=== PATIENT | male | born 1990 | race Caucasian/White ===

== ENCOUNTER 2018-08-20 18:36 | Emergency (ER) | payer BC ==
[2018-08-20] MEDS ORDERED: Sodium Chloride 0.9% 1,000 ML IV ONE (19:46)
[2018-08-20 20:11] LABS: VENOUS BLOOD GAS BASE EXCESS -0.2 mmol/L (0.0-2.0); VENOUS BLOOD GAS PCO2 44 mmHg (40-60); VENOUS BLOOD GAS PO2 25 mm/Hg (30-55); VENOUS BLOOD PH 7.37 (7.32-7.43)
[2018-08-20] MEDS ORDERED: Sodium Chloride 0.9% 1,000 ML ONE (20:11)
[2018-08-20 20:26] LABS: BASO # 0.1 K/uL (0.0-0.2); BASO % 0.9 % (0.0-2.0); EOS % 0.1 % (0.0-4.0); HEMOGLOBIN 13.1 g/dL (12.0-18.0); LYMPH # 1.6 K/uL (1.0-4.3); LYMPH % 25.7 % (20.0-40.0); MEAN CELL VOLUME 87.8 fL (80.0-94.0); MEAN CORPUSCULAR HEMOGLOBIN 28.3 pg (27.0-31.0); MEAN CORPUSCULAR HGB CONC 32.3 g/dL (33.0-37.0); MEAN PLATELET VOLUME 8.5 fL (7.2-11.7); MONO # 0.6 K/uL (0.0-0.8); MONO % 9.5 % (0.0-10.0); NEUT # 3.9 K/uL (1.8-7.0); NEUT % 63.8 % (50.0-75.0); NRBC % 0.2 % (0.0-2.0); PLATELET COUNT 176 K/uL (130-400); RBC 4.61 Mil/uL (4.40-5.90); RED CELL DISTRIBUTION WIDTH 12.7 % (11.5-14.5)
[2018-08-20 20:28] VITALS: O2SAT 97
[2018-08-20 20:39] LABS: ALBUMIN 4.4 g/dL (3.5-5.0); BLOOD UREA NITROGEN 8 mg/dL (9-20); CALCIUM 8.9 mg/dl (8.6-10.4); GFR NON-AFRICAN AMERICAN > 60
[2018-08-20 20:40] LABS: ALB/GLOB RATIO 1.3 (1.0-2.1); ALT/SGPT 48 U/L (21-72); AST/SGOT 52 U/L (17-59)
--- NOTE | 2018-08-20 21:01 | C.PDOC ---
History Of Present Illness 28 year old male presents to ED with complaint of fever, chills, eye burning, and epigastric pain since last night. Patient has a temperature of 103. He recently arrived from [place] on 07/22/18 and started experiencing fever on 9. He saw his PMD and tested positive for Dengue fever. Patient states that he has been feeling better, but these symptoms began last night. He was not tested for malaria or typhoid fever. He denies any sick contacts. Patient denies nausea, vomiting, and diarrhea. <Nova Cochran - Last Filed: 08/20/18 22:15> History Per: Patient History/Exam Limitations: no limitations Onset/Duration Of Symptoms: Days (1) Current Symptoms Are (Timing): Still Present Context: Travel Location Of Pain/Discomfort: Epigastric Quality Of Discomfort: "Pain" Associated Symptoms: Fever, Chills, Other (eye burning). denies: Nausea, Vomiting, Diarrhea <Nova Cochran - Last Filed: 08/20/18 22:15> <Aleena Odonnell - Last Filed: 08/21/18 21:00> Time Seen by Provider: 08/20/18 19:46 Chief Complaint (Nursing): Flu-like Symptoms Past Medical History Reviewed: Historical Data, Nursing Documentation, Vital Signs Vital Signs: Last Vital Signs Temp 98.8 F 08/20/18 19:02 Pulse 92 H 08/20/18 20:27 Resp 18 08/20/18 20:27 BP 115/75 08/20/18 20:27 Pulse Ox 97 08/20/18 20:27 - Medical History PMH: No Chronic Diseases Surgical History: No Surg Hx Family History: States: Unknown Family Hx - Social History Hx Alcohol Use: Yes Hx Substance Use: No - Immunization History Hx Tetanus Toxoid Vaccination: No Hx Influenza Vaccination: No Hx Pneumococcal Vaccination: No <Nova Cochran - Last Filed: 08/20/18 22:15> Vital Signs: Last Vital Signs Temp 99.1 F 08/20/18 21:36 Pulse 90 08/20/18 21:36 Resp 20 08/20/18 21:36 BP 108/73 08/20/18 21:36 Pulse Ox 97 08/20/18 22:17 <Aleena Odonnell - Last Filed: 08/21/18 21:00> Review Of Systems Constitutional: Positive for: Fever, Chills. Negative for: Weakness Eyes: Positive for: Pain (burning sensation) Cardiovascular: Negative for: Chest Pain, Palpitations Respiratory: Negative for: Cough, Shortness of Breath Gastrointestinal: Positive for: Abdominal Pain (epigastric area). Negative for: Nausea, Vomiting, Diarrhea Neurological: Negative for: Weakness, Numbness, Dizziness <Nova Cochran - Last Filed: 08/20/18 22:15> Physical Exam - Physical Exam Appears: Non-toxic, Other (mildly uncomfortable) Skin: Normal Color, Warm, Dry, No Rash Head: Atraumatic, Normacephalic Eye(s): bilateral: Normal Inspection, PERRL, EOMI Throat: Normal, No Erythema, No Exudate Neck: Normal ROM, Supple Lymphatic: No Other (lymphadenopathy) Chest: Symmetrical, No Deformity Cardiovascular: Rhythm Regular, Other (Tachycardic) Respiratory: No Accessory Muscle Use, No Rales, No Rhonchi, No Wheezing Gastrointestinal/Abdominal: Soft, No Tenderness Extremity: Capillary Refill (<2 seconds) Extremity: Bilateral: Atraumatic, Normal Color And Temperature Pulses: Left Radial: Normal, Right Radial: Normal Neurological/Psych: Oriented x3, Normal Speech, Normal Cognition <Nova Cochran - Last Filed: 08/20/18 22:15> ED Course And Treatment - Laboratory Results Result Diagrams: 08/20/18 20:10 08/20/18 20:10 Lab Results: pO2 25 mm/Hg (30-55) L 08/20/18 20:00 VBG pH 7.37 (7.32-7.43) 08/20/18 20:00 VBG pCO2 44 mmHg (40-60) 08/20/18 20:00 VBG HCO3 23.3 mmol/L 08/20/18 20:00 VBG Total CO2 26.8 mmol/L (22-28) 08/20/18 20:00 VBG O2 Sat (Calc) 51.8 % (40-65) 08/20/18 20:00 VBG Base Excess -0.2 mmol/L (0.0-2.0) L 08/20/18 20:00 VBG Potassium 3.2 mmol/L (3.6-5.2) L 08/20/18 20:00 Sodium 137.0 mmol/l (132-148) 08/20/18 20:00 Chloride 104.0 mmol/L (98-107) 08/20/18 20:00 Glucose 102 mg/dl (75-110) 08/20/18 20:00 Lactate 1.7 mmol/L (0.7-2.1) 08/20/18 20:00 Total Bilirubin 1.6 mg/dL (0.2-1.3) H 08/20/18 20:10 AST 52 U/L (17-59) 08/20/18 20:10 ALT 48 U/L (21-72) 08/20/18 20:10 Alkaline Phosphatase 88 U/L (38-126) 08/20/18 20:10 Total Protein 7.9 g/dL (6.3-8.3) 08/20/18 20:10 Albumin 4.4 g/dL (3.5-5.0) 08/20/18 20:10 Globulin 3.5 gm/dL (2.2-3.9) 08/20/18 20:10 Albumin/Globulin Ratio 1.3 (1.0-2.1) 08/20/18 20:10 O2 Sat by Pulse Oximetry: 97 (RA) Progress Note: Labs ordered with UA, flu a/b, and Dengue fever AB for patient. Patient given IV fluids and Toradol IVP. EKG and CXR ordered for patient. <Nova Cochran - Last Filed: 08/20/18 22:15> - Laboratory Results Result Diagrams: 08/20/18 20:10 08/20/18 20:10 Lab Results: pO2 25 mm/Hg (30-55) L 08/20/18 20:00 VBG pH 7.37 (7.32-7.43) 08/20/18 20:00 VBG pCO2 44 mmHg (40-60) 08/20/18 20:00 VBG HCO3 23.3 mmol/L 08/20/18 20:00 VBG Total CO2 26.8 mmol/L (22-28) 08/20/18 20:00 VBG O2 Sat (Calc) 51.8 % (40-65) 08/20/18 20:00 VBG Base Excess -0.2 mmol/L (0.0-2.0) L 08/20/18 20:00 VBG Potassium 3.2 mmol/L (3.6-5.2) L 08/20/18 20:00 Sodium 137.0 mmol/l (132-148) 08/20/18 20:00 Chloride 104.0 mmol/L (98-107) 08/20/18 20:00 Glucose 102 mg/dl (75-110) 08/20/18 20:00 Lactate 1.7 mmol/L (0.7-2.1) 08/20/18 20:00 Total Bilirubin 1.6 mg/dL (0.2-1.3) H 08/20/18 20:10 AST 52 U/L (17-59) 08/20/18 20:10 ALT 48 U/L (21-72) 08/20/18 20:10 Alkaline Phosphatase 88 U/L (38-126) 08/20/18 20:10 Total Protein 7.9 g/dL (6.3-8.3) 08/20/18 20:10 Albumin 4.4 g/dL (3.5-5.0) 08/20/18 20:10 Globulin 3.5 gm/dL (2.2-3.9) 08/20/18 20:10 Albumin/Globulin Ratio 1.3 (1.0-2.1) 08/20/18 20:10 Urine Color Yellow (YELLOW) 08/20/18 21:27 Urine Clarity Clear (Clear) 08/20/18 21:27 Urine pH 7.0 (5.0-8.0) 08/20/18 21:27 Ur Specific [place] 1.004 (1.003-1.030) 08/20/18 21:27 Urine Protein Negative mg/dL (NEGATIVE) 08/20/18 21:27 Urine Glucose (UA) Normal mg/dL (Normal) 08/20/18 21: Urine Ketones Negative mg/dL (NEGATIVE) 08/20/18 21:27 Urine Blood Negative (NEGATIVE) 08/20/18 21:27 Urine Nitrate Negative (NEGATIVE) 08/20/18 21: Urine Bilirubin Negative (NEGATIVE) 08/20/18 21: Urine Urobilinogen Normal mg/dL (0.2-1.0) 08/20/18 21:27 Ur Leukocyte Esterase Neg Yolis/uL (Negative) 08/20/18 21:27 Urine WBC (Auto) 3 /hpf (0-5) 08/20/18 21:27 Urine RBC (Auto) 1 /hpf (0-3) 08/20/18 21:27 Ur Squamous Epith Cells < 1 /hpf (0-5) 08/20/18 21:27 Urine Bacteria Rare (<OCC) 08/20/18 21:27 <Aleena Odonnell - Last Filed: 08/21/18 21:00> Disposition Counseled Patient/Family Regarding: Studies Performed, Diagnosis, Need For Followup, Rx Given - Disposition Disposition Time: 22:15 <Nova Cochran - Last Filed: 08/20/18 22:15> <Aleena Odonnell - Last Filed: 08/21/18 21:00> - Disposition Referrals: Rich Gaines MD [Staff Provider] - Disposition: HOME/ ROUTINE Condition: STABLE Additional Instructions: FOLLOW UP WITH YOUR DOCTOR IN 1-2 DAYS DRINK PLENTY OF FLUIDS, AND GET REST USE NAPROSYN, MOTRIN, TYLENOL NEEDED FOR PAIN, FEVER RETURN TO ER IF YOUR SYMPTOMS WORSE SOME OF YOUR TESTS ARE SEND OUTS, AND WILL TAKE SEVERAL DAYS TO RESULT COME TO MEDICAL RECORDS IN 5-7 DAYS FOR RESULTS Prescriptions: Naproxen 375 mg PO BID PRN #20 tablet PRN Reason: pain Instructions: Viral Syndrome (DC) Forms: [employer] (Gambian) Print Language: LAO - Clinical Impression Clinical Impression: Viral syndrome - Scribe Statement The provider has reviewed the documentation as recorded by the Scribe (Kellen Santiago) All medical record entries made by the Scribe were at my direction and personally dictated by me. I have reviewed the chart and agree that the record accurately reflects my personal performance of the history, physical exam, m edical decision making, and the department course for this patient. I have also personally directed, reviewed, and agree with the discharge instructions and disposition. <Nova Cochran - Last Filed: 08/20/18 22:15> Addendum Addendum: 08/21/18 20:27 Notified by micro +blood culture both anaerobic bottles growing Gram - rods. Patient notified. States he did have fever today but temp is 99 now. He denies any associated abdominal pain, N/V/D, chest pain or SOB. He was advised to return to the hospital for IV antibiotics viviane. 08/21/18 21:00 Dr Lachelle Gaines notified of results. <Aleena Odonnell - Last Filed: 08/21/18 21:00>
[2018-08-20 21:42] LABS: SQUAMOUS EPITHIAL < 1 /hpf (0-5); URINE BACTERIA RARE (<OCC); URINE BILIRUBIN NEGATIVE (NEGATIVE); URINE BLOOD NEGATIVE (NEGATIVE); URINE CLARITY Clear (Clear); URINE COLOR Yellow (YELLOW); URINE GLUCOSE (UA) NORMAL (Normal); URINE LEUKOCYTE ESTERASE NEG Leu/uL (Negative); URINE PROTEIN NEGATIVE (NEGATIVE); URINE UROBILINOGEN NORMAL mg/dL (0.2-1.0)
[2018-08-20 22:07] LABS: INTRACELLULAR PARASITE NEGATIVE (NEGATIVE)
[2018-08-20 22:26] VITALS: BP 108/73; PULSE 90; RESP 20; TEMP 99.1
--- NOTE | 2018-08-21 08:33 | RAD ---
Chest x-ray single frontal view HISTORY: Fever. COMPARISON: None available. Findings: No focal infiltrate or effusion. Heart size within normal limits. Impression: No focal infiltrate or effusion.
[2018-08-21 10:15] LABS: INTRACELLULAR PARASITE NEGATIVE (NEGATIVE)
--- NOTE | 2018-08-21 21:37 | CARD ---
APPROVED REPORT Date of service: 08/20/2018 EKG Measurement Heart [id number] <Conclusion> Normal sinus rhythm Normal ECG
== END 2018-08-20 22:28 | disposition home or self-care (01) ==
LOC: C.ER 18:36
DX: B34.9 Viral infection, unspecified (principal)
CPT/HCPCS: 71045; 80053; 81001; 82550; 82803; 85025; 86790; 87040; 87086; 87205; 87206; 87207; 87804; 93005; 96361; 96374; 99283; J1885; J7030

== ENCOUNTER 2018-08-21 21:36 | Inpatient (IN) | payer BC ==
--- NOTE | 2018-08-21 22:00 | C.PDOC ---
History Of Present Illness 28 y/o male returns to the ED for evaluation due to positive blood cultures. Patient was seen here seen yesterday for fever. He returned from [place] last month and has since been spiking fevers. Patient had also seen his PMD, and had positive dengue fever antibodies on outpatient labs. Yesterday patient had blood cultures which were positive for gram negative bacteria, and he was called to come back for IV antibiotics. Labs also demonstrated negative flu, negative malaria and parasite smears. Patient offers no new complaints, reports he still has fever today with Tmax of 103 at home. Patient also complains of epigastric discomfort today. No diarrhea. He had some vomiting yesterday, none today. Time Seen by Provider: 08/21/18 21:54 Chief Complaint (Nursing): Abnormal Labs History Per: Patient History/Exam Limitations: no limitations Onset/Duration Of Symptoms: Intermittent Episodes Current Symptoms Are (Timing): Still Present Reports Recently: Seen In ED Recent travel outside of the [place]: Yes ([place], 1 month ago) Past Medical History Reviewed: Historical Data, Nursing Documentation, Vital Signs Vital Signs: Last Vital Signs Temp 98.9 F 08/21/18 21:41 Pulse 96 H 08/21/18 21:41 Resp 20 08/21/18 21:41 BP 124/82 08/21/18 21:41 Pulse Ox 100 08/21/18 21:41 Surgical History: No Surg Hx Family History: States: Unknown Family Hx - Social History Hx Tobacco Use: No Hx Alcohol Use: Yes Hx Substance Use: No - Immunization History Hx Tetanus Toxoid Vaccination: No Hx Influenza Vaccination: No Hx Pneumococcal Vaccination: No Review Of Systems Constitutional: Positive for: Fever. Negative for: Sweats, Weight loss Cardiovascular: Negative for: Chest Pain Respiratory: Negative for: Shortness of Breath Gastrointestinal: Positive for: Vomiting, Abdominal Pain. Negative for: Diarrhea Skin: Negative for: Rash Neurological: Negative for: Weakness, Headache, Dizziness Physical Exam - Physical Exam Appears: Non-toxic, No Acute Distress Skin: Warm, Dry, No Rash Head: Atraumatic, Normacephalic Eye(s): bilateral: Normal Inspection, PERRL, EOMI Oral Mucosa: Moist Neck: Normal ROM Chest: Symmetrical Cardiovascular: Rhythm Regular, No Murmur Respiratory: Normal Breath Sounds, No Rales, No Rhonchi, No Wheezing Gastrointestinal/Abdominal: Soft, No Tenderness, No Distention Extremity: Bilateral: Atraumatic, Normal ROM (x4) Neurological/Psych: Oriented x3, Normal Cranial Nerves, Other (No focal deficit) Gait: Steady ED Course And Treatment - Laboratory Results Result Diagrams: 08/21/18 22:17 02 22:17 Lab Interpretation: No Acute Changes O2 Sat by Pulse Oximetry: 100 (RA) Pulse Ox Interpretation: Normal Progress Note: Will repeat labs and initiate IV antibiotics. Paged PMD Dr. Rcih Gaines - Physician Consult Information Outcome Of Conversation: Case discussed with Dr Gaines and patient is to be admitted to Dr Thomas Bartholomew for IV antibiotics. Disposition - Disposition Disposition: HOSPITALIZED Disposition Time: 22:47 Condition: STABLE - POA Present On Arrival: None - Clinical Impression Clinical Impression: Bacteremia - Scribe Statement The provider has reviewed the documentation as recorded by the Johny Donis Provider Attestation: All medical record entries made by the Johny were at my direction and personally dictated by me. I have reviewed the chart and agree that the record accurately reflects my personal performance of the history, physical exam, medical decision making, and the department course for this patient. I have also personally directed, reviewed, and agree with the discharge instructions and disposition.
[2018-08-21] MEDS ORDERED: Sodium Chloride 0.9% 1,000 ML IV ONE (22:08)
[2018-08-21 22:24] LABS: BASO % 0.6 % (0.0-2.0); EOS % 0.2 % (0.0-4.0); HEMOGLOBIN 12.8 g/dL (12.0-18.0); LYMPH # 1.3 K/uL (1.0-4.3); LYMPH % 27.7 % (20.0-40.0); MEAN CORPUSCULAR HEMOGLOBIN 29.1 pg (27.0-31.0); MEAN CORPUSCULAR HGB CONC 32.7 g/dL (33.0-37.0); MEAN PLATELET VOLUME 8.8 fL (7.2-11.7); MONO # 0.3 K/uL (0.0-0.8); MONO % 6.8 % (0.0-10.0); NEUT # 3.1 K/uL (1.8-7.0); NEUT % 64.7 % (50.0-75.0); RBC 4.4 Mil/uL (4.40-5.90); RED CELL DISTRIBUTION WIDTH 12.8 % (11.5-14.5); WHITE BLOOD COUNT 4.8 K/uL (4.8-10.8)
[2018-08-21 22:33] LABS: VENOUS BLOOD GAS BASE EXCESS -0.4 mmol/L (0.0-2.0); VENOUS BLOOD GAS PCO2 45 mmHg (40-60); VENOUS BLOOD GAS PO2 26 mm/Hg (30-55); VENOUS BLOOD PH 7.36 (7.32-7.43)
[2018-08-21 22:43] LABS: ALB/GLOB RATIO 1.2 (1.0-2.1); ALBUMIN 4.1 g/dL (3.5-5.0); ALT/SGPT 47 U/L (21-72); AST/SGOT 65 U/L (17-59); BLOOD UREA NITROGEN 6 mg/dL (9-20); CALCIUM 8.6 mg/dl (8.6-10.4); GFR NON-AFRICAN AMERICAN > 60
[2018-08-21] MEDS: Moxifloxacin IV 400mg/250ml NS 400 MG/250 ML BAG IVPB SCH (23:17)
[2018-08-21] MEDS ORDERED: Moxifloxacin IV 400mg/250ml NS 400 MG/250 ML BAG IVPB ONE (23:23)
[2018-08-22] MEDS: Dextrose 5%/0.45% NS 1,000 ML IV SCH ×3 (05:41→20:08)
--- NOTE | 2018-08-22 07:55 | CP.PCM.HP ---
Present on Admission - Present on Admission Any Indicators Present on Admission: No Past Patient History - Infectious Disease Hx of Infectious Diseases: None - Past Social History Smoking Status: Never Smoked - PSYCHIATRIC Hx Substance Use: No - SURGICAL HISTORY Hx Surgeries: No - ANESTHESIA Hx Anesthesia: No Meds Allergies/Adverse Reactions: Allergies Allergy/AdvReac Type Severity Reaction Status Date / Time No Known Allergies Allergy Verified 08/21/18 21:45 Physical Exam - Constitutional Appears: Well - Head Exam Head Exam: ATRAUMATIC, NORMAL INSPECTION, NORMOCEPHALIC - Eye Exam Eye Exam: EOMI, Normal appearance, PERRL Pupil Exam: NORMAL ACCOMODATION, PERRL - ENT Exam ENT Exam: Mucous Membranes Moist, Normal Exam - Neck Exam Neck exam: Positive for: Normal Inspection - Respiratory Exam Respiratory Exam: Decreased Breath Sounds - Cardiovascular Exam Cardiovascular Exam: REGULAR RHYTHM, +S1, +S2 - GI/Abdominal Exam GI & Abdominal Exam: Diminished Bowel Sounds, Soft - Rectal Exam Rectal Exam: Deferred Results - Vital Signs Recent Vital Signs: Last Vital Signs Temp 99.2 F 08/22/18 05:40 Pulse 88 08/22/18 05:40 Resp 20 08/22/18 05:40 BP 128/72 08/22/18 05:40 Pulse Ox 100 08/22/18 05:40 - Labs Result Diagrams: 09/02/18 08:06 09/02/18 08:06 Labs: Laboratory Results - last 24 hr 08/21/18 08/21/18 08/21/18 22:17 22:17 22:30 WBC 4.8 RBC 4.40 Hgb 12.8 Hct 39.2 MCV 89.0 MCH 29.1 MCHC 32.7 L RDW 12.8 Plt Count 141 MPV 8.8 Neut % (Auto) 64.7 Lymph % (Auto) 27.7 [place] % (Auto) 6.8 Eos % (Auto) 0.2 Baso % (Auto) 0.6 Neut # (Auto) 3.1 Lymph # (Auto) 1.3 [place] # (Auto) 0.3 Eos # (Auto) 0.0 Baso # (Auto) 0.0 pO2 26 L VBG pH 7.36 VBG pCO2 45 VBG HCO3 23.2 VBG Total CO2 26.8 VBG O2 Sat (Calc) 53.6 VBG Base Excess -0.4 L VBG Potassium 3.3 L Glucose 103 Lactate 1.2 FiO2 21.0 Sodium 136 138.0 Potassium 4.0 Chloride 102 107.0 Carbon Dioxide 25 Anion Gap 13 BUN 6 L Creatinine 0.8 Est GFR ( Amer) > 60 Est GFR (Non-Af Amer) > 60 Random Glucose 121 H Calcium 8.6 Total Bilirubin 1.7 H AST 65 H D ALT 47 Alkaline Phosphatase 108 Total Protein 7.6 Albumin 4.1 Globulin 3.5 Albumin/Globulin Ratio 1.2 Venous Blood Potassium 3.3 L Assessment & Plan - Assessment and Plan (Free Text) Plan: IV Avelox IV Rocephin Protonix Lovenox IV fluids ID consult
[2018-08-22] MEDS ORDERED: cefTRIAXone IV 1 gm in Dextros 50 ML IVPB SCH (10:00)
[2018-08-22] MEDS: Pantoprazole 40 mg EC Tab PO SCH (11:19)
[2018-08-22] MEDS: Enoxaparin 40 mg Syringe SC SCH (11:19)
--- NOTE | 2018-08-22 16:19 | CP.PCM.CON ---
History of Present Illness - History of Present Illness History of Present Illness: dictated Past Patient History - Infectious Disease Hx of Infectious Diseases: None - Past Medical History & Family History Past Medical History?: Yes - Past Social History Smoking Status: Never Smoked - CARDIAC Hx Cardiac Disorders: No - PULMONARY Hx Respiratory Disorders: No - NEUROLOGICAL Hx Neurological Disorder: No - HEENT Hx HEENT Problems: No - RENAL Hx Chronic Kidney Disease: No - ENDOCRINE/METABOLIC Hx Endocrine Disorders: No - HEMATOLOGICAL/ONCOLOGICAL Hx Blood Disorders: Yes Other/Comment: jaundice 2011 - INTEGUMENTARY Hx Dermatological Problems: No - MUSCULOSKELETAL/RHEUMATOLOGICAL Hx Musculoskeletal Disorders: No Hx Falls: No - GASTROINTESTINAL Hx Gastrointestinal Disorders: No - GENITOURINARY/GYNECOLOGICAL Hx Genitourinary Disorders: No - PSYCHIATRIC Hx Psychophysiologic Disorder: No Hx Substance Use: No - SURGICAL HISTORY Hx Surgeries: No - ANESTHESIA Hx Anesthesia: No Hx Anesthesia Reactions: No Meds Allergies/Adverse Reactions: Allergies Allergy/AdvReac Type Severity Reaction Status Date / Time No Known Allergies Allergy Verified 08/21/18 21:45 - Medications Medications: Current Medications Acetaminophen (Tylenol 325mg Tab) 650 mg PO Q6 PRN PRN Reason: fever Last Admin: 08/22/18 12:06 Dose: 650 mg Enoxaparin Sodium (Lovenox) 40 mg SC DAILY [place] Last Admin: 08/22/18 11:19 Dose: 40 mg Dextrose/Sodium Chloride (Dextrose 5%/0.45% Ns 1000 Ml) 1,000 mls @ 100 mls/hr IV .Q10H [place] Last Admin: 08/22/18 11:20 Dose: 100 mls/hr Moxifloxacin HCl (Avelox Iv 400mg/250ml Ns) 400 mg in 250 mls @ 167 mls/hr IVPB Q24H [place]; Protocol Last Admin: 08/21/18 23:17 Dose: 167 mls/hr Ceftriaxone Sodium (Rocephin Iv 1 Gm Duplex) 50 mls @ 100 mls/hr IVPB DAILY [place]; Protocol Last Admin: 08/22/18 11:20 Dose: 100 mls/hr Pantoprazole Sodium (Protonix Ec Tab) 40 mg PO DAILY [place] Last Admin: 08/22/18 11:19 Dose: 40 mg Results - Vital Signs Recent Vital Signs: Last Vital Signs Temp 99.6 F 08/22/18 15:00 Pulse 98 H 08/22/18 15:00 Resp 20 08/22/18 15:00 BP 112/72 08/22/18 15:00 Pulse Ox 98 08/22/18 15:00 - Labs Result Diagrams: 08/21/18 22:17 08/21/18 22:17 Labs: Laboratory Results - last 24 hr 08/21/18 08/21/18 08/21/18 22:17 22:17 22:30 WBC 4.8 RBC 4.40 Hgb 12.8 Hct 39.2 MCV 89.0 MCH 29.1 MCHC 32.7 L RDW 12.8 Plt Count 141 MPV 8.8 Neut % (Auto) 64.7 Lymph % (Auto) 27.7 [place] % (Auto) 6.8 Eos % (Auto) 0.2 Baso % (Auto) 0.6 Neut # (Auto) 3.1 Lymph # (Auto) 1.3 [place] # (Auto) 0.3 Eos # (Auto) 0.0 Baso # (Auto) 0.0 pO2 26 L VBG pH 7.36 VBG pCO2 45 VBG HCO3 23.2 VBG Total CO2 26.8 VBG O2 Sat (Calc) 53.6 VBG Base Excess -0.4 L VBG Potassium 3.3 L Glucose 103 Lactate 1.2 FiO2 21.0 Sodium 136 138.0 Potassium 4.0 Chloride 102 107.0 Carbon Dioxide 25 Anion Gap 13 BUN 6 L Creatinine 0.8 Est GFR ( Amer) > 60 Est GFR (Non-Af Amer) > 60 Random Glucose 121 H Calcium 8.6 Total Bilirubin 1.7 H AST 65 H D ALT 47 Alkaline Phosphatase 108 Total Protein 7.6 Albumin 4.1 Globulin 3.5 Albumin/Globulin Ratio 1.2 Venous Blood Potassium 3.3 L
[2018-08-22] MEDS ORDERED: Iohexol 300 100 ML IJ ONE (16:53)
[2018-08-22] MEDS: Moxifloxacin IV 400mg/250ml NS 400 MG/250 ML BAG IVPB SCH (22:26)
[2018-08-23] MEDS: Gentamicin 80 mg in 0.9% NS 80 MG/100 ML BAG IVPB SCH ×2 (00:42→08:04)
[2018-08-23 07:44] LABS: ALB/GLOB RATIO 1.5 (1.0-2.1); ALBUMIN 4.3 g/dL (3.5-5.0); ALT/SGPT 34 U/L (21-72); AST/SGOT 28 U/L (17-59); BLOOD UREA NITROGEN 23 mg/dL (9-20); CALCIUM 9.6 mg/dl (8.6-10.4); GFR NON-AFRICAN AMERICAN > 60
[2018-08-23 07:53] LABS: BASO # 0.1 K/uL (0.0-0.2); BASO % 0.6 % (0.0-2.0); EOS # 0.3 K/uL (0.0-0.7); EOS % 2.6 % (0.0-4.0); HEMOGLOBIN 11.2 g/dL (12.0-18.0); LYMPH # 2.5 K/uL (1.0-4.3); LYMPH % 26.8 % (20.0-40.0); MEAN CORPUSCULAR HEMOGLOBIN 26.6 pg (27.0-31.0); MEAN CORPUSCULAR HGB CONC 31.6 g/dL (33.0-37.0); MEAN PLATELET VOLUME 11.6 fL (7.2-11.7); MONO # 0.9 K/uL (0.0-0.8); MONO % 9.7 % (0.0-10.0); NEUT # 5.7 K/uL (1.8-7.0); NEUT % 60.3 % (50.0-75.0); RBC 4.2 Mil/uL (4.40-5.90); RED CELL DISTRIBUTION WIDTH 16.1 % (11.5-14.5)
--- NOTE | 2018-08-23 08:01 | CON ---
DATE: 08/22/2018 INFECTIOUS DISEASE CONSULTATION REQUESTED BY: Dr. Christian Bartholomew HISTORY OF PRESENT ILLNESS: This patient is a 28-year-old male. He gives me history that on 06/21/2019 he went to [place] and came back on 07/22/2018. He said he stayed there and was fine. from the home which was filtered. He is vegetarian. He ate eggs otherwise. He ate lot of other dishes. When he came back three days later, he started to have fever. He was spiking fevers. He went to his PMD who is Dr. Rich Gaines and he did a lot of blood works including chikungunya and dengue, and he had IgG and IgM positive for dengue. He was monitoring his platelets and since there is no treatment. He was told to monitor his labs. He also had some LFTs elevated. He again labs done and he was doing fine on 08/11/2018, and he was given to go to work on 08/14/2018, but now again he started to spike fevers, and he came to the emergency room on 08/20/2018. They amber blood. He was called again as he has positive blood cultures. He does have gram-negative blood cultures positive ID and sensitivity of which is pending. He feels weak. He says his eyes were burning and complains of some epigastric discomfort. He vomited night before. He said he vomited twice whatever he ate. He does complain of some abdominal pain. I do not see any CAT scan done. PAST MEDICAL HISTORY: He denies any past medical history except that he had jaundice few years ago. 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 He denies any alcohol, drug or substance abuse. He is not . PAST SURGICAL HISTORY: He denies any previous surgeries. FAMILY HISTORY: No family history. REVIEW OF SYSTEMS: He showed me the labs from his doctor which he has with him. On examination, he does say he has been having fevers. Denies any night sweats. No weight loss. Denies any headaches. No ear, nose, throat problems now, did complain of ear burning. Denies any shortness of breath. No chest pain. No cough or cold. Denies any diarrhea. Does complain of vomiting and abdominal pain now. Denies any skin rash. No joint issues. Denies any neurological problems of dizziness, syncope or headaches at this time. Has no rashes. No joint issues. PHYSICAL EXAMINATION: VITAL SIGNS: I find he did spike temp of 103 this morning. He had a T-max temperature, pulse rate is 98, blood pressure 112/72, respirations are 20. HEENT: Head is atraumatic and normocephalic. GENERAL: He is alert, oriented x3. Pupils are reacting to light. No icterus present. No pallor present. Tongue is dry. NECK: Supple. No lymphadenopathy present. Trachea is central. CHEST WALL: Symmetrical. No crackles or rales heard. No wheezing. No rhonchi. HEART: S1 and S2 are regular. No murmurs noted. No gallop. ABDOMEN: Soft. There is some minimal tenderness in the right upper quadrant. No guarding, no rigidity present. Bowel sounds are gurgling. EXTREMITIES: Have no edema, clubbing or cyanosis. SKIN: No skin rashes noted. MUSCULOSKELETAL: No joint issues. No joint swelling. LABORATORY DATA: Labs are noted. Labs show white count is 4.8, hemoglobin 12.8, hematocrit 39.2, platelet count is 141. ABG was done which is, I think, they did for the lactic acid. Lactate is 1.2. Sodium is 136, chlorides are 102, CO2 is 25, anion gap is 13, BUN is 6, glucose is 121. Total bili is 1.7. AST is 65. ASSESSMENT AND PLAN: Potassium was 3.3 which needs to be supplemented and in the chemistry it was 4, so that was a venous blood. Now, at this time, they have blood cultures which were gram negative. We are waiting for the final identification and sensitivity, but there are two sets, which are gram-negative rods, and I would worry about Salmonella at this point since he has a history of travel. His medications at this time are Tylenol. He is on Rocephin and he is on Avelox. Both will cover for Salmonella and Shigella at this time, so we will continue those and we will get a CAT scan of the abdomen and pelvis. We will wait for the identification and sensitivity of the organism and also get an echocardiogram done to rule out any vegetation. We will follow with Dr. Christian Bartholomew. He does have a history of dengue also, so we will need to monitor the platelets closely. The patient does not give any history of having chronic medications. He is not hypertensive or diabetic and is not on any routine medications. Christi Fragoso MD
[2018-08-23 08:29] LABS: WHITE BLOOD COUNT 9.4 K/uL (4.8-10.8)
[2018-08-23 08:30] LABS: MEAN CELL VOLUME 84.5 fL (80.0-94.0)
--- NOTE | 2018-08-23 08:45 | CT ---
Date of service: 08/22/2018 PROCEDURE: CT Abdomen and Pelvis with contrast HISTORY: gram negative septicemia r/o salmonella enteritis COMPARISON: None available. TECHNIQUE: Contrast dose: 100 cc Omnipaque 300 Radiation dose: Total exam DLP = 1248.82 mGy-cm. This CT exam was performed using one or more of the following dose reduction techniques: Automated exposure control, adjustment of the mA and/or kV according to patient size, and/or use of iterative reconstruction technique. FINDINGS: LOWER THORAX: No visible consolidation, pleural effusion, or pneumothorax. LIVER: Hepatomegaly. GALLBLADDER AND BILE DUCTS: Unremarkable. PANCREAS: Unremarkable. SPLEEN: Splenomegaly. ADRENALS: Unremarkable. KIDNEYS AND URETERS: The kidneys enhance symmetrically. No hydronephrosis or obstructing calculus identified. Punctate nonobstructing bilateral renal calculi. 13 mm right lower pole cyst and too small to characterize right lower pole hypodensity measuring approximately 7 mm statistically likely a cyst. VASCULATURE: No aortic aneurysm. No atherosclerotic calcification or mural plaque present. BOWEL: Stomach is nondistended. Lack of oral contrast limits evaluation for bowel pathology. Bowel loops appear within normal limits of caliber without evidence of obstruction. Apparent mild wall thickening involving the right and portions of the left proximal colon may be exaggerated by under distension; possibility of colitis may be considered. APPENDIX: The appendix appears within normal limits of caliber. No secondary signs of acute appendicitis. PERITONEUM: No significant free fluid. No definite free air. LYMPH NODES: Left retroperitoneal lymph node measures approximately 1.9 cm in short axis. Extensive sub cm mesenteric as well as retroperitoneal adenopathy, nonspecific; correlate clinically for possibility of mesenteric adenitis. BLADDER: Unremarkable. REPRODUCTIVE: Unremarkable. BONES: No acute osseous abnormality is detected. OTHER FINDINGS: None. IMPRESSION: Left retroperitoneal lymph node measures approximately 1.9 cm in short axis. Extensive subcentimeter mesenteric as well as retroperitoneal adenopathy, of uncertain etiology (infectious, inflammatory, neoplastic). Correlate clinically for possibility of mesenteric adenitis and follow-up as indicated. Lack of oral contrast limits evaluation for bowel pathology. Apparent mild wall thickening is noted involving the right colon and portions of the proximal left colon which may be exaggerated by under distension however the possibility of colitis must be considered. Correlate clinically. Hepatomegaly. Splenomegaly. Additional findings as above. Preliminary impression was provided by [facility].
[2018-08-23] MEDS: Meropenem 1 GM in Sodium Chloride 0.9% 100 ML IVPB SCH ×2 (09:22→17:33)
[2018-08-23] MEDS: Enoxaparin 40 mg Syringe SC SCH (09:22)
[2018-08-23] MEDS: Pantoprazole 40 mg EC Tab PO SCH (09:22)
[2018-08-23] MEDS: Dextrose 5%/0.45% NS 1,000 ML IV SCH ×3 (13:30→21:36)
--- NOTE | 2018-08-23 16:35 | CARD ---
APPROVED REPORT Date of service: 08/23/2018 EXAM: Two-dimensional and M-mode echocardiogram with Doppler and color Doppler. INDICATION Rule out subacute bacterial endocarditis 2D DIMENSIONS IVSd0.8 (0.7-1.1cm)Aortic Root (2D)3.0 (2.0-3.7cm) LVDd4.8 (3.9-5.9cm)PWd0.8 (0.7-1.1cm) LVDs3.2 (2.5-4.0cm)FS (%) 34.9 % LVEF (%)64.0 (>50%)LVEF (Pringle's)64.68 % IVC0.00 cm M-Mode DIMENSIONS Left Atrium (MM)3.38 (2.5-4.0cm)IVSd0.56 (0.7-1.1cm) Aortic Root2.65 (2.2-3.7cm)LVDd5.36 (4.0-5.6cm) Aortic Cusp Exc.2.17 (1.5-2.0cm)PWd0.68 (0.7-1.1cm) FS (%) 47 %LVDs2.82 (2.0-3.8cm) LVEF (%)64 (>50%) Mitral Valve MV E Grnsdsfa39.9cm/sMV A Gnwtmhcb34.3cm/sE/A ratio1.6 TDI Lateral E' Peak V12.68cm/sMedial E' Peak V11.77cm/sE/Lateral E'7.2 E/Medial E'7.7 Tricuspid Valve TR Peak Alketuyt013ee/sTR Peak Gr.[id number] LEFT VENTRICLE The left ventricle is normal size. There is normal left ventricular wall thickness. Left ventricle systolic function is normal. The Ejection Fraction is 60-65%. There is normal LV segmental wall motion. The left ventricular diastolic function is normal. There is no ventricular septal defect visualized. RIGHT VENTRICLE The right ventricle is normal size. There is normal right ventricular wall thickness. The right ventricular systolic function is normal. ATRIA The left atrium size is normal. The right atrium size is normal. AORTIC VALVE The aortic valve is tri-cuspid. The aortic valve is normal in structure. No aortic regurgitation is present. There is no aortic valvular stenosis. MITRAL VALVE The mitral valve is normal in structure. There is no evidence of mitral valve prolapse. There is no mitral valve regurgitation noted. TRICUSPID VALVE The tricuspid valve is normal in structure. There is trace tricuspid regurgitation. Right ventricular systolic pressure is estimated at less than 30 mmHg. There is no pulmonary hypertension. PULMONIC VALVE The pulmonary valve is normal in structure. There is trace pulmonic valvular regurgitation. GREAT VESSELS The aortic root is normal in size. The ascending aorta is normal in size. The IVC is normal in size and collapses >50% with inspiration. PERICARDIAL EFFUSION There is no pericardial effusion. <Conclusion> Left ventricle systolic function is normal. The Ejection Fraction is 60-65%. The left ventricular diastolic function is normal. No evidence of vegetations, CED is more specific to R/O endocardiis
--- NOTE | 2018-08-23 19:37 | CP.PCM.PN ---
Subjective - Date & Time of Evaluation Date of Evaluation: 08/23/18 Time of Evaluation: 14:40 - Subjective Subjective: dictated Objective - Vital Signs/Intake and Output Vital Signs (last 24 hours): Temp Pulse Resp BP Pulse Ox 103 F H 98 H 20 108/69 97 08/23/18 19:11 08/23/18 15:49 08/23/18 15:49 08/23/18 15:49 08/23/18 15:49 Intake and Output: 08/23/18 08/24/18 18:59 06:59 Intake Total 1680 Balance 1680 - Medications Medications: Current Medications Acetaminophen (Tylenol 325mg Tab) 650 mg PO Q6 PRN PRN Reason: fever Last Admin: 08/23/18 19:11 Dose: 650 mg Enoxaparin Sodium (Lovenox) 40 mg SC DAILY [facility] Last Admin: 08/23/18 09:22 Dose: 40 mg Moxifloxacin HCl (Avelox Iv 400mg/250ml Ns) 400 mg in 250 mls @ 167 mls/hr IVPB Q24H [facility]; Protocol Last Admin: 08/22/18 22:26 Dose: 167 mls/hr Meropenem 1 gm/ Sodium (Chloride) 100 mls @ 100 mls/hr IVPB Q8H [facility]; Protocol Last Admin: 08/23/18 17:33 Dose: 100 mls/hr Dextrose/Sodium Chloride (Dextrose 5%/0.45% Ns 1000 Ml) 1,000 mls @ 125 mls/hr IV .Q8H [facility] Last Admin: 08/23/18 14:06 Dose: 125 mls/hr Pantoprazole Sodium (Protonix Ec Tab) 40 mg PO DAILY [facility] Last Admin: 08/23/18 09:22 Dose: 40 mg - Labs Labs: 08/23/18 07:05 08/23/18 07:05
--- NOTE | 2018-08-23 19:53 | CP.PCM.PN ---
Subjective - Date & Time of Evaluation Date of Evaluation: 08/23/18 Time of Evaluation: 09:45 - Subjective Subjective: clinically same Objective - Vital Signs/Intake and Output Vital Signs (last 24 hours): Temp Pulse Resp BP Pulse Ox 103 F H 98 H 20 108/69 97 08/23/18 19:11 08/23/18 15:49 08/23/18 15:49 08/23/18 15:49 08/23/18 15:49 Intake and Output: 08/23/18 08/24/18 18:59 06:59 Intake Total 1680 Balance 1680 - Medications Medications: Current Medications Acetaminophen (Tylenol 325mg Tab) 650 mg PO Q6 PRN PRN Reason: fever Last Admin: 08/23/18 19:11 Dose: 650 mg Enoxaparin Sodium (Lovenox) 40 mg SC DAILY [facility] Last Admin: 08/23/18 09:22 Dose: 40 mg Meropenem 1 gm/ Sodium (Chloride) 100 mls @ 100 mls/hr IVPB Q8H [facility]; Protocol Last Admin: 08/23/18 17:33 Dose: 100 mls/hr Dextrose/Sodium Chloride (Dextrose 5%/0.45% Ns 1000 Ml) 1,000 mls @ 125 mls/hr IV .Q8H [facility] Last Admin: 08/23/18 14:06 Dose: 125 mls/hr Ciprofloxacin (Cipro 400mg/200ml Dsw) 400 mg in 200 mls @ 133 mls/hr IVPB Q12H [facility]; Protocol Lactobacillus Acidophilus (Lactobacillus) 1 cap PO BID [facility] Pantoprazole Sodium (Protonix Ec Tab) 40 mg PO DAILY [facility] Last Admin: 08/23/18 09:22 Dose: 40 mg - Labs Labs: 08/23/18 07:05 08/23/18 07:05 - Constitutional Appears: Well - Head Exam Head Exam: ATRAUMATIC, NORMAL INSPECTION, NORMOCEPHALIC - Eye Exam Eye Exam: EOMI, Normal appearance, PERRL Pupil Exam: NORMAL ACCOMODATION, PERRL - ENT Exam ENT Exam: Mucous Membranes Moist, Normal Exam - Neck Exam Neck Exam: Full ROM, Normal Inspection. absent: Lymphadenopathy - Respiratory Exam Respiratory Exam: Decreased Breath Sounds - Cardiovascular Exam Cardiovascular Exam: REGULAR RHYTHM, +S1, +S2 - GI/Abdominal Exam GI & Abdominal Exam: Soft, Diminished Bowel Sounds - Rectal Exam Rectal Exam: Deferred
[2018-08-23] MEDS ORDERED: Ciprofloxacin 400mg/200ml D5W 400 MG/200 ML BAG IVPB SCH (20:00)
--- NOTE | 2018-08-23 23:46 | PN ---
DATE: 08/23/2018 INFECTIOUS DISEASE FOLLOWUP SUBJECTIVE: The nurse called me this morning and told me the blood culture, which was done on 08/20/2018, grew Salmonella, which we expected, but the sensitivity is pending. The patient still had fever when I went there, but it was low grade. He was on Avelox and meropenem. His creatinine was 1.3 as he got some contrast for the CAT scan yesterday. He is still on IV fluids; however, when I am writing my note, the nurse called me that his fever went up to 103, so I decided to add gentamicin back again. We will follow the gentamicin random level tomorrow and hopefully the sensitivity for Salmonella will be available. It is sad that there may be some resistance to organisms at places and meropenem is also one of the drugs which can be used in resistant cases, so I am using that at this time. We will follow tomorrow. I have also left the Cipro on board and giving gentamicin 80 every 8 hours. This patient has had recently dengue fever. He did give me a history of having eggs here, which were in June, and he ate them in August, could be a possibility of causing problem, but other people who ate the same eggs have no illnesses at this time, so it may be dengue in [place], and as he was asymptomatic and here he has developed Salmonella from those eggs; however, his cultures are positive and he needs to be treated at this time. Remains still febrile, on two antibiotics. I have added gentamicin at this time for further this thing. We will repeat blood culture in the morning along with the labs. Otherwise, he has no other symptoms. PHYSICAL EXAMINATION: HEAD: Atraumatic, normocephalic. NECK: Supple. LUNGS: Clear. HEART: S1 and S2, regular. ABDOMEN: Soft, nontender. No guarding, no rigidity present. EXTREMITIES: No edema. I did check the CAT scan which showed some lymphadenopathy and hepatosplenomegaly along with right lumen colitis which is expected with the disease itself. He does have bacteremia, so it is worse than having just Salmonella infection in the stool. We will have to continue these antibiotics till he gets afebrile and will at least need 14 days of treatment. I also ordered an echocardiogram to rule out vegetation. We will repeat blood culture tomorrow and we will follow. Also we will repeat gentamicin random level in the morning and expect to have some sensitivities tomorrow from the micro lab. IMPRESSION: He has Salmonella bacteremia, history of travel, recent dengue. We will screen him for human immunodeficiency virus disease as he is a young male and has had these two illnesses most likely due to travel. We will follow. Christi Fragoso MD
[2018-08-24] MEDS: Meropenem 1 GM in Sodium Chloride 0.9% 100 ML IVPB SCH ×3 (01:04→18:32)
[2018-08-24] MEDS: Dextrose 5%/0.45% NS 1,000 ML IV SCH ×4 (05:30→21:27)
[2018-08-24 06:57] LABS: ALB/GLOB RATIO 1.1 (1.0-2.1); ALBUMIN 3.9 g/dL (3.5-5.0); ALT/SGPT 140 U/L (21-72); AST/SGOT 171 U/L (17-59); BLOOD UREA NITROGEN 2 mg/dL (9-20); CALCIUM 8.6 mg/dl (8.6-10.4); GFR NON-AFRICAN AMERICAN > 60
[2018-08-24 07:44] LABS: BASO % 0.6 % (0.0-2.0); EOS % 0.1 % (0.0-4.0); HEMOGLOBIN 12.2 g/dL (12.0-18.0); LYMPH # 1.6 K/uL (1.0-4.3); MEAN CORPUSCULAR HEMOGLOBIN 28.7 pg (27.0-31.0); MEAN CORPUSCULAR HGB CONC 32.6 g/dL (33.0-37.0); MEAN PLATELET VOLUME 9.6 fL (7.2-11.7); MONO # 0.3 K/uL (0.0-0.8); MONO % 6.8 % (0.0-10.0); NEUT # 2.6 K/uL (1.8-7.0); NEUT % 56.5 % (50.0-75.0); NRBC % 0.2 % (0.0-2.0); RBC 4.24 Mil/uL (4.40-5.90); RED CELL DISTRIBUTION WIDTH 13.2 % (11.5-14.5)
[2018-08-24 07:53] LABS: WHITE BLOOD COUNT 4.5 K/uL (4.8-10.8)
[2018-08-24] MEDS ORDERED: Potassium Chloride 20 mEq ER Tab PO ONE (09:07)
[2018-08-24] MEDS: Pantoprazole 40 mg EC Tab PO SCH (09:43)
[2018-08-24] MEDS: Enoxaparin 40 mg Syringe SC SCH (09:43)
[2018-08-24] MEDS: Lactobacillus Acidophilus 500 MU Cap PO SCH ×2 (09:43→18:32)
[2018-08-24] MEDS: Sulfamethoxazole/Trimethoprim 160 MG in Dextrose 5% In Water 250 ML IVPB SCH ×2 (11:45→20:12)
[2018-08-24] MEDS ORDERED: Potassium Chloride 20 mEq ER Tab PO SCH (12:00)
--- NOTE | 2018-08-24 13:48 | RAD ---
Date of service: 08/24/2018 HISTORY: fever COMPARISON: 08/20/2018 FINDINGS: LUNGS: No active pulmonary disease. PLEURA: No significant pleural effusion identified, no pneumothorax apparent. CARDIOVASCULAR: No aortic atherosclerotic calcification present. Normal cardiac size. No pulmonary vascular congestion. OSSEOUS STRUCTURES: No significant abnormalities. VISUALIZED UPPER ABDOMEN: Normal. OTHER FINDINGS: None. IMPRESSION: No active disease.
--- NOTE | 2018-08-24 14:22 | CP.PCM.PN ---
Subjective - Date & Time of Evaluation Date of Evaluation: 08/24/18 Time of Evaluation: 10:00 - Subjective Subjective: clinically same Objective - Vital Signs/Intake and Output Vital Signs (last 24 hours): Temp Pulse Resp BP Pulse Ox 101 F H 111 H 20 119/77 99 08/24/18 13:45 08/24/18 13:45 08/24/18 13:45 08/24/18 13:45 08/24/18 13:45 Intake and Output: 08/24/18 08/24/18 06:59 18:59 Intake Total 1500 Balance 1500 - Medications Medications: Current Medications Acetaminophen (Tylenol 325mg Tab) 650 mg PO Q6 PRN PRN Reason: fever Last Admin: 08/24/18 06:44 Dose: 650 mg Enoxaparin Sodium (Lovenox) 40 mg SC DAILY [facility] Last Admin: 08/24/18 09:43 Dose: 40 mg Meropenem 1 gm/ Sodium (Chloride) 100 mls @ 100 mls/hr IVPB Q8H [facility]; Protocol Last Admin: 08/24/18 09:44 Dose: 100 mls/hr Dextrose/Sodium Chloride (Dextrose 5%/0.45% Ns 1000 Ml) 1,000 mls @ 125 mls/hr IV .Q8H [facility] Last Admin: 08/24/18 13:43 Dose: 125 mls/hr Trimethoprim/Sulfamethoxazole (160 mg/ Dextrose) 250 mls @ 250 mls/hr IVPB Q8H [facility]; Protocol Last Admin: 08/24/18 11:45 Dose: 250 mls/hr Ibuprofen (Motrin Tab) 600 mg PO Q8H PRN PRN Reason: Fever >100.4 F Last Admin: 08/24/18 13:42 Dose: 600 mg Lactobacillus Acidophilus (Lactobacillus) 1 cap PO BID [facility] Last Admin: 08/24/18 09:43 Dose: 1 cap Pantoprazole Sodium (Protonix Ec Tab) 40 mg PO DAILY [facility] Last Admin: 08/24/18 09:43 Dose: 40 mg - Labs Labs: 08/24/18 07:21 08/24/18 06:28 - Constitutional Appears: Well - Head Exam Head Exam: ATRAUMATIC, NORMAL INSPECTION, NORMOCEPHALIC - Eye Exam Eye Exam: EOMI, Normal appearance, PERRL Pupil Exam: NORMAL ACCOMODATION, PERRL - ENT Exam ENT Exam: Mucous Membranes Moist, Normal Exam - Neck Exam Neck Exam: Full ROM, Normal Inspection. absent: Lymphadenopathy - Respiratory Exam Respiratory Exam: Decreased Breath Sounds - Cardiovascular Exam Cardiovascular Exam: REGULAR RHYTHM, +S1, +S2 - GI/Abdominal Exam GI & Abdominal Exam: Soft, Diminished Bowel Sounds - Rectal Exam Rectal Exam: Deferred
--- NOTE | 2018-08-24 14:23 | CP.PCM.PN ---
Subjective - Date & Time of Evaluation Date of Evaluation: 08/24/18 Time of Evaluation: 14:10 - Subjective Subjective: dictated Objective - Vital Signs/Intake and Output Vital Signs (last 24 hours): Temp Pulse Resp BP Pulse Ox 101 F H 111 H 20 119/77 99 08/24/18 13:45 08/24/18 13:45 08/24/18 13:45 08/24/18 13:45 08/24/18 13:45 Intake and Output: 08/24/18 08/24/18 06:59 18:59 Intake Total 1500 Balance 1500 - Medications Medications: Current Medications Acetaminophen (Tylenol 325mg Tab) 650 mg PO Q6 PRN PRN Reason: fever Last Admin: 08/24/18 06:44 Dose: 650 mg Enoxaparin Sodium (Lovenox) 40 mg SC DAILY [facility] Last Admin: 08/24/18 09:43 Dose: 40 mg Meropenem 1 gm/ Sodium (Chloride) 100 mls @ 100 mls/hr IVPB Q8H [facility]; Protocol Last Admin: 08/24/18 09:44 Dose: 100 mls/hr Dextrose/Sodium Chloride (Dextrose 5%/0.45% Ns 1000 Ml) 1,000 mls @ 125 mls/hr IV .Q8H [facility] Last Admin: 08/24/18 13:43 Dose: 125 mls/hr Trimethoprim/Sulfamethoxazole (160 mg/ Dextrose) 250 mls @ 250 mls/hr IVPB Q8H [facility]; Protocol Last Admin: 08/24/18 11:45 Dose: 250 mls/hr Ibuprofen (Motrin Tab) 600 mg PO Q8H PRN PRN Reason: Fever >100.4 F Last Admin: 08/24/18 13:42 Dose: 600 mg Lactobacillus Acidophilus (Lactobacillus) 1 cap PO BID [facility] Last Admin: 08/24/18 09:43 Dose: 1 cap Pantoprazole Sodium (Protonix Ec Tab) 40 mg PO DAILY [facility] Last Admin: 08/24/18 09:43 Dose: 40 mg - Labs Labs: 08/24/18 07:21 08/24/18 06:28
[2018-08-25] MEDS: Sulfamethoxazole/Trimethoprim 160 MG in Dextrose 5% In Water 250 ML IVPB SCH ×3 (03:07→19:41)
[2018-08-25] MEDS: Dextrose 5%/0.45% NS 1,000 ML IV SCH ×4 (04:23→21:08)
[2018-08-25] MEDS: Meropenem 1 GM in Sodium Chloride 0.9% 100 ML IVPB SCH ×3 (04:24→18:29)
[2018-08-25] MEDS: Lactobacillus Acidophilus 500 MU Cap PO SCH ×2 (10:42→18:29)
[2018-08-25] MEDS: Enoxaparin 40 mg Syringe SC SCH (10:42)
[2018-08-25] MEDS: Pantoprazole 40 mg EC Tab PO SCH (10:42)
--- NOTE | 2018-08-25 15:23 | CP.PCM.PN ---
Subjective - Date & Time of Evaluation Date of Evaluation: 08/25/18 Time of Evaluation: 10:30 - Subjective Subjective: clinically same Objective - Vital Signs/Intake and Output Vital Signs (last 24 hours): Temp Pulse Resp BP Pulse Ox 102.6 F H 88 20 118/75 99 08/25/18 14:55 08/25/18 11:00 08/25/18 11:00 08/25/18 11:00 08/25/18 11:00 Intake and Output: 08/25/18 08/25/18 06:59 18:59 Intake Total 500 Output Total 120 Balance 380 - Medications Medications: Current Medications Acetaminophen (Tylenol 325mg Tab) 650 mg PO Q6 PRN PRN Reason: fever Last Admin: 08/24/18 21:26 Dose: 650 mg Enoxaparin Sodium (Lovenox) 40 mg SC DAILY [facility] Last Admin: 08/25/18 10:42 Dose: 40 mg Meropenem 1 gm/ Sodium (Chloride) 100 mls @ 100 mls/hr IVPB Q8H [facility]; Protocol Last Admin: 08/25/18 10:41 Dose: 100 mls/hr Dextrose/Sodium Chloride (Dextrose 5%/0.45% Ns 1000 Ml) 1,000 mls @ 125 mls/hr IV .Q8H [facility] Last Admin: 08/25/18 13:15 Dose: Not Given Trimethoprim/Sulfamethoxazole (160 mg/ Dextrose) 250 mls @ 250 mls/hr IVPB Q8H [facility]; Protocol Last Admin: 08/25/18 11:59 Dose: 250 mls/hr Ibuprofen (Motrin Tab) 600 mg PO Q8H PRN PRN Reason: Fever >100.4 F Last Admin: 08/25/18 14:54 Dose: 600 mg Lactobacillus Acidophilus (Lactobacillus) 1 cap PO BID [facility] Last Admin: 08/25/18 10:42 Dose: 1 cap Pantoprazole Sodium (Protonix Ec Tab) 40 mg PO DAILY [facility] Last Admin: 08/25/18 10:42 Dose: 40 mg - Labs Labs: 08/24/18 07:21 08/24/18 06:28 - Constitutional Appears: Well - Head Exam Head Exam: ATRAUMATIC, NORMAL INSPECTION, NORMOCEPHALIC - Eye Exam Eye Exam: EOMI, Normal appearance, PERRL Pupil Exam: NORMAL ACCOMODATION, PERRL - ENT Exam ENT Exam: Mucous Membranes Moist, Normal Exam - Neck Exam Neck Exam: Full ROM, Normal Inspection. absent: Lymphadenopathy - Respiratory Exam Respiratory Exam: Decreased Breath Sounds - Cardiovascular Exam Cardiovascular Exam: REGULAR RHYTHM, +S1, +S2 - GI/Abdominal Exam GI & Abdominal Exam: Soft, Diminished Bowel Sounds - Rectal Exam Rectal Exam: Deferred
[2018-08-25 17:14] LABS: HEMOGLOBIN 12.2 g/dL (12.0-18.0); MEAN CELL VOLUME 87.8 fL (80.0-94.0); MEAN CORPUSCULAR HEMOGLOBIN 28.6 pg (27.0-31.0); MEAN CORPUSCULAR HGB CONC 32.6 g/dL (33.0-37.0); MEAN PLATELET VOLUME 9.5 fL (7.2-11.7); RBC 4.27 Mil/uL (4.40-5.90); RED CELL DISTRIBUTION WIDTH 13.4 % (11.5-14.5); WHITE BLOOD COUNT 6.2 K/uL (4.8-10.8)
[2018-08-25 17:46] LABS: BLOOD UREA NITROGEN 3 mg/dL (9-20); CALCIUM 8.4 mg/dl (8.6-10.4); GFR NON-AFRICAN AMERICAN > 60
[2018-08-25] MEDS ORDERED: Potassium Chloride 20 mEq ER Tab PO ONE (21:00)
[2018-08-26] MEDS: Meropenem 1 GM in Sodium Chloride 0.9% 100 ML IVPB SCH ×2 (01:34→10:43)
[2018-08-26] MEDS: Sulfamethoxazole/Trimethoprim 160 MG in Dextrose 5% In Water 250 ML IVPB SCH ×3 (02:50→18:40)
[2018-08-26 06:48] LABS: ALB/GLOB RATIO 1.1 (1.0-2.1); ALBUMIN 3.8 g/dL (3.5-5.0); ALT/SGPT 138 U/L (21-72); AST/SGOT 136 U/L (17-59); BLOOD UREA NITROGEN 3 mg/dL (9-20); CALCIUM 8.6 mg/dl (8.6-10.4); GFR NON-AFRICAN AMERICAN > 60
[2018-08-26 06:59] LABS: BASO % 0.5 % (0.0-2.0); EOS % 0.7 % (0.0-4.0); HEMOGLOBIN 11.7 g/dL (12.0-18.0); LYMPH # 2.3 K/uL (1.0-4.3); LYMPH % 40.5 % (20.0-40.0); MEAN CELL VOLUME 87.2 fL (80.0-94.0); MEAN CORPUSCULAR HEMOGLOBIN 29.2 pg (27.0-31.0); MEAN CORPUSCULAR HGB CONC 33.4 g/dL (33.0-37.0); MEAN PLATELET VOLUME 9.8 fL (7.2-11.7); MONO # 0.6 K/uL (0.0-0.8); NEUT # 2.7 K/uL (1.8-7.0); NEUT % 47.3 % (50.0-75.0); NRBC % 0.1 % (0.0-2.0); RBC 4.02 Mil/uL (4.40-5.90); RED CELL DISTRIBUTION WIDTH 13.3 % (11.5-14.5); WHITE BLOOD COUNT 5.7 K/uL (4.8-10.8)
--- NOTE | 2018-08-26 07:25 | PN ---
DATE: 08/24/2018 INFECTIOUS DISEASE FOLLOWUP SUBJECTIVE: The patient had been spiking temps all along at night, and this boring machine set up operator jig it was 103. The sensitivities also came out, and they showed that the cultures which were taken on 08/20/2018 those they are using for sensitivities and it appears that it showed Salmonella group A and this group A is intermediate to ampicillin, intermediate to Cipro. It is sensitive to Bactrim, and it is also sensitive to meropenem and Cefizox. He was getting initially Avelox and Rocephin, but that did not have. We added gentamicin and meropenem. He was on Cipro and still keeps on spiking temperature, so today I have changed the antibiotics to meropenem and Bactrim. If he continues to improve and cultures get negative, then maybe he will be continued on Bactrim to complete the course which will be at least two weeks because of bacteremia. The patient said he was vomiting, still had five to six diarrheas this morning. He wants to take a shower but in view of his high fever, I told him that the nurse should give him and he should clean himself. He is in isolation because of Salmonella. Otherwise, he denies any abdominal pain now. He did say yesterday he had abdominal pain and was vomiting, but now no pain. PHYSICAL EXAMINATION: VITAL SIGNS: His temperature at the time I am writing this note is 101.1 still, blood pressure is 112/72, respirations are 20, and pulse is 98. HEENT: Head is atraumatic and normocephalic. NECK: Supple. LUNGS: Clear. HEART: S1 and S2 are regular. ABDOMEN: Soft, nontender. No guarding, no rigidity present. EXTREMITIES: Have no edema. LABORATORY DATA: We also did a chest x-ray today to rule out other possibilities as he has a history of travel. X-ray was negative. I have ordered others stool studies. White count is 4.5, hemoglobin 12.2, hematocrit 37.3, platelet count is 139. His potassium was 3.5. He did receive potassium. His AST is elevated at 171 and ALT is 140, could be related to the sepsis or could be related to the medications what he needs at this time, need to cover with two antibiotics as we were not even controlling fever on three antibiotics before. His random is 2.5. So, still he has gentamicin on board. IMPRESSION: He has typhoid fever with Salmonella septicemia and has persistent fevers. PLAN: Need to be on IV fluids, antibiotics, potassium supplement and in isolation. We will follow. Christi Fragoso MD
[2018-08-26] MEDS: Dextrose 5%/0.45% NS 1,000 ML IV SCH ×2 (08:07→19:11)
[2018-08-26] MEDS: Potassium Chloride 20 mEq ER Tab PO SCH (08:08)
[2018-08-26] MEDS: Enoxaparin 40 mg Syringe SC SCH (09:45)
[2018-08-26] MEDS: Lactobacillus Acidophilus 500 MU Cap PO SCH ×2 (09:45→19:12)
[2018-08-26] MEDS: Pantoprazole 40 mg EC Tab PO SCH (09:45)
--- NOTE | 2018-08-26 14:20 | CP.PCM.PN ---
Subjective - Date & Time of Evaluation Date of Evaluation: 08/26/18 Time of Evaluation: 14:00 - Subjective Subjective: dictated Objective - Vital Signs/Intake and Output Vital Signs (last 24 hours): Temp Pulse Resp BP Pulse Ox 99.4 F 100 H 20 99/64 L 98 08/26/18 08:00 08/26/18 08:00 08/26/18 08:00 08/26/18 08:00 08/26/18 08:00 Intake and Output: 08/26/18 08/26/18 06:59 18:59 Intake Total 1000 550 Balance 1000 550 - Medications Medications: Current Medications Acetaminophen (Tylenol 325mg Tab) 650 mg PO Q6 PRN PRN Reason: fever Last Admin: 08/25/18 23:39 Dose: 650 mg Enoxaparin Sodium (Lovenox) 40 mg SC DAILY [facility] Last Admin: 08/26/18 09:45 Dose: 40 mg Trimethoprim/Sulfamethoxazole (160 mg/ Dextrose) 250 mls @ 250 mls/hr IVPB Q8H [facility]; Protocol Last Admin: 08/26/18 09:44 Dose: 250 mls/hr Ibuprofen (Motrin Tab) 600 mg PO Q8H PRN PRN Reason: Fever >100.4 F Last Admin: 08/26/18 09:45 Dose: 600 mg Lactobacillus Acidophilus (Lactobacillus) 1 cap PO BID [facility] Last Admin: 08/26/18 09:45 Dose: 1 cap Pantoprazole Sodium (Protonix Ec Tab) 40 mg PO DAILY [facility] Last Admin: 08/26/18 09:45 Dose: 40 mg Potassium Chloride (K-Dur 20 Meq Er Tab) 40 meq PO BRK [facility] Last Admin: 08/26/18 08:08 Dose: 40 meq - Labs Labs: 08/26/18 06:30 08/26/18 06:30
--- NOTE | 2018-08-26 18:47 | CP.PCM.PN ---
Subjective - Date & Time of Evaluation Date of Evaluation: 08/26/18 Time of Evaluation: 09:30 - Subjective Subjective: clinically same Objective - Vital Signs/Intake and Output Vital Signs (last 24 hours): Temp Pulse Resp BP Pulse Ox 97.4 F L 99 H 20 119/74 97 08/26/18 16:07 08/26/18 16:07 08/26/18 16:07 08/26/18 16:07 08/26/18 16:07 Intake and Output: 08/26/18 08/26/18 06:59 18:59 Intake Total 1000 550 Balance 1000 550 - Medications Medications: Current Medications Acetaminophen (Tylenol 325mg Tab) 650 mg PO Q6 PRN PRN Reason: fever Last Admin: 08/25/18 23:39 Dose: 650 mg Enoxaparin Sodium (Lovenox) 40 mg SC DAILY [facility] Last Admin: 08/26/18 09:45 Dose: 40 mg Trimethoprim/Sulfamethoxazole (160 mg/ Dextrose) 250 mls @ 250 mls/hr IVPB Q8H [facility]; Protocol Last Admin: 08/26/18 09:44 Dose: 250 mls/hr Ibuprofen (Motrin Tab) 600 mg PO Q8H PRN PRN Reason: Fever >100.4 F Last Admin: 08/26/18 09:45 Dose: 600 mg Lactobacillus Acidophilus (Lactobacillus) 1 cap PO BID [facility] Last Admin: 08/26/18 09:45 Dose: 1 cap Pantoprazole Sodium (Protonix Ec Tab) 40 mg PO DAILY [facility] Last Admin: 08/26/18 09:45 Dose: 40 mg Potassium Chloride (K-Dur 20 Meq Er Tab) 40 meq PO BRK [facility] Last Admin: 08/26/18 08:08 Dose: 40 meq - Labs Labs: 08/26/18 06:30 08/26/18 06:30 - Constitutional Appears: Well - Head Exam Head Exam: ATRAUMATIC, NORMAL INSPECTION, NORMOCEPHALIC - Eye Exam Eye Exam: EOMI, Normal appearance, PERRL Pupil Exam: NORMAL ACCOMODATION, PERRL - ENT Exam ENT Exam: Mucous Membranes Moist, Normal Exam - Neck Exam Neck Exam: Full ROM, Normal Inspection. absent: Lymphadenopathy - Respiratory Exam Respiratory Exam: Decreased Breath Sounds - Cardiovascular Exam Cardiovascular Exam: REGULAR RHYTHM, +S1, +S2 - GI/Abdominal Exam GI & Abdominal Exam: Soft, Diminished Bowel Sounds - Rectal Exam Rectal Exam: Deferred
--- NOTE | 2018-08-27 00:29 | PN ---
DATE: 08/26/2018 INFECTIOUS DISEASE FOLLOWUP SUBJECTIVE: The patient still had temps of 101.4 yesterday, now he is 97.4, today 99. He did say he had many BMs yesterday and also today. He vomited early in the morning, otherwise he is feeling better. He is trying to drink liquids and is on IV fluids but still complains of diarrhea. PHYSICAL EXAMINATION: VITAL SIGNS: T-max is 97.4 right now, but this morning was 101.4, heart rate of 99, blood pressure 119/74, respirations are 20. HEENT: Head is atraumatic, normocephalic. Tongue is kind of moist. NECK: Supple. LUNGS: Clear. HEART: S1, S2, is regular. ABDOMEN: Soft, no epigastric tenderness present. Bowel sounds are present. EXTREMITIES: Have no edema, clubbing or cyanosis. LABORATORY DATA: White count is 5.7 today, hemoglobin 11.7, hematocrit 35, platelet count is 158, BUN is 3, creatinine 0.7, AST is 136, ALT is 138. His culture from yesterday is negative, 24 hours, two sets. Stool culture is negative from yesterday. IMPRESSION AND PLAN: So, at this time I will cut down the antibiotics to Bactrim and leave him on Bactrim for now and follow. If his symptoms can improve further, he will at least need total 2 weeks of treatment. He started the treatment on 08/21/2018 and today is the 6th day and tomorrow will be the 7th day. We will see if his symptoms are improved, and we will find out from the case worker if he can get home IV antibiotics, but at this time, he is to continue Bactrim. Let us hope he has negative fever for 24 hours, and he does not have diarrhea and no electrolyte imbalance. Christi Fragoso MD
[2018-08-27] MEDS: Sulfamethoxazole/Trimethoprim 160 MG in Dextrose 5% In Water 250 ML IVPB SCH ×3 (01:42→18:56)
[2018-08-27] MEDS: Potassium Chloride 20 mEq ER Tab PO SCH (08:35)
--- NOTE | 2018-08-27 08:37 | CP.PCM.CON ---
<Connor Araya - Last Filed: 08/27/18 09:16> History of Present Illness - History of Present Illness History of Present Illness: PGY6 GI Fellow Consult Note Patient is a 28yo male with PMHx significant for nephrolithiasis and prior episode of jaundice while living in [place] who presented to the ED with fevers and generalized malaise. The aptient was in [place] from the end of July to the end of August. Three days after returning to the [facility], he developed high fevers (~102F) and saw his PCP. Extensive work up was performed and patient was believed to have Dengue Fever (outpaitnet IgG was elevated) and he was told to rest and remain hydrated. Symptoms did resolve after approximately 7-10 days. He felt well for about one week when he again developed fevers, chills and generalized malaise. Given the persistence of illness, he presented to the ED where blood cultures were drawn but ultimately he was cleared for dishcarge. Cultures grew Salmonella in both bottles and patient was notified to return to the hospital for therapy. Since admission, he has been treated with broad spectrum antibiotics which have been deescalated to Bactrim monotherapy. Repeat cultures are now negative and echocardiogram to look for vegetations was unremarkable. LFTs were noted to be elevated in a mixed pattern and CT abdomen/pelvis does show enlarged lymph nodes along with hepatosplenomegaly. Patient denies history of chronic liver disease. He notes loose watery stool which has improved overall and also notes nausea and vomiting, mostly in the machine stamper, though this is improving. He denies any sick contacts, rashes, hematochezia, hematemesis, weight loss. Admits he may have drank unsafe water during his time in [place]. 12 system ROS performed and negative except where stated PMHx: See HPI PSHx: Denies prior surgical history FHx: Discussed with patient and denies any significant family history Social: Rare EtOH use; denies tobacco or illicit drug use Endo: No prior EGD/Colonoscopy Past Patient History - Infectious Disease Hx of Infectious Diseases: None - Past Medical History & Family History Past Medical History?: Yes - Past Social History Smoking Status: Never Smoked - CARDIAC Hx Cardiac Disorders: No - PULMONARY Hx Respiratory Disorders: No - NEUROLOGICAL Hx Neurological Disorder: No - HEENT Hx HEENT Problems: No - RENAL Hx Chronic Kidney Disease: No - ENDOCRINE/METABOLIC Hx Endocrine Disorders: No - HEMATOLOGICAL/ONCOLOGICAL Hx Blood Disorders: Yes Other/Comment: jaundice 2010 - INTEGUMENTARY Hx Dermatological Problems: No - MUSCULOSKELETAL/RHEUMATOLOGICAL Hx Musculoskeletal Disorders: No Hx Falls: No - GASTROINTESTINAL Hx Gastrointestinal Disorders: No - GENITOURINARY/GYNECOLOGICAL Hx Genitourinary Disorders: No - PSYCHIATRIC Hx Psychophysiologic Disorder: No Hx Substance Use: No - SURGICAL HISTORY Hx Surgeries: No - ANESTHESIA Hx Anesthesia: No Hx Anesthesia Reactions: No Meds Allergies/Adverse Reactions: Allergies Allergy/AdvReac Type Severity Reaction Status Date / Time No Known Allergies Allergy Verified 08/21/18 21:45 - Medications Medications: Current Medications Acetaminophen (Tylenol 325mg Tab) 650 mg PO Q6 PRN PRN Reason: fever Last Admin: 08/26/18 19:55 Dose: 650 mg Enoxaparin Sodium (Lovenox) 40 mg SC DAILY [facility] Last Admin: 08/26/18 09:45 Dose: 40 mg Trimethoprim/Sulfamethoxazole (160 mg/ Dextrose) 250 mls @ 250 mls/hr IVPB Q8H [facility]; Protocol Last Admin: 08/27/18 01:42 Dose: 250 mls/hr Ibuprofen (Motrin Tab) 600 mg PO Q8H PRN PRN Reason: Fever >100.4 F Last Admin: 08/26/18 09:45 Dose: 600 mg Lactobacillus Acidophilus (Lactobacillus) 1 cap PO BID [facility] Last Admin: 08/26/18 19:12 Dose: 1 cap Pantoprazole Sodium (Protonix Ec Tab) 40 mg PO DAILY [facility] Last Admin: 08/26/18 09:45 Dose: 40 mg Potassium Chloride (K-Dur 20 Meq Er Tab) 40 meq PO BRK [facility] Last Admin: 08/26/18 08:08 Dose: 40 meq Physical Exam - Constitutional Appears: Non-toxic, No Acute Distress - Eye Exam Eye Exam: EOMI, PERRL - ENT Exam ENT Exam: Mucous Membranes Moist - Respiratory Exam Respiratory Exam: Clear to Auscultation Bilateral. absent: Rales, Rhonchi, Wheezes - Cardiovascular Exam Cardiovascular Exam: RRR, +S1, +S2 - GI/Abdominal Exam GI & Abdominal Exam: Normal Bowel Sounds, Soft. absent: Distended, Firm, Guarding, Hernia, Mass, Organomegaly, Rigid, Tenderness - Extremities Exam Extremities exam: Positive for: normal inspection. Negative for: pedal edema - Neurological Exam Neurological exam: Alert, Oriented x3 - Psychiatric Exam Psychiatric exam: Normal Affect, Normal Mood - Skin Skin Exam: Dry, Warm Results - Vital Signs Recent Vital Signs: Last Vital Signs Temp 100.4 F H 08/27/18 07:32 Pulse 110 H 08/27/18 07:32 Resp 20 08/27/18 07:32 BP 107/62 08/27/18 07:32 Pulse Ox 98 08/27/18 07:32 - Labs Result Diagrams: 08/27/18 08:56 08/26/18 06:30 Labs: Laboratory Results - last 24 hr 08/24/18 06:28 HIV 1&2 Ag/Ab, 4th Gen Nonreactive Assessment & Plan - Assessment and Plan (Free Text) Assessment: Patient is a 28yo male with PMHx significant for nephrolithiasis and prior episode of jaundice while living in [place] who presented to the ED with fevers and generalized malaise -Salmonella bacteremia -Abnormal LFTs, mixed picture -Nausea/vomiting -Anemia Plan: -Recommend repeat testing for viral hepatitis, including Hepatitis E Ab IgM; acute Hepatitis A can have relapsing/remitting course -Check CBC, CMP, direct bilirubin -Check LDH/reticulocyte count and haptoglobin given elevated bili/anemia -R/O Malarial infection -Dengue IgG noted - may have prior or recent exposure -On therapy for Salmonella bacteremia with Bactrim - repeat culture negative -CT imaging noted -Pantoprazole/Zofran ordered -Diet changed to lactose restricted -Stool cultures noted; diarrhea improving - Date & Time Date: 08/27/18 Time: 07:10 <Jay Wells - Last Filed: 08/27/18 10:49> Meds - Medications Medications: Current Medications Acetaminophen (Tylenol 325mg Tab) 650 mg PO Q6 PRN PRN Reason: fever Last Admin: 08/26/18 19:55 Dose: 650 mg Enoxaparin Sodium (Lovenox) 40 mg SC DAILY [facility] Last Admin: 08/27/18 09:59 Dose: 40 mg Trimethoprim/Sulfamethoxazole (160 mg/ Dextrose) 250 mls @ 250 mls/hr IVPB Q8H [facility]; Protocol Last Admin: 08/27/18 09:59 Dose: 250 mls/hr Ibuprofen (Motrin Tab) 600 mg PO Q8H PRN PRN Reason: Fever >100.4 F Last Admin: 08/27/18 08:35 Dose: 600 mg Lactobacillus Acidophilus (Lactobacillus) 1 cap PO BID [facility] Last Admin: 08/27/18 09:59 Dose: 1 cap Pantoprazole Sodium (Protonix Ec Tab) 40 mg PO DAILY [facility] Last Admin: 08/27/18 09:59 Dose: 40 mg Potassium Chloride (K-Dur 20 Meq Er Tab) 40 meq PO BRK [facility] Last Admin: 08/27/18 08:35 Dose: 40 meq Results - Vital Signs Recent Vital Signs: Last Vital Signs Temp 100.4 F H 08/27/18 07:32 Pulse 110 H 08/27/18 07:32 Resp 20 08/27/18 07:32 BP 107/62 08/27/18 07:32 Pulse Ox 98 08/27/18 07:32 - Labs Result Diagrams: 08/27/18 08:56 08/27/18 08:36 Labs: Laboratory Results - last 24 hr 08/24/18 08/27/18 08/27/18 06:28 08:36 08:36 WBC RBC Hgb Hct MCV MCH MCHC RDW Plt Count MPV Neut % (Auto) Lymph % (Auto) [place] % (Auto) Eos % (Auto) Baso % (Auto) Neut # (Auto) Lymph # (Auto) [place] # (Auto) Eos # (Auto) Baso # (Auto) Retic Count Haptoglobin Sodium 133 Potassium 4.3 Chloride 100 Carbon Dioxide 26 Anion Gap 12 BUN 2 L Creatinine 0.8 Est GFR ( Amer) > 60 Est GFR (Non-Af Amer) > 60 Random Glucose 110 Calcium 8.8 Total Bilirubin 1.8 H Direct Bilirubin 0.2 AST 114 H ALT 124 H Alkaline Phosphatase 141 H Lactate Dehydrogenase 2124 H Total Protein 7.5 Albumin 4.1 Globulin 3.5 Albumin/Globulin Ratio 1.2 Hepatitis A IgM Ab Negative Hep Bs Antigen Negative Hep B Core IgM Ab Negative Hepatitis C Antibody Negative HIV 1&2 Ag/Ab, 4th Gen Nonreactive 08/27/18 08/27/18 08/27/18 08:36 08:36 08:56 WBC 7.4 RBC 4.06 L Hgb 11.7 L Hct 35.9 MCV 88.2 MCH 28.8 MCHC 32.6 L RDW 13.4 Plt Count 218 MPV 9.2 Neut % (Auto) 54.0 Lymph % (Auto) 34.1 [place] % (Auto) 10.8 H Eos % (Auto) 0.7 Baso % (Auto) 0.4 Neut # (Auto) 4.0 Lymph # (Auto) 2.5 [place] # (Auto) 0.8 Eos # (Auto) 0.0 Baso # (Auto) 0.0 Retic Count 1.7 H Haptoglobin < 20.0 L Sodium Potassium Chloride Carbon Dioxide Anion Gap BUN Creatinine Est GFR ( Amer) Est GFR (Non-Af Amer) Random Glucose Calcium Total Bilirubin Direct Bilirubin AST ALT Alkaline Phosphatase Lactate Dehydrogenase Total Protein Albumin Globulin Albumin/Globulin Ratio Hepatitis A IgM Ab Hep Bs Antigen Hep B Core IgM Ab Hepatitis C Antibody HIV 1&2 Ag/Ab, 4th Gen Attending/Attestation - Attestation I have personally seen and examined this patient.: Yes I have fully participated in the care of the patient.: Yes I have reviewed all pertinent clinical information: Yes Notes (Text): 08/27/18 10:43 I have seen and examined patient with GI fellow. Agree with above documentation with the following additions. In brief, this is a 28 year old male without significant past medical history who presents to hospital with complaint of progressive fever and malaise for the past one week. His symptoms started after returning from trip to [facility] where he was for one month. Initial outpatient workup revealed possible Dengue fever, though he was also found to be bacteremic and sent to hospital for further workup. He notes loose bowel movements along with nausea and non-bloody emesis predominantly in the morning. He also endorses generalized abdominal discomfort but denies weight loss, rectal bleeding, sick contacts, or recent antibiotic use. He also does report eating eggs upon return to the [place] prior to symptom onset. No prior endoscopic evaluation. Abdominal pain Nausea, vomiting, diarrhea Fever, salmonella bacteremia Transaminitis Anemia - hemolysis - Diet as tolerated - Continue with antibiotic therapy - Follow up ID recommendations - Viral hepatitis negative, continue to monitor LFTs - Hemolytic anemia present which can be seen during acute infectious process, will continue to monitor - Anti-emetic therapy PRN - Will continue to monitor patient clinical course
[2018-08-27 09:00] LABS: BASO % 0.4 % (0.0-2.0); EOS % 0.7 % (0.0-4.0); HEMOGLOBIN 11.7 g/dL (12.0-18.0); LYMPH # 2.5 K/uL (1.0-4.3); LYMPH % 34.1 % (20.0-40.0); MEAN CELL VOLUME 88.2 fL (80.0-94.0); MEAN CORPUSCULAR HEMOGLOBIN 28.8 pg (27.0-31.0); MEAN CORPUSCULAR HGB CONC 32.6 g/dL (33.0-37.0); MEAN PLATELET VOLUME 9.2 fL (7.2-11.7); MONO # 0.8 K/uL (0.0-0.8); MONO % 10.8 % (0.0-10.0); NRBC % 0.1 % (0.0-2.0); RBC 4.06 Mil/uL (4.40-5.90); RED CELL DISTRIBUTION WIDTH 13.4 % (11.5-14.5); WHITE BLOOD COUNT 7.4 K/uL (4.8-10.8)
[2018-08-27 09:26] LABS: ALB/GLOB RATIO 1.2 (1.0-2.1); ALBUMIN 4.1 g/dL (3.5-5.0); ALT/SGPT 124 U/L (21-72); AST/SGOT 114 U/L (17-59); BLOOD UREA NITROGEN 2 mg/dL (9-20); CALCIUM 8.8 mg/dl (8.6-10.4); GFR NON-AFRICAN AMERICAN > 60
[2018-08-27 09:29] LABS: HEPATITIS B SURFACE AG Negative (NEGATIVE)
[2018-08-27 09:35] LABS: HEPATITIS A IGM NEGATIVE (NEGATIVE); HEPATITIS B CORE AB NEGATIVE (NEGATIVE)
[2018-08-27 09:47] LABS: HEPATITIS C ANTIBODY NEGATIVE (NEGATIVE)
[2018-08-27] MEDS: Pantoprazole 40 mg EC Tab PO SCH (09:59)
[2018-08-27] MEDS: Lactobacillus Acidophilus 500 MU Cap PO SCH ×2 (09:59→18:01)
[2018-08-27] MEDS: Enoxaparin 40 mg Syringe SC SCH (09:59)
[2018-08-27 10:26] LABS: BILIRUBIN,DIRECT 0.2 mg/dL (0.0-0.4)
[2018-08-27 13:22] LABS: INTRACELLULAR PARASITE NEGATIVE (NEGATIVE)
[2018-08-27] MEDS: Dextrose 5%/0.45% NS 1,000 ML IV SCH (14:18)
--- NOTE | 2018-08-27 14:39 | CP.PCM.PN ---
Subjective - Date & Time of Evaluation Date of Evaluation: 08/27/18 Time of Evaluation: 09:30 - Subjective Subjective: clinically same Objective - Vital Signs/Intake and Output Vital Signs (last 24 hours): Temp Pulse Resp BP Pulse Ox 98.2 F 84 20 107/67 96 08/27/18 12:54 08/27/18 12:54 08/27/18 12:54 08/27/18 12:54 08/27/18 12:54 - Medications Medications: Current Medications Acetaminophen (Tylenol 325mg Tab) 650 mg PO Q6 PRN PRN Reason: fever Last Admin: 08/26/18 19:55 Dose: 650 mg Enoxaparin Sodium (Lovenox) 40 mg SC DAILY [facility] Last Admin: 08/27/18 09:59 Dose: 40 mg Folic Acid (Folic Acid) 1 mg PO DAILY [facility] Stop: 09/09/18 10:01 Last Admin: 08/27/18 14:18 Dose: 1 mg Trimethoprim/Sulfamethoxazole (160 mg/ Dextrose) 250 mls @ 250 mls/hr IVPB Q8H [facility]; Protocol Last Admin: 08/27/18 09:59 Dose: 250 mls/hr Dextrose/Sodium Chloride (Dextrose 5%/0.45% Ns 1000 Ml) 1,000 mls @ 100 mls/hr IV .Q10H [facility] Last Admin: 08/27/18 14:18 Dose: 100 mls/hr Ibuprofen (Motrin Tab) 600 mg PO Q8H PRN PRN Reason: Fever >100.4 F Last Admin: 08/27/18 08:35 Dose: 600 mg Lactobacillus Acidophilus (Lactobacillus) 1 cap PO BID [facility] Last Admin: 08/27/18 09:59 Dose: 1 cap Pantoprazole Sodium (Protonix Ec Tab) 40 mg PO DAILY [facility] Last Admin: 08/27/18 09:59 Dose: 40 mg - Labs Labs: 08/27/18 08:56 08/27/18 08:36 - Constitutional Appears: Well - Head Exam Head Exam: ATRAUMATIC, NORMAL INSPECTION, NORMOCEPHALIC - Eye Exam Eye Exam: EOMI, Normal appearance, PERRL Pupil Exam: NORMAL ACCOMODATION, PERRL - ENT Exam ENT Exam: Mucous Membranes Moist, Normal Exam - Neck Exam Neck Exam: Full ROM, Normal Inspection. absent: Lymphadenopathy - Respiratory Exam Respiratory Exam: Decreased Breath Sounds - Cardiovascular Exam Cardiovascular Exam: REGULAR RHYTHM, +S1, +S2 - GI/Abdominal Exam GI & Abdominal Exam: Soft, Diminished Bowel Sounds - Rectal Exam Rectal Exam: Deferred
--- NOTE | 2018-08-27 15:23 | CP.PCM.PN ---
Subjective - Date & Time of Evaluation Date of Evaluation: 08/27/18 Time of Evaluation: 14:00 - Subjective Subjective: dictated Objective - Vital Signs/Intake and Output Vital Signs (last 24 hours): Temp Pulse Resp BP Pulse Ox 98.2 F 84 20 107/67 96 08/27/18 12:54 08/27/18 12:54 08/27/18 12:54 08/27/18 12:54 08/27/18 12:54 - Medications Medications: Current Medications Acetaminophen (Tylenol 325mg Tab) 650 mg PO Q6 PRN PRN Reason: fever Last Admin: 08/26/18 19:55 Dose: 650 mg Enoxaparin Sodium (Lovenox) 40 mg SC DAILY [facility] Last Admin: 08/27/18 09:59 Dose: 40 mg Folic Acid (Folic Acid) 1 mg PO DAILY [facility] Stop: 09/09/18 10:01 Last Admin: 08/27/18 14:18 Dose: 1 mg Trimethoprim/Sulfamethoxazole (160 mg/ Dextrose) 250 mls @ 250 mls/hr IVPB Q8H [facility]; Protocol Last Admin: 08/27/18 09:59 Dose: 250 mls/hr Dextrose/Sodium Chloride (Dextrose 5%/0.45% Ns 1000 Ml) 1,000 mls @ 100 mls/hr IV .Q10H [facility] Last Admin: 08/27/18 14:18 Dose: 100 mls/hr Ibuprofen (Motrin Tab) 600 mg PO Q8H PRN PRN Reason: Fever >100.4 F Last Admin: 08/27/18 08:35 Dose: 600 mg Lactobacillus Acidophilus (Lactobacillus) 1 cap PO BID [facility] Last Admin: 08/27/18 09:59 Dose: 1 cap Pantoprazole Sodium (Protonix Ec Tab) 40 mg PO DAILY [facility] Last Admin: 08/27/18 09:59 Dose: 40 mg - Labs Labs: 08/27/18 08:56 08/27/18 08:36
--- NOTE | 2018-08-27 19:50 | PN ---
DATE: 08/27/2018 INFECTIOUS DISEASE FOLLOW UP SUBJECTIVE: The patient had a fever this morning, 100.4. He was also seen by GI. He had some vomiting last night, but today he says his diarrhea is better. He still has black stools, he says. PHYSICAL EXAMINATION: VITAL SIGNS: He is afebrile at the present time, he had a T-max of 100.4 this morning, heart rate of 110, blood pressure 107/67, respirations are 20. GENERAL: He is awake, alert. HEENT: Head is atraumatic, normocephalic. Tongue has kind of dry saliva, fluid. LUNGS: Clear. HEART: S1 and S2, regular. ABDOMEN: Soft, nontender. Bowel sounds are present, slightly hyper. EXTREMITIES: No edema. LABORATORY DATA: Labs are noted. Labs show white count of 7.4, hemoglobin 11.7, hematocrit 35.9, platelets count is 218. His bilirubin is 1.8. LFTs noted. LDH is 2124 is the high. He had lymph nodes, but they may be all related to his Salmonella infection at this time. HIV is negative. Hepatitis C is negative. Blood and the malaria smear is negative, infectious mono is negative. ASSESSMENT AND PLAN: So at this time, he is improving on Bactrim. He wants to get the shower and I would allow him to do that. We will discontinue potassium as that may be making him to vomit and continue the Bactrim we are giving every 8 hours. We will put him on folic acid for now and continue Lovenox. We will continue treatment and we will repeat the labs tomorrow. We will check his culture report, it is negative for 48 hours, so he is clearing it. We will follow and I want him to be totally afebrile and asymptomatic. His stool culture from 08/25/2018, it says no reportable result for this procedure, so I do not know whether they got the sample or not. We might again send the stool sample to make sure he is clearing it and we will follow. The patient has typhoid fever with salmonellosis and abnormal liver function tests that has been symptomatic with diarrhea and vomiting. At this time, he still remains with low-grade temperature. Christi Fragoso MD [facility] # [id number]
[2018-08-28] MEDS: Dextrose 5%/0.45% NS 1,000 ML IV SCH ×4 (00:31→21:11)
[2018-08-28] MEDS: Sulfamethoxazole/Trimethoprim 160 MG in Dextrose 5% In Water 250 ML IVPB SCH ×3 (02:30→18:15)
--- NOTE | 2018-08-28 07:18 | CP.PCM.PN ---
"Subjective - Date & Time of Evaluation Date of Evaluation: 08/28/18 Time of Evaluation: 13:34 - Subjective Subjective: Progress Note for Dr. Bartholomew. Patient is a 28 year old male with a PMHx significant for nephrolithiasis and prior episode of jaundice who presented to the E.D with fever and generalized malaise. Patient was originally discharged from the ED. His cultures grew Salmonella and patient was called to return to the hospital for treatment. Today, patient complained of fever overnight which resolved with tylenol administration. He complains of nausea but no vomiting. He states his bowel movement was normal today and denies any blood in the stool or melena. Patient also denies any chest pain, SOB, abdominal pain, or any urinary symptoms. He also complains of headache. Patient would like a report of his stay so his can share with his physician Uncle in [place]. PMHx: See HPI PSHx: Denies prior surgical history FHx: Discussed with patient and denies any significant family history Social: Rare EtOH use; denies tobacco or illicit drug use Allergies: NKDA Objective - Vital Signs/Intake and Output Vital Signs (last 24 hours): Temp Pulse Resp BP Pulse Ox 98.2 F 83 18 100/62 98 08/27/18 23:50 08/27/18 23:50 08/27/18 23:50 08/27/18 23:50 08/27/18 23:50 Intake and Output: 08/28/18 08/28/18 06:59 18:59 Intake Total 1250 Balance 1250 - Medications Medications: Current Medications Acetaminophen (Tylenol 325mg Tab) 650 mg PO Q6 PRN PRN Reason: fever Last Admin: 08/26/18 19:55 Dose: 650 mg Enoxaparin Sodium (Lovenox) 40 mg SC DAILY [facility] Last Admin: 08/27/18 09:59 Dose: 40 mg Folic Acid (Folic Acid) 1 mg PO DAILY [facility] Stop: 09/09/18 10:01 Last Admin: 08/27/18 14:18 Dose: 1 mg Trimethoprim/Sulfamethoxazole (160 mg/ Dextrose) 250 mls @ 250 mls/hr IVPB Q8H [facility]; Protocol Last Admin: 08/28/18 02:30 Dose: 250 mls/hr Dextrose/Sodium Chloride (Dextrose 5%/0.45% Ns 1000 Ml) 1,000 mls @ 100 mls/hr IV .Q10H [facility] Last Admin: 08/28/18 00:31 Dose: 100 mls/hr Ibuprofen (Motrin Tab) 600 mg PO Q8H PRN PRN Reason: Fever >100.4 F Last Admin: 08/27/18 19:38 Dose: 600 mg Lactobacillus Acidophilus (Lactobacillus) 1 cap PO BID [facility] Last Admin: 08/27/18 18:01 Dose: 1 cap Pantoprazole Sodium (Protonix Ec Tab) 40 mg PO DAILY [facility] Last Admin: 08/27/18 09:59 Dose: 40 mg - Labs Labs: 08/27/18 08:56 08/27/18 08:36 - Constitutional Appears: Well, Non-toxic, No Acute Distress - Head Exam Head Exam: ATRAUMATIC, NORMAL INSPECTION, NORMOCEPHALIC - Eye Exam Eye Exam: EOMI. absent: Scleral icterus - Neck Exam Neck Exam: Normal Inspection. absent: Lymphadenopathy (No Anterior/Posterior Cervical, Supraclavicular, or Auricular. ), Tenderness, Thyromegaly - Respiratory Exam Respiratory Exam: Clear to Ausculation Bilateral - Cardiovascular Exam Cardiovascular Exam: RRR, +S1, +S2. absent: Murmur - GI/Abdominal Exam GI & Abdominal Exam: Soft, Tenderness (Mild LUQ,LLQ), Normal Bowel Sounds Additional comments: Negative Boykin's Sign. - Extremities Exam Extremities Exam: Normal Capillary Refill, Normal Inspection - Neurological Exam Neurological Exam: Alert, Awake, Oriented x3 - Psychiatric Exam Psychiatric exam: Normal Affect, Normal Mood - Skin Skin Exam: Dry, Intact, Normal Color, Warm Assessment and Plan - Assessment and Plan (Free Text) Assessment: 28 year old male with a PMHx significant for nephrolithiasis and prior episode of jaundice who presented to the E.D with fever and generalized malaise. Patient was originally discharged from the ED. His cultures grew Salmonella and patient was called to return to the hospital for evaluation and treatment of typhoid fever/salmonella bacteremia. Plan: Salmonella Bacteremia No Leukocytosis, Febrile Overnight. Blood Cultures (08/21/18) - POSITIVE for Salmonella Group A Blood Cultures (08/25/18) - NEGATIVE x 3 days Negative Studies: HIV, Hepatitis Infectious mono, Blood parasite Smear. Mgmt: Bactrim IV Q8H (Started on 08/24/18) Ibuprofen 600 PO Q6H PRN for pain or fever Tylenol 650 PO Q6H PRN for pain (Use sparingly due to elevated liver enzymes) D5 in 1/2 NS @ 100mls/hr Typhoid Fever Stool Culture (08/25/18) - POSITIVE for Salmonella --- Will repeat to assess for resolution Febrile Tmax was 101.9 per patient. on Record it does not show fever overnight. Anemia (Resolved) Likely hemolytic Anemia 2/2 to infectious process Haptoglobin < 20 | Retic Count 1.7 (Retic Index 1.49) | Elevated LFT's (Improving) GI Consult (Dr. Wells), Recs Appreciated. Likely 2/2 to Typhoid Hepatitis Hepatitis panel - NEGATIVE Proph Lovenox 40 Daily Lactobacillus 1cap PO BID Patient discussed with Attending (Dr. Christian Bartholomew) Bishop Winkler, PGY-1"
[2018-08-28 08:35] LABS: BASO % 0.5 % (0.0-2.0); EOS # 0.1 K/uL (0.0-0.7); EOS % 1.1 % (0.0-4.0); HEMOGLOBIN 12.1 g/dL (12.0-18.0); LYMPH # 2.5 K/uL (1.0-4.3); LYMPH % 33.2 % (20.0-40.0); MEAN CORPUSCULAR HEMOGLOBIN 28.9 pg (27.0-31.0); MEAN CORPUSCULAR HGB CONC 32.9 g/dL (33.0-37.0); MEAN PLATELET VOLUME 9.1 fL (7.2-11.7); MONO # 0.7 K/uL (0.0-0.8); NEUT # 4.1 K/uL (1.8-7.0); NEUT % 55.2 % (50.0-75.0); NRBC % 0.1 % (0.0-2.0); RBC 4.17 Mil/uL (4.40-5.90); RED CELL DISTRIBUTION WIDTH 13.4 % (11.5-14.5); WHITE BLOOD COUNT 7.4 K/uL (4.8-10.8)
[2018-08-28 09:00] LABS: ALB/GLOB RATIO 1.2 (1.0-2.1); ALBUMIN 4.3 g/dL (3.5-5.0); ALT/SGPT 101 U/L (21-72); AST/SGOT 88 U/L (17-59); BLOOD UREA NITROGEN 3 mg/dL (9-20); CALCIUM 8.8 mg/dl (8.6-10.4); GFR NON-AFRICAN AMERICAN > 60
[2018-08-28] MEDS: Pantoprazole 40 mg EC Tab PO SCH (09:52)
[2018-08-28] MEDS: Lactobacillus Acidophilus 500 MU Cap PO SCH ×2 (09:53→18:15)
[2018-08-28] MEDS: Enoxaparin 40 mg Syringe SC SCH (09:53)
--- NOTE | 2018-08-28 12:16 | CP.PCM.PN ---
<Connor Araya - Last Filed: 08/28/18 12:14> Subjective - Date & Time of Evaluation Date of Evaluation: 08/28/18 Time of Evaluation: 08:10 - Subjective Subjective: PGY6 GI Fellow Progress Note Patient seen and examined bedside this morning. The patient states he again felt nauseated this morning but did not experience any vomiting. States stool is more formed at this time and had decreased frequency of stool in last 24 hours. Did not care for food served for breakfast and appetite relatively unchanged. 12 system ROS performed and negative except where stated Objective - Vital Signs/Intake and Output Vital Signs (last 24 hours): Temp Pulse Resp BP Pulse Ox 99.8 F H 107 H 20 106/63 98 08/28/18 07:58 08/28/18 07:58 08/28/18 07:58 08/28/18 07:58 08/28/18 07:58 Intake and Output: 08/28/18 08/28/18 06:59 18:59 Intake Total 1250 Balance 1250 - Medications Medications: Current Medications Acetaminophen (Tylenol 325mg Tab) 650 mg PO Q6 PRN PRN Reason: fever Last Admin: 08/28/18 09:57 Dose: 650 mg Enoxaparin Sodium (Lovenox) 40 mg SC DAILY [facility] Last Admin: 08/28/18 09:53 Dose: 40 mg Folic Acid (Folic Acid) 1 mg PO DAILY [facility] Stop: 09/09/18 10:01 Last Admin: 08/28/18 09:53 Dose: 1 mg Trimethoprim/Sulfamethoxazole (160 mg/ Dextrose) 250 mls @ 250 mls/hr IVPB Q8H [facility]; Protocol Last Admin: 08/28/18 09:53 Dose: 250 mls/hr Dextrose/Sodium Chloride (Dextrose 5%/0.45% Ns 1000 Ml) 1,000 mls @ 100 mls/hr IV .Q10H [facility] Last Admin: 08/28/18 11:20 Dose: Not Given Ibuprofen (Motrin Tab) 600 mg PO Q8H PRN PRN Reason: Fever >100.4 F Last Admin: 08/27/18 19:38 Dose: 600 mg Lactobacillus Acidophilus (Lactobacillus) 1 cap PO BID [facility] Last Admin: 08/28/18 09:53 Dose: 1 cap Pantoprazole Sodium (Protonix Ec Tab) 40 mg PO DAILY [facility] Last Admin: 08/28/18 09:52 Dose: 40 mg - Labs Labs: 08/28/18 08:11 08/28/18 08:11 - Constitutional Appears: Non-toxic, No Acute Distress - Eye Exam Eye Exam: EOMI, PERRL - ENT Exam ENT Exam: Mucous Membranes Moist - Respiratory Exam Respiratory Exam: Clear to Ausculation Bilateral. absent: Rales, Rhonchi, Wheezes - Cardiovascular Exam Cardiovascular Exam: RRR, +S1, +S2 - GI/Abdominal Exam GI & Abdominal Exam: Soft, Normal Bowel Sounds. absent: Distended, Firm, Guarding, Rigid, Tenderness, Organomegaly - Extremities Exam Extremities Exam: Normal Inspection. absent: Pedal Edema - Neurological Exam Neurological Exam: Alert, Awake, Oriented x3 - Psychiatric Exam Psychiatric exam: Normal Affect, Normal Mood - Skin Skin Exam: Dry, Warm Assessment and Plan - Assessment and Plan (Free Text) Assessment: Patient is a 28yo male with PMHx significant for nephrolithiasis and prior episode of jaundice while living in [facility] who presented to the ED with fevers and generalized malaise -Salmonella bacteremia - Typhoid fever -Abnormal LFTs, mixed picture - suspect 2/2 above - Typhoid hepatitis -Nausea/vomiting -Hemolytic anemia Plan: -Lab work performed yesterday consistent with hemolytic anemia (elevated retic count/LDH, indirect hyperbilirubinemia and low haptoglobin), suspect 2/2 ongoing infectious process -Typoid hepatitis likely cause of transaminase elevated though DILI -Viral hepatitis negative -Ongoing supportive care and tx with Bactrim per ID -Peripheral smear without evidence for malaria -Dengue IgG noted - may have prior or recent exposure -Pantoprazole/Zofran PRN -Diet changed to lactose restricted -Stool cultures noted; diarrhea improving <Jay Wells - Last Filed: 08/28/18 14:40> Objective - Vital Signs/Intake and Output Vital Signs (last 24 hours): Temp Pulse Resp BP Pulse Ox 99.8 F H 107 H 20 106/63 98 08/28/18 07:58 08/28/18 07:58 08/28/18 07:58 08/28/18 07:58 08/28/18 07:58 Intake and Output: 08/28/18 08/28/18 06:59 18:59 Intake Total 1250 Balance 1250 - Medications Medications: Current Medications Acetaminophen (Tylenol 325mg Tab) 650 mg PO Q6 PRN PRN Reason: fever Last Admin: 08/28/18 09:57 Dose: 650 mg Enoxaparin Sodium (Lovenox) 40 mg SC DAILY [facility] Last Admin: 08/28/18 09:53 Dose: 40 mg Folic Acid (Folic Acid) 1 mg PO DAILY [facility] Stop: 09/09/18 10:01 Last Admin: 08/28/18 09:53 Dose: 1 mg Trimethoprim/Sulfamethoxazole (160 mg/ Dextrose) 250 mls @ 250 mls/hr IVPB Q8H [facility]; Protocol Last Admin: 08/28/18 09:53 Dose: 250 mls/hr Dextrose/Sodium Chloride (Dextrose 5%/0.45% Ns 1000 Ml) 1,000 mls @ 100 mls/hr IV .Q10H [facility] Last Admin: 08/28/18 12:20 Dose: 100 mls/hr Ibuprofen (Motrin Tab) 600 mg PO Q8H PRN PRN Reason: Fever >100.4 F Last Admin: 08/27/18 19:38 Dose: 600 mg Lactobacillus Acidophilus (Lactobacillus) 1 cap PO BID [facility] Last Admin: 08/28/18 09:53 Dose: 1 cap Pantoprazole Sodium (Protonix Ec Tab) 40 mg PO DAILY [facility] Last Admin: 08/28/18 09:52 Dose: 40 mg - Labs Labs: 08/28/18 08:11 08/28/18 08:11 Attending/Attestation - Attestation I have personally seen and examined this patient.: Yes I have fully participated in the care of the patient.: Yes I have reviewed all pertinent clinical information, including history, physical exam and plan: Yes Notes (Text): 08/28/18 14:38 I have seen and examined patient with GI fellow. No acute events overnight, persistent low grade temperature noted. He denies abdominal pain, nausea, vomiting. His bowel movements are becoming more formed in consistency. Tolerating PO diet without difficulty. Salmonella bacteremia, typhoid fever Hemolytic anemia Transaminitis - Diet as tolerated - LFTs trending down, continue to monitor - Continue with antibiotic therapy as per ID - Will continue to monitor patient clinical course
--- NOTE | 2018-08-28 13:43 | CP.PCM.PN ---
Subjective - Date & Time of Evaluation Date of Evaluation: 08/28/18 Time of Evaluation: 13:40 - Subjective Subjective: dictated Objective - Vital Signs/Intake and Output Vital Signs (last 24 hours): Temp Pulse Resp BP Pulse Ox 99.8 F H 107 H 20 106/63 98 08/28/18 07:58 08/28/18 07:58 08/28/18 07:58 08/28/18 07:58 08/28/18 07:58 Intake and Output: 08/28/18 08/28/18 06:59 18:59 Intake Total 1250 Balance 1250 - Medications Medications: Current Medications Acetaminophen (Tylenol 325mg Tab) 650 mg PO Q6 PRN PRN Reason: fever Last Admin: 08/28/18 09:57 Dose: 650 mg Enoxaparin Sodium (Lovenox) 40 mg SC DAILY [facility] Last Admin: 08/28/18 09:53 Dose: 40 mg Folic Acid (Folic Acid) 1 mg PO DAILY [facility] Stop: 09/09/18 10:01 Last Admin: 08/28/18 09:53 Dose: 1 mg Trimethoprim/Sulfamethoxazole (160 mg/ Dextrose) 250 mls @ 250 mls/hr IVPB Q8H [facility]; Protocol Last Admin: 08/28/18 09:53 Dose: 250 mls/hr Dextrose/Sodium Chloride (Dextrose 5%/0.45% Ns 1000 Ml) 1,000 mls @ 100 mls/hr IV .Q10H [facility] Last Admin: 08/28/18 12:20 Dose: 100 mls/hr Ibuprofen (Motrin Tab) 600 mg PO Q8H PRN PRN Reason: Fever >100.4 F Last Admin: 08/27/18 19:38 Dose: 600 mg Lactobacillus Acidophilus (Lactobacillus) 1 cap PO BID [facility] Last Admin: 08/28/18 09:53 Dose: 1 cap Pantoprazole Sodium (Protonix Ec Tab) 40 mg PO DAILY [facility] Last Admin: 08/28/18 09:52 Dose: 40 mg - Labs Labs: 08/28/18 08:11 08/28/18 08:11
--- NOTE | 2018-08-28 17:05 | PN ---
DATE: 08/28/2018 INFECTIOUS DISEASE FOLLOWUP NOTE SUBJECTIVE: The patient still says he had four to five BMs yesterday and last night he said he had a fever of 100.9 and he denies any abdominal pain. He says this morning he was about to vomit, but did not vomit. His T-max now this morning was 99.8. He denies any abdominal pain. He does feel a little better, however, he has been having these fevers again. He is on Bactrim and he is on every 8 hours at this time. PHYSICAL EXAMINATION: VITAL SIGNS: Pulse is 107, blood pressure 106/67, respirations are 20. HEENT: Head is atraumatic, normocephalic. Tongue is moist. NECK: Supple. LUNGS: Clear. HEART: S1, S2, is regular. No murmurs present. ABDOMEN: Soft, nontender. No guarding, no rigidity present. EXTREMITIES: Have no edema. His IV site in the left arm is unremarkable. There is no induration, no phlebitis. LABORATORY DATA: White count is 7.4, hemoglobin 12.1, hematocrit 36.7, platelet count is 252, BUN is 3, and creatinine 0.7. His GI physicians discussed the case with me and LFTs are elevated still from part of the typhoid fever. We will continue with Bactrim if he spikes again and may be we will make Bactrim p.o. and add meropenem. We will see tonight as he is still having fevers. We will follow. IMPRESSION: He has salmonellosis, bacteremia. Still his stool culture from 08/25/2018 was positive and he had resistant Salmonella, which is intermediate to Cipro but sensitive to Bactrim. He also received meropenem and Bactrim and the repeat cultures from 08/25/2018 are negative at this time. We will get stool culture again and we will follow with the team. Christi Fragoso MD
--- NOTE | 2018-08-28 19:35 | CP.PCM.PN ---
Subjective - Date & Time of Evaluation Date of Evaluation: 08/28/18 Time of Evaluation: 10:00 - Subjective Subjective: clinically same Objective - Vital Signs/Intake and Output Vital Signs (last 24 hours): Temp Pulse Resp BP Pulse Ox 98.6 F 88 20 118/72 99 08/28/18 15:00 08/28/18 15:00 08/28/18 15:00 08/28/18 15:00 08/28/18 15:00 - Medications Medications: Current Medications Acetaminophen (Tylenol 325mg Tab) 650 mg PO Q6 PRN PRN Reason: fever Enoxaparin Sodium (Lovenox) 40 mg SC DAILY [facility] Last Admin: 08/28/18 09:53 Dose: 40 mg Folic Acid (Folic Acid) 1 mg PO DAILY [facility] Stop: 09/09/18 10:01 Last Admin: 08/28/18 09:53 Dose: 1 mg Trimethoprim/Sulfamethoxazole (160 mg/ Dextrose) 250 mls @ 250 mls/hr IVPB Q8H [facility]; Protocol Last Admin: 08/28/18 18:15 Dose: 250 mls/hr Dextrose/Sodium Chloride (Dextrose 5%/0.45% Ns 1000 Ml) 1,000 mls @ 100 mls/hr IV .Q10H [facility] Last Admin: 08/28/18 12:20 Dose: 100 mls/hr Ibuprofen (Motrin Tab) 600 mg PO Q8H PRN PRN Reason: Fever >100.4 F or Pain (1-10) Lactobacillus Acidophilus (Lactobacillus) 1 cap PO BID [facility] Last Admin: 08/28/18 18:15 Dose: 1 cap Pantoprazole Sodium (Protonix Ec Tab) 40 mg PO DAILY [facility] Last Admin: 08/28/18 09:52 Dose: 40 mg - Labs Labs: 08/28/18 08:11 08/28/18 08:11 - Constitutional Appears: Well - Head Exam Head Exam: ATRAUMATIC, NORMAL INSPECTION, NORMOCEPHALIC - Eye Exam Eye Exam: EOMI, Normal appearance, PERRL Pupil Exam: NORMAL ACCOMODATION, PERRL - ENT Exam ENT Exam: Mucous Membranes Moist, Normal Exam - Neck Exam Neck Exam: Full ROM, Normal Inspection. absent: Lymphadenopathy - Respiratory Exam Respiratory Exam: Decreased Breath Sounds - Cardiovascular Exam Cardiovascular Exam: REGULAR RHYTHM, +S1 - GI/Abdominal Exam GI & Abdominal Exam: Soft, Diminished Bowel Sounds - Rectal Exam Rectal Exam: Deferred
[2018-08-29] MEDS: Meropenem 1 GM in Sodium Chloride 0.9% 100 ML IVPB SCH ×3 (01:34→16:32)
[2018-08-29] MEDS: Sulfamethoxazole/Trimethoprim 160 MG in Dextrose 5% In Water 250 ML IVPB SCH ×3 (02:51→18:00)
[2018-08-29 07:44] LABS: BASO % 0.6 % (0.0-2.0); EOS # 0.1 K/uL (0.0-0.7); EOS % 1.2 % (0.0-4.0); LYMPH # 2.9 K/uL (1.0-4.3); LYMPH % 39.3 % (20.0-40.0); MEAN CELL VOLUME 88.6 fL (80.0-94.0); MEAN CORPUSCULAR HEMOGLOBIN 28.6 pg (27.0-31.0); MEAN CORPUSCULAR HGB CONC 32.2 g/dL (33.0-37.0); MEAN PLATELET VOLUME 8.8 fL (7.2-11.7); MONO % 13.8 % (0.0-10.0); NEUT # 3.3 K/uL (1.8-7.0); NEUT % 45.1 % (50.0-75.0); NRBC % 0.1 % (0.0-2.0); RBC 3.86 Mil/uL (4.40-5.90); RED CELL DISTRIBUTION WIDTH 13.6 % (11.5-14.5); WHITE BLOOD COUNT 7.3 K/uL (4.8-10.8)
[2018-08-29 07:57] LABS: ALB/GLOB RATIO 1.2 (1.0-2.1); ALT/SGPT 83 U/L (21-72); AST/SGOT 84 U/L (17-59); BLOOD UREA NITROGEN 4 mg/dL (9-20); CALCIUM 8.7 mg/dl (8.6-10.4); GFR NON-AFRICAN AMERICAN > 60
--- NOTE | 2018-08-29 08:53 | CP.PCM.PN ---
<Connor Araya - Last Filed: 08/29/18 08:50> Subjective - Date & Time of Evaluation Date of Evaluation: 08/29/18 Time of Evaluation: 07:10 - Subjective Subjective: PGY6 GI Fellow Progress Note Patient seen and examined bedside this morning. The patient states that he is feeling better today but does note a fever of 101F last night. Denies loose stoo or nausea. Tolerating diet. No other complaints today. 12 system ROS performed and negative except where stated Objective - Vital Signs/Intake and Output Vital Signs (last 24 hours): Temp Pulse Resp BP Pulse Ox 98.6 F 90 20 118/81 100 08/29/18 07:00 08/29/18 07:00 08/29/18 07:00 08/29/18 07:00 08/29/18 07:00 Intake and Output: 08/29/18 08/29/18 06:59 18:59 Intake Total 800 Balance 800 - Medications Medications: Current Medications Acetaminophen (Tylenol 325mg Tab) 650 mg PO Q6 PRN PRN Reason: fever Last Admin: 08/29/18 01:06 Dose: 650 mg Enoxaparin Sodium (Lovenox) 40 mg SC DAILY [facility] Last Admin: 08/28/18 09:53 Dose: 40 mg Folic Acid (Folic Acid) 1 mg PO DAILY [facility] Stop: 09/09/18 10:01 Last Admin: 08/28/18 09:53 Dose: 1 mg Trimethoprim/Sulfamethoxazole (160 mg/ Dextrose) 250 mls @ 250 mls/hr IVPB Q8H [facility]; Protocol Last Admin: 08/29/18 02:51 Dose: 250 mls/hr Dextrose/Sodium Chloride (Dextrose 5%/0.45% Ns 1000 Ml) 1,000 mls @ 100 mls/hr IV .Q10H [facility] Last Admin: 08/28/18 21:11 Dose: 100 mls/hr Meropenem 1 gm/ Sodium (Chloride) 100 mls @ 100 mls/hr IVPB Q8H [facility]; Protocol Last Admin: 08/29/18 08:39 Dose: 100 mls/hr Ibuprofen (Motrin Tab) 600 mg PO Q8H PRN PRN Reason: Fever >100.4 F or Pain (1-10) Lactobacillus Acidophilus (Lactobacillus) 1 cap PO BID [facility] Last Admin: 08/28/18 18:15 Dose: 1 cap Pantoprazole Sodium (Protonix Ec Tab) 40 mg PO DAILY [facility] Last Admin: 08/28/18 09:52 Dose: 40 mg - Labs Labs: 08/29/18 07:20 08/29/18 07:20 - Constitutional Appears: Non-toxic, No Acute Distress - Eye Exam Eye Exam: EOMI, PERRL - ENT Exam ENT Exam: Mucous Membranes Moist - Respiratory Exam Respiratory Exam: Clear to Ausculation Bilateral. absent: Rales, Rhonchi, Wheezes - Cardiovascular Exam Cardiovascular Exam: RRR, +S1, +S2 - GI/Abdominal Exam GI & Abdominal Exam: Soft, Normal Bowel Sounds. absent: Distended, Firm, Guarding, Rigid, Tenderness, Organomegaly - Extremities Exam Extremities Exam: Normal Inspection. absent: Pedal Edema - Neurological Exam Neurological Exam: Alert, Awake, Oriented x3 - Psychiatric Exam Psychiatric exam: Normal Affect, Normal Mood - Skin Skin Exam: Dry, Warm Assessment and Plan - Assessment and Plan (Free Text) Assessment: Patient is a 28yo male with PMHx significant for nephrolithiasis and prior episode of jaundice while living in [facility] who presented to the ED with fevers and generalized malaise -Salmonella bacteremia - Typhoid fever -Abnormal LFTs, mixed picture - suspect 2/2 above - Typhoid hepatitis; improved -Nausea/vomiting, resolved -Hemolytic anemia Plan: -Fever again last night; blood cultures obtained overnight and patient restarted on IV Merrem -No further nausea/vomiting/diarrhea suggesting improvement in disease course -LFTs downtrending, presume 2/2 infectious etiology -ID following, defer management to their service at this time -Diet as tolerated, can have family bring food from home if patient prefers -No further recommendations from GI standpoint <Jay Wells - Last Filed: 08/29/18 11:52> Objective - Vital Signs/Intake and Output Vital Signs (last 24 hours): Temp Pulse Resp BP Pulse Ox 98.6 F 90 20 118/81 100 08/29/18 07:00 08/29/18 07:00 08/29/18 07:00 08/29/18 07:00 08/29/18 07:00 Intake and Output: 08/29/18 08/29/18 06:59 18:59 Intake Total 800 Balance 800 - Medications Medications: Current Medications Acetaminophen (Tylenol 325mg Tab) 650 mg PO Q6 PRN PRN Reason: fever Last Admin: 08/29/18 01:06 Dose: 650 mg Folic Acid (Folic Acid) 1 mg PO DAILY [facility] Stop: 09/09/18 10:01 Last Admin: 08/29/18 09:46 Dose: 1 mg Trimethoprim/Sulfamethoxazole (160 mg/ Dextrose) 250 mls @ 250 mls/hr IVPB Q8H [facility]; Protocol Last Admin: 08/29/18 09:46 Dose: 250 mls/hr Dextrose/Sodium Chloride (Dextrose 5%/0.45% Ns 1000 Ml) 1,000 mls @ 100 mls/hr IV .Q10H [facility] Last Admin: 08/29/18 09:46 Dose: 100 mls/hr Meropenem 1 gm/ Sodium (Chloride) 100 mls @ 100 mls/hr IVPB Q8H [facility]; Protocol Last Admin: 08/29/18 08:39 Dose: 100 mls/hr Ibuprofen (Motrin Tab) 600 mg PO Q8H PRN PRN Reason: Fever >100.4 F or Pain (1-10) Lactobacillus Acidophilus (Lactobacillus) 1 cap PO BID [facility] Last Admin: 08/29/18 09:46 Dose: 1 cap Pantoprazole Sodium (Protonix Ec Tab) 40 mg PO DAILY [facility] Last Admin: 08/29/18 09:46 Dose: 40 mg - Labs Labs: 08/29/18 07:20 08/29/18 07:20 Attending/Attestation - Attestation I have personally seen and examined this patient.: Yes I have fully participated in the care of the patient.: Yes I have reviewed all pertinent clinical information, including history, physical exam and plan: Yes Notes (Text): 08/29/18 11:49 I have seen and examined patient with GI fellow. No acute events overnight, he is seen resting in bed comfortably. He denies abdominal pain, nausea, vomiting, diarrhea. Repeat fever overnight to 101 noted. Tolerating PO diet without difficulty. Salmonella bacteremia, typhoid fever Transaminitis Hemolytic anemia - Diet as tolerated - Continue with antibiotic therapy as per ID - LFTs trending down, continue to monitor - Anti-emetic therapy PRN - No further planned GI intervention, will sign off case. Please reconsult as necessary, thank you.
[2018-08-29] MEDS: Dextrose 5%/0.45% NS 1,000 ML IV SCH ×3 (09:46→21:40)
[2018-08-29] MEDS: Enoxaparin 40 mg Syringe SC SCH (09:46)
[2018-08-29] MEDS: Lactobacillus Acidophilus 500 MU Cap PO SCH ×2 (09:46→18:00)
[2018-08-29] MEDS: Pantoprazole 40 mg EC Tab PO SCH (09:46)
--- NOTE | 2018-08-29 14:34 | CP.PCM.PN ---
"Subjective - Date & Time of Evaluation Date of Evaluation: 08/29/18 Time of Evaluation: 14:18 - Subjective Subjective: Today, patient complained of fever overnight which resolved with tylenol administration. His nausea has resolved He states his bowel movement was normal today and denies any blood in the stool or melena. Patient also denies any chest pain, SOB, abdominal pain, or any urinary symptoms. Objective - Vital Signs/Intake and Output Vital Signs (last 24 hours): Temp Pulse Resp BP Pulse Ox 100.1 F H 104 H 20 120/76 95 08/29/18 13:36 08/29/18 13:30 08/29/18 13:30 08/29/18 13:30 08/29/18 13:30 Intake and Output: 08/29/18 08/29/18 06:59 18:59 Intake Total 800 Balance 800 - Medications Medications: Current Medications Acetaminophen (Tylenol 325mg Tab) 650 mg PO Q6 PRN PRN Reason: fever Last Admin: 08/29/18 13:36 Dose: 650 mg Folic Acid (Folic Acid) 1 mg PO DAILY [facility] Stop: 09/09/18 10:01 Last Admin: 08/29/18 09:46 Dose: 1 mg Trimethoprim/Sulfamethoxazole (160 mg/ Dextrose) 250 mls @ 250 mls/hr IVPB Q8H [facility]; Protocol Last Admin: 08/29/18 09:46 Dose: 250 mls/hr Dextrose/Sodium Chloride (Dextrose 5%/0.45% Ns 1000 Ml) 1,000 mls @ 100 mls/hr IV .Q10H [facility] Last Admin: 08/29/18 09:46 Dose: 100 mls/hr Meropenem 1 gm/ Sodium (Chloride) 100 mls @ 100 mls/hr IVPB Q8H [facility]; Protocol Last Admin: 08/29/18 08:39 Dose: 100 mls/hr Ibuprofen (Motrin Tab) 600 mg PO Q8H PRN PRN Reason: Fever >100.4 F or Pain (1-10) Lactobacillus Acidophilus (Lactobacillus) 1 cap PO BID [facility] Last Admin: 08/29/18 09:46 Dose: 1 cap Pantoprazole Sodium (Protonix Ec Tab) 40 mg PO DAILY [facility] Last Admin: 08/29/18 09:46 Dose: 40 mg - Labs Labs: 08/29/18 07:20 08/29/18 07:20 - Additional Findings Additional findings: - Constitutional Appears: Well, Non-toxic, No Acute Distress - Head Exam Head Exam: ATRAUMATIC, NORMAL INSPECTION, NORMOCEPHALIC - Eye Exam Eye Exam: EOMI. absent: Scleral icterus - Neck Exam Neck Exam: Normal Inspection. absent: Lymphadenopathy (No Anterior/Posterior Cervical, Supraclavicular, or Auricular. ), Tenderness, Thyromegaly - Respiratory Exam Respiratory Exam: Clear to Ausculation Bilateral - Cardiovascular Exam Cardiovascular Exam: RRR, +S1, +S2. absent: Murmur - GI/Abdominal Exam GI & Abdominal Exam: Soft, Non-Tender, Normal Bowel Sounds Additional comments: Negative Boykin's Sign. - Extremities Exam Extremities Exam: Normal Capillary Refill, Normal Inspection - Neurological Exam Neurological Exam: Alert, Awake, Oriented x3 - Psychiatric Exam Psychiatric exam: Normal Affect, Normal Mood - Skin Skin Exam: Dry, Intact, Normal Color, Warm Assessment and Plan - Assessment and Plan (Free Text) Assessment: 28 year old male with a PMHx significant for nephrolithiasis and prior episode of jaundice who presented to the E.D with fever and generalized malaise. Patient was originally discharged from the ED. His cultures grew Salmonella and patient was called to return to the hospital for evaluation and treatment of typhoid fever/salmonella bacteremia Plan: Salmonella Bacteremia No Leukocytosis, Febrile Overnight. Blood Cultures (08/21/18) - POSITIVE for Salmonella Group A Blood Cultures (08/25/18) - NEGATIVE x 3 days Negative Studies: HIV, Hepatitis Infectious mono, Blood parasite Smear, Dengue Fever IgM Positive Studies: Dengue Fever IgG - 1.6 (Likely indicative of past infection . Mgmt: Bactrim IV Q8H (Started on 08/24/18) Meropenem 1gram Q8H (Started on 08/29/18) Ibuprofen 600 PO Q6H PRN for pain or fever Tylenol 650 PO Q6H PRN for pain (Use sparingly due to elevated liver enzymes) D5 in 1/2 NS @ 100mls/hr Typhoid Fever Febrile Overnight Stool Culture (08/25/18) - POSITIVE for Salmonella Stool Culture (08/28/18) - NEGATIVE Mgmt: Bactrim IV Q8H (Started on 08/24/18) Meropenem 1gram Q8H (Started on 08/29/18) Ibuprofen 600 PO Q6H PRN for pain or fever Tylenol 650 PO Q6H PRN for pain (Use sparingly due to elevated liver enzymes) D5 in 1/2 NS @ 100mls/hr Consider repeating Dengue IgM and IgG next week to check for increase in Dengue Fever IgG. If increase is more than four fold (over 6.4). Patient may have new infection. Anemia Likely hemolytic Anemia 2/2 to infectious process Haptoglobin < 20 | Retic Count 1.7 (Retic Index 1.49) | F/U DIC Panel (PT, PTT, Fibrinogen, D-Dimer) Elevated LFT's (Improving) GI Consult (Dr. Wells), Recs Appreciated. Likely 2/2 to Typhoid Hepatitis Hepatitis panel - NEGATIVE Proph Lovenox 40 Daily Lactobacillus 1cap PO BID Patient discussed with Attending (Dr. Christian Bartholomew) Bishop Winkler, PGY-2"
--- NOTE | 2018-08-29 14:43 | CP.PCM.PN ---
Subjective - Date & Time of Evaluation Date of Evaluation: 08/29/18 Time of Evaluation: 14:40 - Subjective Subjective: dictated Objective - Vital Signs/Intake and Output Vital Signs (last 24 hours): Temp Pulse Resp BP Pulse Ox 100.1 F H 104 H 20 120/76 95 08/29/18 13:36 08/29/18 13:30 08/29/18 13:30 08/29/18 13:30 08/29/18 13:30 Intake and Output: 08/29/18 08/29/18 06:59 18:59 Intake Total 800 Balance 800 - Medications Medications: Current Medications Acetaminophen (Tylenol 325mg Tab) 650 mg PO Q6 PRN PRN Reason: Fever >100.4 F Folic Acid (Folic Acid) 1 mg PO DAILY [facility] Stop: 09/09/18 10:01 Last Admin: 08/29/18 09:46 Dose: 1 mg Trimethoprim/Sulfamethoxazole (160 mg/ Dextrose) 250 mls @ 250 mls/hr IVPB Q8H [facility]; Protocol Last Admin: 08/29/18 09:46 Dose: 250 mls/hr Dextrose/Sodium Chloride (Dextrose 5%/0.45% Ns 1000 Ml) 1,000 mls @ 100 mls/hr IV .Q10H [facility] Last Admin: 08/29/18 09:46 Dose: 100 mls/hr Meropenem 1 gm/ Sodium (Chloride) 100 mls @ 100 mls/hr IVPB Q8H [facility]; Protocol Last Admin: 08/29/18 08:39 Dose: 100 mls/hr Ibuprofen (Motrin Tab) 600 mg PO Q8H PRN PRN Reason: Fever >100.4 F or Pain (1-10) Lactobacillus Acidophilus (Lactobacillus) 1 cap PO BID [facility] Last Admin: 08/29/18 09:46 Dose: 1 cap Pantoprazole Sodium (Protonix Ec Tab) 40 mg PO DAILY [facility] Last Admin: 08/29/18 09:46 Dose: 40 mg - Labs Labs: 08/29/18 07:20 08/29/18 07:20
--- NOTE | 2018-08-29 14:46 | CP.PCM.PN ---
Subjective - Date & Time of Evaluation Date of Evaluation: 08/29/18 Time of Evaluation: 09:30 - Subjective Subjective: clinically same Objective - Vital Signs/Intake and Output Vital Signs (last 24 hours): Temp Pulse Resp BP Pulse Ox 100.1 F H 104 H 20 120/76 95 08/29/18 13:36 08/29/18 13:30 08/29/18 13:30 08/29/18 13:30 08/29/18 13:30 Intake and Output: 08/29/18 08/29/18 06:59 18:59 Intake Total 800 Balance 800 - Medications Medications: Current Medications Acetaminophen (Tylenol 325mg Tab) 650 mg PO Q6 PRN PRN Reason: Fever >100.4 F Folic Acid (Folic Acid) 1 mg PO DAILY [facility] Stop: 09/09/18 10:01 Last Admin: 08/29/18 09:46 Dose: 1 mg Trimethoprim/Sulfamethoxazole (160 mg/ Dextrose) 250 mls @ 250 mls/hr IVPB Q8H [facility]; Protocol Last Admin: 08/29/18 09:46 Dose: 250 mls/hr Dextrose/Sodium Chloride (Dextrose 5%/0.45% Ns 1000 Ml) 1,000 mls @ 100 mls/hr IV .Q10H [facility] Last Admin: 08/29/18 09:46 Dose: 100 mls/hr Meropenem 1 gm/ Sodium (Chloride) 100 mls @ 100 mls/hr IVPB Q8H [facility]; Protocol Last Admin: 08/29/18 08:39 Dose: 100 mls/hr Ibuprofen (Motrin Tab) 600 mg PO Q8H PRN PRN Reason: Fever >100.4 F or Pain (1-10) Lactobacillus Acidophilus (Lactobacillus) 1 cap PO BID [facility] Last Admin: 08/29/18 09:46 Dose: 1 cap Pantoprazole Sodium (Protonix Ec Tab) 40 mg PO DAILY [facility] Last Admin: 08/29/18 09:46 Dose: 40 mg - Labs Labs: 08/29/18 07:20 08/29/18 07:20 - Constitutional Appears: Well - Head Exam Head Exam: ATRAUMATIC, NORMAL INSPECTION, NORMOCEPHALIC - Eye Exam Eye Exam: EOMI, Normal appearance, PERRL Pupil Exam: NORMAL ACCOMODATION, PERRL - ENT Exam ENT Exam: Mucous Membranes Moist, Normal Exam - Neck Exam Neck Exam: Full ROM, Normal Inspection. absent: Lymphadenopathy - Respiratory Exam Respiratory Exam: Decreased Breath Sounds - Cardiovascular Exam Cardiovascular Exam: REGULAR RHYTHM, +S1, +S2 - GI/Abdominal Exam GI & Abdominal Exam: Soft, Diminished Bowel Sounds - Rectal Exam Rectal Exam: Deferred Assessment and Plan - Assessment and Plan (Free Text) Plan: meropenem added
--- NOTE | 2018-08-30 00:27 | PN ---
DATE: 08/29/2018 SUBJECTIVE: The patient has continued to have fever last night also and this morning, and I went to see him. However, he said he has no abdominal pain, no vomiting today. He says the stool color is yellow today and he felt he is getting better. However, he still continued to have fevers. He did complain of some leg pain when he falls down for a few minutes in a chair. However, resident has ordered D-dimer. If the D-dimer is elevated, we will get a venous Doppler done tomorrow. He is on meropenem and Bactrim. However, if he continues to improve, I think I will continue with meropenem for another 2 weeks and would send him. We are looking into stabilizing his fevers first, and he may need treatment for at least 2 weeks more with meropenem and Bactrim; I have continued for now as he was getting better on it, but since it is a resistant organism, I think meropenem would be a better choice first. I am not sure if I want to give both of them or IV but Bactrim we can give p.o., but we have not reached that point yet. He is, however, improving. PHYSICAL EXAMINATION: HEENT: Head is atraumatic, normocephalic. NECK: Supple. LUNGS: Clear. HEART: S1, S2, tachycardic though today. ABDOMEN: Soft, nontender. No guarding, no rigidity present. EXTREMITIES: Have no edema. ASSESSMENT AND PLAN: So, we will see D-dimer tomorrow. He is also getting a PT/PTT done. His stool came out negative for stool culture, so I have discontinued the isolation. We will see the labs tomorrow. He did come in with salmonellosis. He had a recent travel to [place] and he also has had dengue antibodies present with IgM and IgG, so he did have a recent dengue. We will follow. Christi Fragoso MD
[2018-08-30] MEDS: Meropenem 1 GM in Sodium Chloride 0.9% 100 ML IVPB SCH ×3 (01:18→16:26)
[2018-08-30] MEDS: Dextrose 5%/0.45% NS 1,000 ML IV SCH ×2 (02:21→16:25)
[2018-08-30] MEDS: Sulfamethoxazole/Trimethoprim 160 MG in Dextrose 5% In Water 250 ML IVPB SCH ×3 (02:22→18:02)
[2018-08-30 07:44] LABS: BASO % 0.5 % (0.0-2.0); EOS # 0.1 K/uL (0.0-0.7); EOS % 1.2 % (0.0-4.0); HEMOGLOBIN 12.6 g/dL (12.0-18.0); LYMPH # 2.5 K/uL (1.0-4.3); LYMPH % 31.9 % (20.0-40.0); MEAN CORPUSCULAR HEMOGLOBIN 28.4 pg (27.0-31.0); MEAN CORPUSCULAR HGB CONC 31.9 g/dL (33.0-37.0); MEAN PLATELET VOLUME 8.6 fL (7.2-11.7); MONO # 0.8 K/uL (0.0-0.8); MONO % 10.7 % (0.0-10.0); NEUT # 4.4 K/uL (1.8-7.0); NEUT % 55.7 % (50.0-75.0); NRBC % 0.1 % (0.0-2.0); RBC 4.44 Mil/uL (4.40-5.90); RED CELL DISTRIBUTION WIDTH 13.7 % (11.5-14.5); WHITE BLOOD COUNT 7.9 K/uL (4.8-10.8)
--- NOTE | 2018-08-30 07:53 | CP.PCM.PN ---
"Subjective - Date & Time of Evaluation Date of Evaluation: 08/30/18 Time of Evaluation: 07:53 - Subjective Subjective: Progress Note: Dr. Christian Bartholomew Patient seen and examined at bedside. Per nursing no acute events occurred overnight. Patient reports fevers overnight in association with night sweats. Patient denies any chest pain, shortness of breath, fevers, chills, abdominal pain, or any other complaints. Objective - Vital Signs/Intake and Output Vital Signs (last 24 hours): Temp Pulse Resp BP Pulse Ox 98.6 F 89 20 118/76 99 08/30/18 07:00 08/30/18 07:00 08/30/18 07:00 08/30/18 07:00 08/30/18 07:00 Intake and Output: 08/30/18 08/30/18 06:59 18:59 Intake Total 1150 Balance 1150 - Medications Medications: Current Medications Acetaminophen (Tylenol 325mg Tab) 650 mg PO Q6 PRN PRN Reason: Fever >100.4 F Enoxaparin Sodium (Lovenox) 40 mg SC DAILY [facility] Folic Acid (Folic Acid) 1 mg PO DAILY [facility] Stop: 09/09/18 10:01 Last Admin: 08/29/18 09:46 Dose: 1 mg Trimethoprim/Sulfamethoxazole (160 mg/ Dextrose) 250 mls @ 250 mls/hr IVPB Q8H [facility]; Protocol Last Admin: 08/30/18 02:22 Dose: 250 mls/hr Dextrose/Sodium Chloride (Dextrose 5%/0.45% Ns 1000 Ml) 1,000 mls @ 100 mls/hr IV .Q10H [facility] Last Admin: 08/30/18 02:21 Dose: Not Given Meropenem 1 gm/ Sodium (Chloride) 100 mls @ 100 mls/hr IVPB Q8H [facility]; Protocol Last Admin: 08/30/18 01:18 Dose: 100 mls/hr Lactobacillus Acidophilus (Lactobacillus) 1 cap PO BID [facility] Last Admin: 08/29/18 18:00 Dose: 1 cap Pantoprazole Sodium (Protonix Ec Tab) 40 mg PO DAILY [facility] Last Admin: 08/29/18 09:46 Dose: 40 mg - Labs Labs: 08/30/18 07:29 08/29/18 07:20 - Head Exam Head Exam: ATRAUMATIC, NORMAL INSPECTION - Eye Exam Eye Exam: EOMI, Normal appearance, PERRL Pupil Exam: NORMAL ACCOMODATION - ENT Exam ENT Exam: Mucous Membranes Moist, Normal Oropharynx - Respiratory Exam Respiratory Exam: Clear to Ausculation Bilateral, NORMAL BREATHING PATTERN. absent: Respiratory Distress - Cardiovascular Exam Cardiovascular Exam: REGULAR RHYTHM, +S1, +S2 - GI/Abdominal Exam GI & Abdominal Exam: Soft, Normal Bowel Sounds. absent: Hyperactive Bowel Sounds - Extremities Exam Extremities Exam: Full ROM, Normal Inspection. absent: Pedal Edema - Back Exam Back Exam: NORMAL INSPECTION. absent: paraspinal tenderness - Neurological Exam Neurological Exam: Alert, Awake, Oriented x3 - Psychiatric Exam Psychiatric exam: Normal Affect, Normal Mood - Skin Skin Exam: Dry, Intact Assessment and Plan - Assessment and Plan (Free Text) Assessment: 28 year old male with a PMHx significant for nephrolithiasis and prior episode of jaundice who presented to the E.D with fever and generalized malaise. Melvina rhoades was originally discharged from the ED. His cultures grew Salmonella and patient was called to return to the hospital for evaluation and treatment of typhoid fever/salmonella bacteremia Plan: Salmonella Bacteremia No Leukocytosis, Febrile Overnight. Blood Cultures (08/21/18) - POSITIVE for Salmonella Group A Blood Cultures (08/25/18) - NEGATIVE x 3 days Negative Studies: HIV, Hepatitis Infectious mono, Blood parasite Smear, Dengue Fever IgM Positive Studies: Dengue Fever IgG - 1.6 (Likely indicative of past infection . Chest abdomen/pelvis taken. Will f/u with read. Duplex lower extremity taken. Will f/u with read. Mgmt: Bactrim IV Q8H (Started on 08/24/18) Meropenem 1gram Q8H (Started on 08/29/18) Tylenol 650 PO Q6H PRN for pain (Use sparingly due to elevated liver enzymes) D5 in 1/2 NS @ 100mls/hr Typhoid Fever Febrile Overnight Stool Culture (08/25/18) - POSITIVE for Salmonella Stool Culture (08/28/18) - NEGATIVE Mgmt: Bactrim IV Q8H (Started on 08/24/18 Meropenem 1gram Q8H (Started on 08/29/18) Tylenol 650 PO Q6H PRN for pain (Use sparingly due to elevated liver enzymes) D5 in 1/2 NS @ 100mls/hr Consider repeating Dengue IgM and IgG next week to check for increase in Dengue Fever IgG. If increase is more than four fold (over 6.4). Patient may have new infection. Anemia Likely hemolytic Anemia 2/2 to infectious process Haptoglobin < 20 | Retic Count 1.7 (Retic Index 1.49) | DIC Panel :PT-141 :PTT:34 :d- DIMER :531 :Fibrinogen:533 Elevated LFT's (Improving) GI Consult (Dr. Wells), Recs Appreciated. Likely 2/2 to Typhoid Hepatitis Hepatitis panel - NEGATIVE Proph Lovenox 40 Daily Lactobacillus 1cap PO BID Protonix 40mg PO Daily Dispo: Awaiting imaging studies ordered. Patient still spiking fevers overnight. Will continue to monitor. Patient discussed with Attending (Dr. Christian Bartholomew) Nando Santos, PGY-2"
[2018-08-30 07:58] LABS: ALB/GLOB RATIO 1.1 (1.0-2.1); ALBUMIN 4.4 g/dL (3.5-5.0); ALT/SGPT 78 U/L (21-72); AST/SGOT 70 U/L (17-59); BLOOD UREA NITROGEN 4 mg/dL (9-20); CALCIUM 9.1 mg/dl (8.6-10.4); GFR NON-AFRICAN AMERICAN > 60
[2018-08-30] MEDS: Enoxaparin 40 mg Syringe SC SCH (09:15)
[2018-08-30] MEDS: Pantoprazole 40 mg EC Tab PO SCH (09:15)
[2018-08-30] MEDS: Lactobacillus Acidophilus 500 MU Cap PO SCH ×2 (09:15→17:57)
[2018-08-30 09:19] LABS: INR 1.3; PROTHROMBIN TIME 14.1 SECONDS (9.7-12.2)
[2018-08-30] MEDS ORDERED: Iohexol 240 (50 ml) PO ONE (10:00)
--- NOTE | 2018-08-30 15:57 | CP.PCM.PN ---
Subjective - Date & Time of Evaluation Date of Evaluation: 08/30/18 Time of Evaluation: 15:00 - Subjective Subjective: dictated Objective - Vital Signs/Intake and Output Vital Signs (last 24 hours): Temp Pulse Resp BP Pulse Ox 98.8 F 103 H 20 106/70 98 08/30/18 15:00 08/30/18 15:00 08/30/18 15:00 08/30/18 15:00 08/30/18 15:00 Intake and Output: 08/30/18 08/30/18 06:59 18:59 Intake Total 1150 Balance 1150 - Medications Medications: Current Medications Acetaminophen (Tylenol 325mg Tab) 650 mg PO Q6 PRN PRN Reason: Fever >100.4 F Last Admin: 08/30/18 11:13 Dose: 650 mg Enoxaparin Sodium (Lovenox) 40 mg SC DAILY [facility] Last Admin: 08/30/18 09:15 Dose: 40 mg Folic Acid (Folic Acid) 1 mg PO DAILY [facility] Stop: 09/09/18 10:01 Last Admin: 08/30/18 09:15 Dose: 1 mg Trimethoprim/Sulfamethoxazole (160 mg/ Dextrose) 250 mls @ 250 mls/hr IVPB Q8H [facility]; Protocol Last Admin: 08/30/18 11:12 Dose: 250 mls/hr Dextrose/Sodium Chloride (Dextrose 5%/0.45% Ns 1000 Ml) 1,000 mls @ 100 mls/hr IV .Q10H [facility] Last Admin: 08/30/18 02:21 Dose: Not Given Meropenem 1 gm/ Sodium (Chloride) 100 mls @ 100 mls/hr IVPB Q8H [facility]; Protocol Last Admin: 08/30/18 09:15 Dose: 100 mls/hr Lactobacillus Acidophilus (Lactobacillus) 1 cap PO BID [facility] Last Admin: 08/30/18 09:15 Dose: 1 cap Pantoprazole Sodium (Protonix Ec Tab) 40 mg PO DAILY [facility] Last Admin: 08/30/18 09:15 Dose: 40 mg - Labs Labs: 08/30/18 07:29 08/30/18 07:29 PT 14.1 SECONDS (9.7-12.2) H 08/30/18 07:29 INR 1.3 08/30/18 07:29 APTT 34 SECONDS (21-34) 08/30/18 07:29
--- NOTE | 2018-08-30 16:18 | CT ---
Date of service: 08/30/2018 CT abdomen and pelvis with IV contrast Indication: source of infection/fever Technique: Contiguous axial images of the abdomen pelvis. Coronal and Sagittal reformats generated and reviewed. This CT exam was performed using 1 or more of the following dose reduction techniques: Automated exposure control, adjustment of the MAA and/or kV according to patient size, and/or use of iterative reconstruction technique. Contrast: 100 mL Visipaque 320 IV Radiation dose: Total exam DLP = 1229.07 MGy-cm. Comparison: Chest x-ray performed 08/24/18, CT abdomen pelvis with IV contrast performed 08/22/18 Findings: No visible consolidation, pleural effusion, or pneumothorax. 11 mm right renal hypodensity, likely cyst. Nonobstructing bilateral renal calculi. No hydronephrosis. Hepatomegaly. Splenomegaly. The pancreas, adrenal glands, and gallbladder appear unremarkable. The stomach is nondistended. Extensive mesenteric and retroperitoneal adenopathy measuring up to 1.4 cm in short axis (left periaortic lymph node). The bowel loops appear within normal limits of caliber without evidence of intestinal obstruction. Transverse colon appears thick wall raising concern for colitis. There is no definite free air. The urinary bladder appears unremarkable. Degenerative changes of the spine. Impression: Hepatomegaly. Splenomegaly. Extensive mesenteric and retroperitoneal adenopathy measuring up to 1.4 cm in short axis (left para-aortic lymph node). Correlate clinically. Thick-walled transverse colon raises concern for colitis. Correlate clinically. Additional findings as above.
--- NOTE | 2018-08-30 19:41 | CP.PCM.PN ---
Subjective - Date & Time of Evaluation Date of Evaluation: 08/30/18 Time of Evaluation: 10:15 - Subjective Subjective: clinically same Objective - Vital Signs/Intake and Output Vital Signs (last 24 hours): Temp Pulse Resp BP Pulse Ox 98.8 F 103 H 20 106/70 98 08/30/18 15:00 08/30/18 15:00 08/30/18 15:00 08/30/18 15:00 08/30/18 15:00 - Medications Medications: Current Medications Acetaminophen (Tylenol 325mg Tab) 650 mg PO Q6 PRN PRN Reason: Fever >100.4 F Last Admin: 08/30/18 11:13 Dose: 650 mg Enoxaparin Sodium (Lovenox) 40 mg SC DAILY [facility] Last Admin: 08/30/18 09:15 Dose: 40 mg Folic Acid (Folic Acid) 1 mg PO DAILY [facility] Stop: 09/09/18 10:01 Last Admin: 08/30/18 09:15 Dose: 1 mg Trimethoprim/Sulfamethoxazole (160 mg/ Dextrose) 250 mls @ 250 mls/hr IVPB Q8H [facility]; Protocol Last Admin: 08/30/18 18:02 Dose: 250 mls/hr Dextrose/Sodium Chloride (Dextrose 5%/0.45% Ns 1000 Ml) 1,000 mls @ 100 mls/hr IV .Q10H [facility] Last Admin: 08/30/18 16:25 Dose: 100 mls/hr Meropenem 1 gm/ Sodium (Chloride) 100 mls @ 100 mls/hr IVPB Q8H [facility]; Protocol Last Admin: 08/30/18 16:26 Dose: 100 mls/hr Lactobacillus Acidophilus (Lactobacillus) 1 cap PO BID [facility] Last Admin: 08/30/18 17:57 Dose: 1 cap Pantoprazole Sodium (Protonix Ec Tab) 40 mg PO DAILY [facility] Last Admin: 08/30/18 09:15 Dose: 40 mg - Labs Labs: 08/30/18 07:29 08/30/18 07:29 PT 14.1 SECONDS (9.7-12.2) H 08/30/18 07:29 INR 1.3 08/30/18 07:29 APTT 34 SECONDS (21-34) 08/30/18 07:29 - Constitutional Appears: Well - Head Exam Head Exam: ATRAUMATIC, NORMAL INSPECTION, NORMOCEPHALIC - Eye Exam Eye Exam: EOMI, Normal appearance, PERRL Pupil Exam: NORMAL ACCOMODATION, PERRL - ENT Exam ENT Exam: Mucous Membranes Moist, Normal Exam - Neck Exam Neck Exam: Full ROM, Normal Inspection. absent: Lymphadenopathy - Respiratory Exam Respiratory Exam: Decreased Breath Sounds - Cardiovascular Exam Cardiovascular Exam: REGULAR RHYTHM, +S1, +S2 - GI/Abdominal Exam GI & Abdominal Exam: Soft, Diminished Bowel Sounds - Rectal Exam Rectal Exam: Deferred
[2018-08-30] MEDS ORDERED: Tuberculin 5 Units/0.1 ml Inj ID ONE (23:00)
[2018-08-30 23:29] LABS: INTRACELLULAR PARASITE NEGATIVE (NEGATIVE)
[2018-08-31] MEDS: Meropenem 1 GM in Sodium Chloride 0.9% 100 ML IVPB SCH ×4 (00:48→23:45)
[2018-08-31] MEDS: Dextrose 5%/0.45% NS 1,000 ML IV SCH ×4 (00:51→18:14)
--- NOTE | 2018-08-31 03:56 | PN ---
DATE: 08/30/2018 INFECTIOUS DISEASE FOLLOWUP NOTE SUBJECTIVE: The patient was seen today. Overnight, he has been having fevers of 101.9 and that remains his only complaint. He denies any joint pain. He said he went to bowel movement twice today, but it was not diarrhea. He is having solid, now a little bit solid stool. He is also trying to eat, but he is frustrated that he is having fevers every day and is not able to get out of the hospital. He denies any joint pains. He did have the CAT scans done. The results of which were pending when I saw him. At this time, they speak to Dr. Christian Bartholomew and would like to have Dr. Bucio to take a look at all the workup that we have done. The patient has clinically improved. His procalcitonin level is also much better, but the fevers are still coming, maybe will need to work up more for any other etiology than salmonellosis. PHYSICAL EXAMINATION: VITAL SIGNS: T-max was 101.9 last night, heart rate of 103, blood pressure 106/70, respirations are 20. HEENT: Head is atraumatic, normocephalic. Tongue is moist. NECK: Supple. JVP is flat. LUNGS: Clear. HEART: S1 and S2 are regular. ABDOMEN: Soft, nontender. Bowel sounds are present. EXTREMITIES: Have no edema. No clubbing. LABORATORY DATA: White count is 7.9 today, hemoglobin 12.6, hematocrit 39.5, platelet count is 293, monos remain 10.7 which is part of the disease, I think. INR is 1.3. 553. D-dimer is 531. Sodium 137, potassium 4.2, BUN is 4, creatinine 0.7. Bilirubin is 1.6; AST is 70, is little better than yesterday; ALT is 78, is improving; alkaline phosphatase remains at 143; and globulin is 4.2. Procalcitonin is 0.14. All the numbers are better now. Hepatitis profile was negative. I did look up at the CAT scan report of abdomen and pelvis. I do not know why they canceled the chest CAT. At this time, I am looking at the report. The report shows that he has a renal cyst which was there. He has splenomegaly, hepatomegaly. The pancreas, adrenal and gallbladder appear unremarkable. I want to see if they said anything about the liver. No visible consolidation, pleural effusion, or pneumothorax in the chest. There is extensive mesenteric and retroperitoneal adenopathy, measuring up to 1.4 cm in short axis, left para-aortic lymph nodes. The bowel loops appear within normal limits of caliber without evidence of intestinal obstruction. Transverse colon appears thick walled, raising the concern for colitis. There is no definite free air. The urinary bladder appears unremarkable. Degenerative changes of the spine. IMPRESSION AND PLAN: Hepatomegaly; splenomegaly; extensive mesenteric and retroperitoneal adenopathy, measuring up to 1.4 cm in short axis, correlate clinically; thick-walled transverse colon, raising concern for colitis, correlate clinically. At this time, it is going with Salmonella, he does have a lot of adenopathy which is part of the Salmonella, but clinically he is improving but the fevers spike. Since history of travel and cyclical fever, we will give him a treatment for malaria empirically today and also call Dr. Bucio if he can evaluate the patient and give it a fresh look. I would discontinue Bactrim at this time as stool culture is negative. We will leave on a single drug now of meropenem and follow, and hopefully fevers will subside. Also, we will order a purified protein derivative in view of so much lymphadenopathy in the abdomen. I doubt it is lymphoma but his lactic acid dehydrogenase was also high. We will repeat the lactic acid dehydrogenase level and we will follow. Christi Fragoso MD
[2018-08-31 08:33] LABS: BASO % 0.6 % (0.0-2.0); EOS % 0.6 % (0.0-4.0); HEMOGLOBIN 10.8 g/dL (12.0-18.0); LYMPH # 2.2 K/uL (1.0-4.3); LYMPH % 31.3 % (20.0-40.0); MEAN CELL VOLUME 87.4 fL (80.0-94.0); MEAN CORPUSCULAR HEMOGLOBIN 28.8 pg (27.0-31.0); MEAN CORPUSCULAR HGB CONC 32.9 g/dL (33.0-37.0); MEAN PLATELET VOLUME 8.8 fL (7.2-11.7); MONO # 0.6 K/uL (0.0-0.8); MONO % 9.1 % (0.0-10.0); NEUT # 4.1 K/uL (1.8-7.0); NEUT % 58.4 % (50.0-75.0); RBC 3.77 Mil/uL (4.40-5.90); RED CELL DISTRIBUTION WIDTH 13.7 % (11.5-14.5)
[2018-08-31 09:01] LABS: ALB/GLOB RATIO 1.2 (1.0-2.1); ALBUMIN 4.1 g/dL (3.5-5.0); ALT/SGPT 58 U/L (21-72); AST/SGOT 53 U/L (17-59); BLOOD UREA NITROGEN 4 mg/dL (9-20); CALCIUM 8.9 mg/dl (8.6-10.4); GFR NON-AFRICAN AMERICAN > 60
[2018-08-31] MEDS: Pantoprazole 40 mg EC Tab PO SCH (09:07)
[2018-08-31] MEDS: Enoxaparin 40 mg Syringe SC SCH (09:07)
[2018-08-31] MEDS: Lactobacillus Acidophilus 500 MU Cap PO SCH ×2 (09:07→17:03)
--- NOTE | 2018-08-31 11:08 | VASCLAB ---
Date of service: 08/30/2018 PROCEDURE: Lower Extremity Venous Duplex Exam. HISTORY: source of infection/fever PRIORS: None. TECHNIQUE: Bilateral common femoral, femoral, popliteal and posterior tibial, peroneal and great saphenous veins were evaluated. Flow was assessed with color Doppler, compressibility, assessment of phasic flow and augmentation response. Report prepared by Agus Bernabe, AGUSTÍN, RVT FINDINGS: RIGHT: 1. Common Femoral Vein: 1.1. Compressibility - Fully compressible: Thrombus - None : Flow - Phasic: Augmentation -Normal: Reflux - None. 2. Femoral Vein: 2.1. Compressibility - Fully compressible: Thrombus - None : Flow - Phasic: Augmentation -Normal: Reflux - None. 3. Popliteal Vein: 3.1. Compressibility - Fully compressible: Thrombus - None : Flow - Phasic: Augmentation -Normal: Reflux - None. 4. Posterior Tibial Vein: 4.1. Compressibility - Fully compressible: Thrombus - None: Flow - Phasic: Augmentation -Normal: Reflux - None. 5. Peroneal Vein: 5.1. Compressibility - Fully compressible: Thrombus - None: Flow - Phasic: Augmentation -Normal: Reflux - None. 6. Great Saphenous Vein: 6.1. Compressibility - Fully compressible: Thrombus - None: Flow - Phasic: Augmentation - Normal: Reflux - None. LEFT: 1. Common Femoral Vein: 1.1. Compressibility - Fully compressible: Thrombus - None: Flow - Phasic: Augmentation -Normal: Reflux - None. 2. Femoral Vein: 2.1. Compressibility - Fully compressible: Thrombus - None: Flow - Phasic: Augmentation -Normal: Reflux - None. 3. Popliteal Vein: 3.1. Compressibility - Fully compressible: Thrombus - None : Flow - Phasic: Augmentation -Normal: Reflux - None. 4. Posterior Tibial Vein: 4.1. Compressibility - Fully compressible: Thrombus - None: Flow - Phasic: Augmentation -Normal: Reflux - None. 5. Peroneal Vein: 5.1. Compressibility - Fully compressible: Thrombus - None: Flow - Phasic: Augmentation -Normal: Reflux - None. 6. Great Saphenous Vein: 6.1. Compressibility - Fully compressible: Thrombus - None: Flow - Phasic: Augmentation - Normal: Reflux - None. OTHER FINDINGS: Right: None significant. Left: None significant. IMPRESSION: Right: No evidence of deep or superficial vein thrombosis of the right lower extremity. Normal valve function noted of the right side. Left: No evidence of deep or superficial vein thrombosis of the left lower extremity. Normal valve function noted of the left side.
--- NOTE | 2018-08-31 12:16 | CP.PCM.PN ---
Subjective - Date & Time of Evaluation Date of Evaluation: 08/31/18 Time of Evaluation: 10:00 - Subjective Subjective: clinically same Objective - Vital Signs/Intake and Output Vital Signs (last 24 hours): Temp Pulse Resp BP Pulse Ox 100.1 F H 100 H 20 113/68 97 08/31/18 07:00 08/31/18 07:00 08/31/18 07:00 08/31/18 07:00 08/31/18 07:00 - Medications Medications: Current Medications Acetaminophen (Tylenol 325mg Tab) 650 mg PO Q6 PRN PRN Reason: Fever >100.4 F Last Admin: 08/30/18 20:08 Dose: 650 mg Enoxaparin Sodium (Lovenox) 40 mg SC DAILY [facility] Last Admin: 08/31/18 09:07 Dose: 40 mg Folic Acid (Folic Acid) 1 mg PO DAILY [facility] Stop: 09/09/18 10:01 Last Admin: 08/31/18 09:07 Dose: 1 mg Dextrose/Sodium Chloride (Dextrose 5%/0.45% Ns 1000 Ml) 1,000 mls @ 100 mls/hr IV .Q10H [facility] Last Admin: 08/31/18 07:38 Dose: Not Given Lactobacillus Acidophilus (Lactobacillus) 1 cap PO BID [facility] Last Admin: 08/31/18 09:07 Dose: 1 cap Pantoprazole Sodium (Protonix Ec Tab) 40 mg PO DAILY [facility] Last Admin: 08/31/18 09:07 Dose: 40 mg - Labs Labs: 08/31/18 08:20 08/31/18 08:20 PT 14.1 SECONDS (9.7-12.2) H 08/30/18 07:29 INR 1.3 08/30/18 07:29 APTT 34 SECONDS (21-34) 08/30/18 07:29 - Constitutional Appears: Well - Head Exam Head Exam: ATRAUMATIC, NORMAL INSPECTION, NORMOCEPHALIC - Eye Exam Eye Exam: EOMI, Normal appearance, PERRL Pupil Exam: NORMAL ACCOMODATION, PERRL - ENT Exam ENT Exam: Mucous Membranes Moist, Normal Exam - Neck Exam Neck Exam: Full ROM, Normal Inspection. absent: Lymphadenopathy - Respiratory Exam Respiratory Exam: Decreased Breath Sounds - Cardiovascular Exam Cardiovascular Exam: REGULAR RHYTHM, +S1, +S2 - GI/Abdominal Exam GI & Abdominal Exam: Soft, Diminished Bowel Sounds - Rectal Exam Rectal Exam: Deferred
--- NOTE | 2018-08-31 15:35 | CP.PCM.PN ---
Subjective - Date & Time of Evaluation Date of Evaluation: 08/31/18 Time of Evaluation: 15:10 - Subjective Subjective: dictated Objective - Vital Signs/Intake and Output Vital Signs (last 24 hours): Temp Pulse Resp BP Pulse Ox 100.1 F H 100 H 20 113/68 97 08/31/18 07:00 08/31/18 07:00 08/31/18 07:00 08/31/18 07:00 08/31/18 07:00 - Medications Medications: Current Medications Acetaminophen (Tylenol 325mg Tab) 650 mg PO Q6 PRN PRN Reason: Fever >100.4 F Last Admin: 08/30/18 20:08 Dose: 650 mg Enoxaparin Sodium (Lovenox) 40 mg SC DAILY [facility] Last Admin: 08/31/18 09:07 Dose: 40 mg Folic Acid (Folic Acid) 1 mg PO DAILY [facility] Stop: 09/09/18 10:01 Last Admin: 08/31/18 09:07 Dose: 1 mg Dextrose/Sodium Chloride (Dextrose 5%/0.45% Ns 1000 Ml) 1,000 mls @ 100 mls/hr IV .Q10H [facility] Last Admin: 08/31/18 13:35 Dose: 100 mls/hr Meropenem 1 gm/ Sodium (Chloride) 100 mls @ 100 mls/hr IVPB Q8H [facility]; Protocol Lactobacillus Acidophilus (Lactobacillus) 1 cap PO BID [facility] Last Admin: 08/31/18 09:07 Dose: 1 cap Pantoprazole Sodium (Protonix Ec Tab) 40 mg PO DAILY [facility] Last Admin: 08/31/18 09:07 Dose: 40 mg - Labs Labs: 08/31/18 08:20 08/31/18 08:20 PT 14.1 SECONDS (9.7-12.2) H 08/30/18 07:29 INR 1.3 08/30/18 07:29 APTT 34 SECONDS (21-34) 08/30/18 07:29
[2018-08-31] MEDS ORDERED: Iodixanol 320 MG/ML 100 ML BOTTLE IV ONE (16:52)
--- NOTE | 2018-09-01 01:36 | PN ---
DATE: 08/31/2018 INFECTIOUS DISEASE FOLLOWUP The patient had fever yesterday and I empirically treated him for malaria also and discontinued the Bactrim. He is on meropenem at this time. T-max was 101.4 last night and this morning was 100, but at this time when I saw him he was afebrile, still tachycardiac. He was concerned about his CAT scan report. Heart rate is 105, blood pressure 105/62, respirations are 20. He denies any diarrhea. Denies any abdominal pain. Denies any vomiting. He feels better, however, his fevers do return at night, so we need to see that if it was related to Bactrim or to other etiology and he remains on Merrem. Today, is the 11th day of his antibiotics here, and I have also called, Dr. Bucio as he was having fevers and I wanted him to overview if there was anything left. At this time, we will continue meropenem and we will follow. He did have bacteremia and he needs to be on the antibiotics. The patient did have Salmonella bacteremia and has now negative culture on blood as well as on the stool. We have to continue for her recent salmonellosis as it was resistant to Cipro as well as ampicillin and sensitive only to limited drugs. We will follow. Christi Fragoso MD
[2018-09-01] MEDS: Dextrose 5%/0.45% NS 1,000 ML IV SCH ×2 (04:15→17:47)
[2018-09-01] MEDS: Meropenem 1 GM in Sodium Chloride 0.9% 100 ML IVPB SCH ×3 (07:59→23:50)
[2018-09-01] MEDS: Pantoprazole 40 mg EC Tab PO SCH (09:05)
[2018-09-01] MEDS: Lactobacillus Acidophilus 500 MU Cap PO SCH ×2 (09:05→17:46)
[2018-09-01] MEDS: Enoxaparin 40 mg Syringe SC SCH (09:05)
[2018-09-01 09:11] LABS: BASO % 0.4 % (0.0-2.0); EOS # 0.1 K/uL (0.0-0.7); EOS % 1.1 % (0.0-4.0); HEMOGLOBIN 11.4 g/dL (12.0-18.0); LYMPH # 2.4 K/uL (1.0-4.3); MEAN CELL VOLUME 87.6 fL (80.0-94.0); MEAN CORPUSCULAR HEMOGLOBIN 28.7 pg (27.0-31.0); MEAN CORPUSCULAR HGB CONC 32.8 g/dL (33.0-37.0); MEAN PLATELET VOLUME 8.2 fL (7.2-11.7); MONO # 0.7 K/uL (0.0-0.8); MONO % 11.3 % (0.0-10.0); NEUT # 3.3 K/uL (1.8-7.0); NEUT % 50.2 % (50.0-75.0); NRBC % 0.1 % (0.0-2.0); RBC 3.96 Mil/uL (4.40-5.90); RED CELL DISTRIBUTION WIDTH 13.8 % (11.5-14.5); WHITE BLOOD COUNT 6.6 K/uL (4.8-10.8)
[2018-09-01 09:23] LABS: ALB/GLOB RATIO 1.1 (1.0-2.1); ALBUMIN 4.4 g/dL (3.5-5.0); ALT/SGPT 59 U/L (21-72); AST/SGOT 57 U/L (17-59); BLOOD UREA NITROGEN 4 mg/dL (9-20); CALCIUM 9.2 mg/dl (8.6-10.4); GFR NON-AFRICAN AMERICAN > 60
--- NOTE | 2018-09-01 12:20 | CT ---
Date of service: 08/31/2018 PROCEDURE: CT Chest with contrast HISTORY: SOURCE OF INFECTION COMPARISON: The TECHNIQUE: Contiguous axial images were obtained through the chest with intravenous contrast enhancement. Sagittal and coronal reconstructions were performed. IV contrast: 100 cc Visipaque 320 Radiation dose: Total exam DLP = 669.98 mGy-cm. This CT exam was performed using one or more of the following dose reduction techniques: Automated exposure control, adjustment of the mA and/or kV according to patient size, and/or use of iterative reconstruction technique. FINDINGS: LUNGS: Clear lungs. Visualized airway clear.. There is a tiny calcified granuloma left posterior sulcus. Rule out prior exposure to a granulomatous disease process. MEDIASTINUM: Unremarkable thoracic aorta. No aneurysm or dissection. Normal sized heart. Main pulmonary artery unremarkable. No vascular congestion. No lymphadenopathy. No aortic atherosclerotic calcification or mural plaque present. PLEURA: No pleural fluid. No pneumothorax. BONES: No fracture. No destructive lesion. UPPER ABDOMEN: Grossly unremarkable. OTHER FINDINGS: None. IMPRESSION: No acute infiltrates. No effusion or pneumothorax. Tiny calcified granuloma left posterior sulcus; rule out prior exposure to a granulomatous disease process. The
--- NOTE | 2018-09-01 15:06 | CP.PCM.CON ---
History of Present Illness - History of Present Illness History of Present Illness: 28yo male presented to the ED with fevers and generalized malaise. The patient was in [place] from the end of July to the end of August. Three days after returning to the [facility], he developed high fevers (~102F) and saw his PCP. Exten sive work up was performed and patient was believed to have Dengue Fever (outpaitnet IgG was elevated) and he was told to rest and remain hydrated. Symptoms did resolve after approximately 7-10 days but then again developed fevers, chills and generalized malaise. He went to the ER where blood cultures were done but he was later discharged and Cultures grew Salmonella in both bottles and patient was notified to return to the hospital for therapy. He was treated with IV antibiotics including Bactrim IV and now Merrem . Repeat cultures are now negative and echocardiogram to look for vegetations was unremarkable. LFTs were noted to be elevated in a mixed pattern and CT abdomen/pelvis does show enlarged lymph nodes along with hepatosplenomegaly. PMHx: See HPI PSHx: Denies prior surgical history FHx: Discussed with patient and denies any significant family history Social: Rare EtOH use; denies tobacco or illicit drug use Endo: No prior EGD/Colonoscopy Review of Systems - Review of Systems All systems: reviewed and no additional remarkable complaints except - Constitutional Constitutional: As Per HPI - EENT Eyes: absent: As Per HPI, Blind Spots, Blurred Vision, Change in Vision, Decreased Night Vision, Diplopia, Discharge, Dry Eye, Exophthalmos, Floaters, Irritation, Itchy Eyes, Loss of Peripheral Vision, Pain, Photophobia, Requires C orrective Lenses, Sees Flashes, Spots in Vision, Tunnel Vision, Other Visual Disturbances, Loss of Vision, Other Ears: absent: As Per HPI, Decreased Hearing, Ear Discharge, Ear Pain, Tinnitus, Abnormal Hearing, Disequilibrium, Dizziness, Other Nose/Mouth/Throat: absent: As Per HPI, Epistaxis, Nasal Congestion, Nasal Discharge, Nasal Obstruction, Nasal Trauma, Nose Pain, Post Nasal Drip, Sinus Pain, Sinus Pressure, Bleeding Gums, Change in Voice, Dental Pain, Dry Mouth, Dysphagia, Halitosis, Hoarsness, Lip Swelling, Mouth Lesions, Mouth Pain, Od ynophagia, Sore Throat, Throat Swelling, Tongue Swelling, Facial Pain, Neck Pain, Neck Mass, Other - Cardiovascular Cardiovascular: absent: As Per HPI, Acrocyanosis, Chest Pain, Chest Pain at Rest, Chest Pain with Activity, Claudication, Diaphoresis, Dyspnea, Dyspnea on Exertion, Edema, Irregular Heart Rhythm, Pain Radiating to Arm/Neck/Jaw, Leg Edema, Leg Ulcers, Lightheadedness, Orthopnea, Palpitations, Paroxysmal Nocturnal Dyspnea, Pedal Edema, Radiating Pain, Rapid Heart Rate, Slow Heart Rate, Syncope, Other - Respiratory Respiratory: absent: As Per HPI, Cough, Dyspnea, Hemoptysis, Dyspnea on Exertion, Wheezing, Snoring, Stridor, Pain on Inspiration, Chest Congestion, Excessive Mucous Production, Change in Mucous Color, Pain with Coughing, Other - Gastrointestinal Gastrointestinal: absent: As Per HPI, Abdominal Pain, Belching, Bloating, Change in Bowel Habits, Change in Stool Character, Coffee Ground Emesis, Constipation, Cramping, Diarrhea, Dyspepsia, Dysphagia, Early Satiety, Excessive Flatus, Fecal Incontinence, Heartburn, Hematemesis, Hematochezia, Loose Stools, Melena, Nausea, Odynophagia, Temesmus, Vomiting, Other - Genitourinary Genitourinary: absent: As Per HPI, Change in Urinary Stream, Difficulty Urinating, Dysuria, Flank Pain, Hematuria, Pyuria, Nocturia, Urinary Incontinence, Urinary Frequency, Urinary Hesitance, Urinary Urgency, Voiding Freq/Small Amts, Freq UTI, Hx Renal/Bladder Calculi, Hx /Renal Surgery, Bladder Distension, Other - Musculoskeletal Musculoskeletal: absent: As Per HPI, Abnormal Gait, Arthralgias, Atrophy, Back Pain, Deformity, Joint Swelling, Limited Range of Motion, Loss of Height, Muscle Cramps, Muscle Weakness, Myalgias, Neck Pain, Numbness, Radiating Pain into Limb, Stiffness, Tingling, Other - Integumentary Integumentary: absent: As Per HPI, Acne, Alopecia, Bleeding Lesions, Change in Hair, Change in Nails, Change in Pigmentation, Changing Lesions, Dry Skin, Erythema, Furuncle, Hirsutism, Lesions, New Lesions, Non-Healing Lesions, Photosensitivity, Pruritus, Rash, Skin Pain, Skin Ulcer, Sores, Striae, Swelling, Unusual Bruising, Wounds, Jaundice, Other - Neurological Neurological: absent: As Per HPI, Abnormal Gait, Abnormal Hearing, Abnormal Movements, Abnormal Speech, Behavioral Changes, Burning Sensations, Confusion, Convulsions, Disequilibrium, Dizziness, Numbness, Focal Weakness, Frequent Falls, Headaches, Lack of Coordination, Loss of Vision, Memory Loss, Paresthesias, Radicular Pain, Restless Legs, Sensory Deficit, Syncope, Tingling, Tremor, Vertigo, Weakness, Other Visual Disturbances, Other - Psychiatric Psychiatric: absent: As Per HPI, Abnormal Sleep Pattern, Anhedonia, Anxiety, Auditory Hallucinations, Behavioral Changes, Change in Appetite, Change in Libido, Confusion, Depression, Difficulty Concentrating, Hallucinations, Homicidal Ideation, Hopelessness, Irritability, Memory Loss, Mood Swings, Panic Attacks, Paranoia, Suicidal Ideation, Visual Hallucinations, Tactile Hallucinations, Other - Endocrine Endocrine: absent: As Per HPI, Change in Body Appearance, Change in Libido, Cold Intolorance, Deepening of Voice, Excessive Sweating, Fatigue, Flushing, Heat Intolorance, Increase in Ring/Shoe/Hat Size, Palpitations, Polydipsia, Polyphagia, Polyuria, Other - Hematologic/Lymphatic Hematologic: absent: As Per HPI, Easy Bleeding, Easy Bruising, Lymphadenopathy, Other Past Patient History - Infectious Disease Hx of Infectious Diseases: None - Past Medical History & Family History Past Medical History?: Yes - Past Social History Smoking Status: Never Smoked - CARDIAC Hx Cardiac Disorders: No - PULMONARY Hx Respiratory Disorders: No - NEUROLOGICAL Hx Neurological Disorder: No - HEENT Hx HEENT Problems: No - RENAL Hx Chronic Kidney Disease: No - ENDOCRINE/METABOLIC Hx Endocrine Disorders: No - HEMATOLOGICAL/ONCOLOGICAL Hx Blood Disorders: Yes Other/Comment: jaundice 2011 - INTEGUMENTARY Hx Dermatological Problems: No - MUSCULOSKELETAL/RHEUMATOLOGICAL Hx Musculoskeletal Disorders: No Hx Falls: No - GASTROINTESTINAL Hx Gastrointestinal Disorders: No - GENITOURINARY/GYNECOLOGICAL Hx Genitourinary Disorders: No - PSYCHIATRIC Hx Psychophysiologic Disorder: No Hx Substance Use: No - SURGICAL HISTORY Hx Surgeries: No - ANESTHESIA Hx Anesthesia: No Hx Anesthesia Reactions: No Meds Allergies/Adverse Reactions: Allergies Allergy/AdvReac Type Severity Reaction Status Date / Time No Known Allergies Allergy Verified 08/21/18 21:45 - Medications Medications: Current Medications Acetaminophen (Tylenol 325mg Tab) 650 mg PO Q6 PRN PRN Reason: Fever >100.4 F Last Admin: 08/30/18 20:08 Dose: 650 mg Enoxaparin Sodium (Lovenox) 40 mg SC DAILY [facility] Last Admin: 09/01/18 09:05 Dose: 40 mg Folic Acid (Folic Acid) 1 mg PO DAILY [facility] Stop: 09/09/18 10:01 Last Admin: 09/01/18 09:05 Dose: 1 mg Dextrose/Sodium Chloride (Dextrose 5%/0.45% Ns 1000 Ml) 1,000 mls @ 100 mls/hr IV .Q10H [facility] Last Admin: 09/01/18 04:15 Dose: 100 mls/hr Meropenem 1 gm/ Sodium (Chloride) 100 mls @ 100 mls/hr IVPB Q8H [facility]; Protocol Last Admin: 09/01/18 07:59 Dose: 100 mls/hr Lactobacillus Acidophilus (Lactobacillus) 1 cap PO BID [facility] Last Admin: 09/01/18 09:05 Dose: 1 cap Pantoprazole Sodium (Protonix Ec Tab) 40 mg PO DAILY [facility] Last Admin: 09/01/18 09:05 Dose: 40 mg Physical Exam - Constitutional Appears: Well - Head Exam Head Exam: ATRAUMATIC, NORMAL INSPECTION, NORMOCEPHALIC - Eye Exam Eye Exam: EOMI, Normal appearance, PERRL Pupil Exam: NORMAL ACCOMODATION, PERRL - ENT Exam ENT Exam: Mucous Membranes Moist, Normal Exam - Neck Exam Neck exam: Positive for: Normal Inspection - Respiratory Exam Respiratory Exam: Clear to Auscultation Bilateral, NORMAL BREATHING PATTERN - Cardiovascular Exam Cardiovascular Exam: REGULAR RHYTHM - GI/Abdominal Exam GI & Abdominal Exam: Normal Bowel Sounds, Soft. absent: Tenderness - Rectal Exam Rectal Exam: Deferred - Extremities Exam Extremities exam: Positive for: normal inspection - Back Exam Back exam: NORMAL INSPECTION - Neurological Exam Neurological exam: Alert, CN II-XII Intact, Normal Gait, Oriented x3, Reflexes Normal - Psychiatric Exam Psychiatric exam: Normal Affect, Normal Mood - Skin Skin Exam: Dry, Intact, Normal Color, Warm Results - Vital Signs Recent Vital Signs: Last Vital Signs Temp 98.9 F 09/01/18 08:00 Pulse 97 H 09/01/18 08:00 Resp 20 09/01/18 08:00 BP 134/86 09/01/18 08:00 Pulse Ox 97 09/01/18 08:00 - Labs Result Diagrams: 09/01/18 09:05 09/01/18 09:05 Labs: Laboratory Results - last 24 hr 09/01/18 09/01/18 09:05 09:05 WBC 6.6 RBC 3.96 L Hgb 11.4 L Hct 34.6 L MCV 87.6 MCH 28.7 MCHC 32.8 L RDW 13.8 Plt Count 351 MPV 8.2 Neut % (Auto) 50.2 Lymph % (Auto) 37.0 Archer % (Auto) 11.3 H Eos % (Auto) 1.1 Baso % (Auto) 0.4 Neut # (Auto) 3.3 Lymph # (Auto) 2.4 Archer # (Auto) 0.7 Eos # (Auto) 0.1 Baso # (Auto) 0.0 Sodium 135 Potassium 4.2 Chloride 100 Carbon Dioxide 26 Anion Gap 13 BUN 4 L Creatinine 0.7 L Est GFR ( Amer) > 60 Est GFR (Non-Af Amer) > 60 Random Glucose 96 Calcium 9.2 Total Bilirubin 1.8 H AST 57 ALT 59 Alkaline Phosphatase 121 Total Protein 8.3 Albumin 4.4 Globulin 3.9 Albumin/Globulin Ratio 1.1 Assessment & Plan (1) Typhoid fever Status: Acute (2) Bacteremia Status: Acute - Assessment and Plan (Free Text) Assessment: 28 yo male with hx of 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
--- NOTE | 2018-09-01 15:11 | CP.PCM.PN ---
Subjective - Date & Time of Evaluation Date of Evaluation: 09/01/18 Time of Evaluation: 08:15 - Subjective Subjective: clinically same Objective - Vital Signs/Intake and Output Vital Signs (last 24 hours): Temp Pulse Resp BP Pulse Ox 98.9 F 97 H 20 134/86 97 09/01/18 08:00 09/01/18 08:00 09/01/18 08:00 09/01/18 08:00 09/01/18 08:00 Intake and Output: 09/01/18 09/01/18 06:59 18:59 Intake Total 2290 Balance 2290 - Medications Medications: Current Medications Acetaminophen (Tylenol 325mg Tab) 650 mg PO Q6 PRN PRN Reason: Fever >100.4 F Last Admin: 08/30/18 20:08 Dose: 650 mg Enoxaparin Sodium (Lovenox) 40 mg SC DAILY [facility] Last Admin: 09/01/18 09:05 Dose: 40 mg Folic Acid (Folic Acid) 1 mg PO DAILY [facility] Stop: 09/09/18 10:01 Last Admin: 09/01/18 09:05 Dose: 1 mg Dextrose/Sodium Chloride (Dextrose 5%/0.45% Ns 1000 Ml) 1,000 mls @ 100 mls/hr IV .Q10H [facility] Last Admin: 09/01/18 04:15 Dose: 100 mls/hr Meropenem 1 gm/ Sodium (Chloride) 100 mls @ 100 mls/hr IVPB Q8H [facility]; Protocol Last Admin: 09/01/18 07:59 Dose: 100 mls/hr Lactobacillus Acidophilus (Lactobacillus) 1 cap PO BID [facility] Last Admin: 09/01/18 09:05 Dose: 1 cap Pantoprazole Sodium (Protonix Ec Tab) 40 mg PO DAILY [facility] Last Admin: 09/01/18 09:05 Dose: 40 mg - Labs Labs: 09/01/18 09:05 09/01/18 09:05 PT 14.1 SECONDS (9.7-12.2) H 08/30/18 07:29 INR 1.3 08/30/18 07:29 APTT 34 SECONDS (21-34) 08/30/18 07:29 - Constitutional Appears: Well - Head Exam Head Exam: ATRAUMATIC, NORMAL INSPECTION, NORMOCEPHALIC - Eye Exam Eye Exam: EOMI, Normal appearance, PERRL Pupil Exam: NORMAL ACCOMODATION, PERRL - ENT Exam ENT Exam: Mucous Membranes Moist, Normal Exam - Neck Exam Neck Exam: Full ROM, Normal Inspection. absent: Lymphadenopathy - Respiratory Exam Respiratory Exam: Decreased Breath Sounds - Cardiovascular Exam Cardiovascular Exam: REGULAR RHYTHM, +S1, +S2 - GI/Abdominal Exam GI & Abdominal Exam: Soft, Diminished Bowel Sounds - Rectal Exam Rectal Exam: Deferred
--- NOTE | 2018-09-01 22:46 | CP.PCM.PN ---
Subjective - Date & Time of Evaluation Date of Evaluation: 09/01/18 Time of Evaluation: 22:46 - Subjective Subjective: PPD reading 9mm diameter induration. Denies history HIV, prior TB or contact with TB- infected individuals. No history organ transplant or immunosuppresion including chemotherapy or any other immunosuppressive drugs. < 10mm Negative PPD. Objective - Vital Signs/Intake and Output Vital Signs (last 24 hours): Temp Pulse Resp BP Pulse Ox 98.6 F 107 H 18 120/77 97 09/01/18 15:40 09/01/18 15:40 09/01/18 15:40 09/01/18 15:40 09/01/18 15:40 Intake and Output: 09/01/18 09/02/18 18:59 06:59 Intake Total 1175 Balance 1175 - Medications Medications: Current Medications Acetaminophen (Tylenol 325mg Tab) 650 mg PO Q6 PRN PRN Reason: Fever >100.4 F Last Admin: 08/30/18 20:08 Dose: 650 mg Enoxaparin Sodium (Lovenox) 40 mg SC DAILY [facility] Last Admin: 09/01/18 09:05 Dose: 40 mg Folic Acid (Folic Acid) 1 mg PO DAILY [facility] Stop: 09/09/18 10:01 Last Admin: 09/01/18 09:05 Dose: 1 mg Meropenem 1 gm/ Sodium (Chloride) 100 mls @ 100 mls/hr IVPB Q8H [facility]; Protocol Last Admin: 09/01/18 17:46 Dose: 100 mls/hr Dextrose/Sodium Chloride (Dextrose 5%/0.45% Ns 1000 Ml) 1,000 mls @ 100 mls/hr IV .Q10H [facility] Last Admin: 09/01/18 17:47 Dose: 100 mls/hr Lactobacillus Acidophilus (Lactobacillus) 1 cap PO BID [facility] Last Admin: 09/01/18 17:46 Dose: 1 cap Pantoprazole Sodium (Protonix Ec Tab) 40 mg PO DAILY [facility] Last Admin: 09/01/18 09:05 Dose: 40 mg - Labs Labs: 09/01/18 09:05 09/01/18 09:05 PT 14.1 SECONDS (9.7-12.2) H 08/30/18 07:29 INR 1.3 08/30/18 07:29 APTT 34 SECONDS (21-34) 08/30/18 07:29
[2018-09-02] MEDS: Meropenem 1 GM in Sodium Chloride 0.9% 100 ML IVPB SCH ×2 (08:04→16:19)
[2018-09-02 08:17] LABS: BASO % 0.4 % (0.0-2.0); EOS # 0.1 K/uL (0.0-0.7); EOS % 1.1 % (0.0-4.0); HEMOGLOBIN 11.2 g/dL (12.0-18.0); LYMPH # 2.3 K/uL (1.0-4.3); LYMPH % 41.1 % (20.0-40.0); MEAN CELL VOLUME 87.3 fL (80.0-94.0); MEAN CORPUSCULAR HEMOGLOBIN 28.7 pg (27.0-31.0); MEAN CORPUSCULAR HGB CONC 32.9 g/dL (33.0-37.0); MEAN PLATELET VOLUME 8.3 fL (7.2-11.7); MONO # 0.6 K/uL (0.0-0.8); NEUT # 2.6 K/uL (1.8-7.0); NEUT % 47.4 % (50.0-75.0); RBC 3.89 Mil/uL (4.40-5.90); RED CELL DISTRIBUTION WIDTH 13.3 % (11.5-14.5); WHITE BLOOD COUNT 5.6 K/uL (4.8-10.8)
[2018-09-02 08:30] LABS: ALB/GLOB RATIO 1.2 (1.0-2.1); ALBUMIN 4.2 g/dL (3.5-5.0); ALT/SGPT 48 U/L (21-72); AST/SGOT 52 U/L (17-59); BLOOD UREA NITROGEN 5 mg/dL (9-20); GFR NON-AFRICAN AMERICAN > 60
[2018-09-02 08:54] VITALS: RESP 20
[2018-09-02] MEDS: Pantoprazole 40 mg EC Tab PO SCH (09:01)
[2018-09-02] MEDS: Lactobacillus Acidophilus 500 MU Cap PO SCH ×2 (09:01→17:10)
[2018-09-02] MEDS: Enoxaparin 40 mg Syringe SC SCH (09:01)
--- NOTE | 2018-09-02 11:09 | CP.PCM.PN ---
"Subjective - Date & Time of Evaluation Date of Evaluation: 09/02/18 Time of Evaluation: 11:07 - Subjective Subjective: PGY-2 Progress Note Patient seen and examined at bedside. Patient still reporting some overnight sweating. Patient denies any chest pain, shortness of breath, fevers, chills, headaches, dizziness, or any other complaints. Objective - Vital Signs/Intake and Output Vital Signs (last 24 hours): Temp Pulse Resp BP Pulse Ox 98.6 F 85 20 123/79 96 09/02/18 08:54 09/02/18 08:54 09/02/18 08:54 09/02/18 08:54 09/02/18 08:54 Intake and Output: 09/02/18 09/02/18 06:59 18:59 Intake Total 1175 Balance 1175 - Medications Medications: Current Medications Acetaminophen (Tylenol 325mg Tab) 650 mg PO Q6 PRN PRN Reason: Fever >100.4 F Last Admin: 08/30/18 20:08 Dose: 650 mg Enoxaparin Sodium (Lovenox) 40 mg SC DAILY [facility] Last Admin: 09/02/18 09:01 Dose: 40 mg Folic Acid (Folic Acid) 1 mg PO DAILY [facility] Stop: 09/09/18 10:01 Last Admin: 09/02/18 09:01 Dose: 1 mg Meropenem 1 gm/ Sodium (Chloride) 100 mls @ 100 mls/hr IVPB Q8H [facility]; Protocol Last Admin: 09/02/18 08:04 Dose: 100 mls/hr Dextrose/Sodium Chloride (Dextrose 5%/0.45% Ns 1000 Ml) 1,000 mls @ 100 mls/hr IV .Q10H [facility] Last Admin: 09/01/18 17:47 Dose: 100 mls/hr Lactobacillus Acidophilus (Lactobacillus) 1 cap PO BID [facility] Last Admin: 09/02/18 09:01 Dose: 1 cap Pantoprazole Sodium (Protonix Ec Tab) 40 mg PO DAILY [facility] Last Admin: 09/02/18 09:01 Dose: 40 mg - Labs Labs: 09/02/18 08:06 09/02/18 08:06 PT 14.1 SECONDS (9.7-12.2) H 08/30/18 07:29 INR 1.3 08/30/18 07:29 APTT 34 SECONDS (21-34) 08/30/18 07:29 - Head Exam Head Exam: ATRAUMATIC, NORMAL INSPECTION - Eye Exam Eye Exam: EOMI, Normal appearance, PERRL Pupil Exam: NORMAL ACCOMODATION - ENT Exam ENT Exam: Mucous Membranes Moist, Normal Oropharynx - Respiratory Exam Respiratory Exam: Clear to Ausculation Bilateral, NORMAL BREATHING PATTERN - Cardiovascular Exam Cardiovascular Exam: REGULAR RHYTHM, +S1 - GI/Abdominal Exam GI & Abdominal Exam: Soft, Normal Bowel Sounds - Extremities Exam Extremities Exam: Full ROM, Normal Inspection. absent: Pedal Edema - Back Exam Back Exam: NORMAL INSPECTION. absent: CVA tenderness (R), paraspinal tenderness - Neurological Exam Neurological Exam: Alert, Awake, Oriented x3 - Psychiatric Exam Psychiatric exam: Normal Affect, Normal Mood. absent: Depressed - Skin Skin Exam: Normal Color, Warm Assessment and Plan - Assessment and Plan (Free Text) Assessment: 28 year old male with a PMHx significant for nephrolithiasis and prior episode of jaundice who presented to the E.D with fever and generalized malaise. Ann jamison was originally discharged from the ED. His cultures grew Salmonella and patient was called to return to the hospital for evaluation and treatment of typhoid fever/salmonella bacteremia Plan: Salmonella Bacteremia No Leukocytosis, Febrile Overnight. Blood Cultures (08/21/18) - POSITIVE for Salmonella Group A Blood Cultures (08/25/18) - NEGATIVE x 3 days Negative Studies: HIV, Hepatitis Infectious mono, Blood parasite Smear, Dengue Fever IgM Positive Studies: Dengue Fever IgG - 1.6 (Likely indicative of past infection . Chest abdomen/pelvis taken. Will f/u with read. Duplex lower extremity taken. Will f/u with read. Mgmt: Bactrim IV Q8H (Started on 08/24/18)-Discontinued Meropenem 1gram Q8H (Started on 08/29/18) Tylenol 650 PO Q6H PRN for pain (Use sparingly due to elevated liver enzymes) Typhoid Fever Febrile Overnight Stool Culture (08/25/18) - POSITIVE for Salmonella Stool Culture (08/28/18) - NEGATIVE Mgmt: Bactrim IV Q8H (Started on 08/24/18-Discontinued Meropenem 1gram Q8H (Started on 08/29/18) Tylenol 650 PO Q6H PRN for pain (Use sparingly due to elevated liver enzymes) D5 in 1/2 NS @ 100mls/hr Consider repeating Dengue IgM and IgG next week to check for increase in Dengue Fever IgG. If increase is more than four fold (over 6.4). Patient may have new infection. Anemia Likely hemolytic Anemia 2/2 to infectious process Haptoglobin < 20 | Retic Count 1.7 (Retic Index 1.49) | DIC Panel :PT-141 :PTT:34 :d- DIMER :531 :Fibrinogen:533 Elevated LFT's (Improving) GI Consult (Dr. Wells), Recs Appreciated. Likely 2/2 to Typhoid Hepatitis Hepatitis panel - NEGATIVE Proph Lovenox 40 Daily Lactobacillus 1cap PO BID Protonix 40mg PO Daily Dispo: Awaiting culture sensitivies. Per ID Dr. Bucio, want to verify its not resistant to Merrem, otherwise it has a change of relapse. Patient discussed with Attending (Dr. Christian Bartholomew) Nando Santos, PGY-2"
--- NOTE | 2018-09-02 13:15 | CP.PCM.PN ---
Subjective - Date & Time of Evaluation Date of Evaluation: 09/02/18 Time of Evaluation: 13:15 - Subjective Subjective: dictated Objective - Vital Signs/Intake and Output Vital Signs (last 24 hours): Temp Pulse Resp BP Pulse Ox 98.6 F 85 20 123/79 96 09/02/18 08:54 09/02/18 08:54 09/02/18 08:54 09/02/18 08:54 09/02/18 08:54 Intake and Output: 09/02/18 09/02/18 06:59 18:59 Intake Total 1175 Balance 1175 - Medications Medications: Current Medications Acetaminophen (Tylenol 325mg Tab) 650 mg PO Q6 PRN PRN Reason: Fever >100.4 F Last Admin: 08/30/18 20:08 Dose: 650 mg Enoxaparin Sodium (Lovenox) 40 mg SC DAILY [facility] Last Admin: 09/02/18 09:01 Dose: 40 mg Folic Acid (Folic Acid) 1 mg PO DAILY [facility] Stop: 09/09/18 10:01 Last Admin: 09/02/18 09:01 Dose: 1 mg Meropenem 1 gm/ Sodium (Chloride) 100 mls @ 100 mls/hr IVPB Q8H [facility]; Protocol Last Admin: 09/02/18 08:04 Dose: 100 mls/hr Dextrose/Sodium Chloride (Dextrose 5%/0.45% Ns 1000 Ml) 1,000 mls @ 100 mls/hr IV .Q10H [facility] Last Admin: 09/01/18 17:47 Dose: 100 mls/hr Lactobacillus Acidophilus (Lactobacillus) 1 cap PO BID [facility] Last Admin: 09/02/18 09:01 Dose: 1 cap Pantoprazole Sodium (Protonix Ec Tab) 40 mg PO DAILY [facility] Last Admin: 09/02/18 09:01 Dose: 40 mg - Labs Labs: 09/02/18 08:06 09/02/18 08:06 PT 14.1 SECONDS (9.7-12.2) H 08/30/18 07:29 INR 1.3 08/30/18 07:29 APTT 34 SECONDS (21-34) 08/30/18 07:29
[2018-09-02] MEDS: Dextrose 5%/0.45% NS 1,000 ML IV SCH ×3 (13:18→22:20)
--- NOTE | 2018-09-02 18:22 | CP.PCM.PN ---
Subjective - Date & Time of Evaluation Date of Evaluation: 09/02/18 Time of Evaluation: 08:00 - Subjective Subjective: afebrile awaiting sensitivity reports from Micro repeat blood cultures neg Objective - Vital Signs/Intake and Output Vital Signs (last 24 hours): Temp Pulse Resp BP Pulse Ox 98.4 F 95 H 20 115/75 98 09/02/18 15:00 09/02/18 17:14 09/02/18 15:00 09/02/18 15:00 09/02/18 15:00 Intake and Output: 09/02/18 09/02/18 06:59 18:59 Intake Total 1175 Balance 1175 - Medications Medications: Current Medications Acetaminophen (Tylenol 325mg Tab) 650 mg PO Q6 PRN PRN Reason: Fever >100.4 F Last Admin: 08/30/18 20:08 Dose: 650 mg Enoxaparin Sodium (Lovenox) 40 mg SC DAILY [facility] Last Admin: 09/02/18 09:01 Dose: 40 mg Folic Acid (Folic Acid) 1 mg PO DAILY [facility] Stop: 09/09/18 10:01 Last Admin: 09/02/18 09:01 Dose: 1 mg Meropenem 1 gm/ Sodium (Chloride) 100 mls @ 100 mls/hr IVPB Q8H [facility]; Protocol Last Admin: 09/02/18 16:19 Dose: 100 mls/hr Dextrose/Sodium Chloride (Dextrose 5%/0.45% Ns 1000 Ml) 1,000 mls @ 100 mls/hr IV .Q10H [facility] Last Admin: 09/02/18 17:11 Dose: 100 mls/hr Lactobacillus Acidophilus (Lactobacillus) 1 cap PO BID [facility] Last Admin: 09/02/18 17:10 Dose: 1 cap Pantoprazole Sodium (Protonix Ec Tab) 40 mg PO DAILY [facility] Last Admin: 09/02/18 09:01 Dose: 40 mg - Labs Labs: 09/02/18 08:06 09/02/18 08:06 PT 14.1 SECONDS (9.7-12.2) H 08/30/18 07:29 INR 1.3 08/30/18 07:29 APTT 34 SECONDS (21-34) 08/30/18 07:29 - Constitutional Appears: Well - Head Exam Head Exam: ATRAUMATIC, NORMAL INSPECTION, NORMOCEPHALIC - Eye Exam Eye Exam: EOMI, Normal appearance, PERRL Pupil Exam: NORMAL ACCOMODATION, PERRL - ENT Exam ENT Exam: Mucous Membranes Moist, Normal Exam - Neck Exam Neck Exam: Full ROM, Normal Inspection. absent: Lymphadenopathy - Respiratory Exam Respiratory Exam: Clear to Ausculation Bilateral, NORMAL BREATHING PATTERN - Cardiovascular Exam Cardiovascular Exam: REGULAR RHYTHM, +S1, +S2. absent: Murmur - GI/Abdominal Exam GI & Abdominal Exam: Soft, Normal Bowel Sounds. absent: Tenderness - Rectal Exam Rectal Exam: NORMAL INSPECTION - Exam Exam: Circumcision, NORMAL INSPECTION External exam: NORMAL EXTERNAL EXAM Speculum exam: NORMAL SPECULUM EXAM Bimanual exam: NORMAL BIMANUAL EXAM - Extremities Exam Extremities Exam: Full ROM, Normal Capillary Refill, Normal Inspection. absent: Joint Swelling, Pedal Edema - Back Exam Back Exam: NORMAL INSPECTION - Neurological Exam Neurological Exam: Alert, Awake, CN II-XII Intact, Normal Gait, Oriented x3 - Psychiatric Exam Psychiatric exam: Normal Affect, Normal Mood - Skin Skin Exam: Dry, Intact, Normal Color, Warm Assessment and Plan (1) Typhoid fever Status: Acute (2) Bacteremia Status: Acute - Assessment and Plan (Free Text) Assessment: improving has received 13 days IV merrem aWAIT SENSITIVITY REPORT
--- NOTE | 2018-09-02 20:17 | PN ---
DATE: 09/02/2018 INFECTIOUS DISEASE FOLLOWUP SUBJECTIVE: The patient is feeling better. He had no more fevers since we removed Bactrim and he has also been having normal bowel movements. He had Salmonella bacteremia, hence he needs at least 14 days. I think tomorrow is the last day and will be done with it and then he can probably go home if he remains stable. He denies any nausea, vomiting. He is tolerating food. I also recommended him to get a CAT scan done 4 to 6 weeks later just to make sure that these lymph nodes and hepatosplenomegaly are decreasing as this could be part of the Salmonella bacteremia and infection. PHYSICAL EXAMINATION: VITAL SIGNS: T-max is 98.4, pulse 99, blood pressure 115/75, respirations are 20. HEENT: Head is atraumatic, normocephalic. Pupils are reacting to light. No icterus present. NECK: Supple. LUNGS: Clear. HEART: S1, S2 are regular. ABDOMEN: Soft, nontender. No guarding, no rigidity present. EXTREMITIES: No edema. He is ambulating well. LABORATORY DATA: White count is 5.6, hemoglobin 11.2, hematocrit 33.9. Chemistries show his total bili is 1.4 and liver enzymes are all back to normal now. We did a procalcitonin on 08/30/2018, which was 0.14. His blood cultures and stool cultures are negative. PLAN: So the plan is to discharge him tomorrow after his second dose and the plan was discussed with the primary also and with nurse practitioner and we will discontinue the IV fluids at this time and follow. Christi Fragoso MD
--- NOTE | 2018-09-02 21:23 | CP.PCM.PN ---
Subjective - Date & Time of Evaluation Date of Evaluation: 09/02/18 Time of Evaluation: 08:30 - Subjective Subjective: clinically same Objective - Vital Signs/Intake and Output Vital Signs (last 24 hours): Temp Pulse Resp BP Pulse Ox 98.4 F 95 H 20 115/75 98 09/02/18 15:00 09/02/18 17:14 09/02/18 15:00 09/02/18 15:00 09/02/18 15:00 - Medications Medications: Current Medications Acetaminophen (Tylenol 325mg Tab) 650 mg PO Q6 PRN PRN Reason: Fever >100.4 F Last Admin: 08/30/18 20:08 Dose: 650 mg Enoxaparin Sodium (Lovenox) 40 mg SC DAILY [facility] Last Admin: 09/02/18 09:01 Dose: 40 mg Folic Acid (Folic Acid) 1 mg PO DAILY [facility] Stop: 09/09/18 10:01 Last Admin: 09/02/18 09:01 Dose: 1 mg Meropenem 1 gm/ Sodium (Chloride) 100 mls @ 100 mls/hr IVPB Q8H [facility]; Protocol Last Admin: 09/02/18 16:19 Dose: 100 mls/hr Dextrose/Sodium Chloride (Dextrose 5%/0.45% Ns 1000 Ml) 1,000 mls @ 100 mls/hr IV .Q10H [facility] Last Admin: 09/02/18 17:11 Dose: 100 mls/hr Lactobacillus Acidophilus (Lactobacillus) 1 cap PO BID [facility] Last Admin: 09/02/18 17:10 Dose: 1 cap Pantoprazole Sodium (Protonix Ec Tab) 40 mg PO DAILY [facility] Last Admin: 09/02/18 09:01 Dose: 40 mg - Labs Labs: 09/02/18 08:06 09/02/18 08:06 PT 14.1 SECONDS (9.7-12.2) H 08/30/18 07:29 INR 1.3 08/30/18 07:29 APTT 34 SECONDS (21-34) 08/30/18 07:29 - Constitutional Appears: Well - Head Exam Head Exam: ATRAUMATIC, NORMAL INSPECTION, NORMOCEPHALIC - Eye Exam Eye Exam: EOMI, Normal appearance, PERRL Pupil Exam: NORMAL ACCOMODATION, PERRL - ENT Exam ENT Exam: Mucous Membranes Moist, Normal Exam - Neck Exam Neck Exam: Full ROM, Normal Inspection. absent: Lymphadenopathy - Respiratory Exam Respiratory Exam: Decreased Breath Sounds - Cardiovascular Exam Cardiovascular Exam: REGULAR RHYTHM, +S1, +S2 - GI/Abdominal Exam GI & Abdominal Exam: Soft, Diminished Bowel Sounds - Rectal Exam Rectal Exam: Deferred
[2018-09-03] MEDS: Meropenem 1 GM in Sodium Chloride 0.9% 100 ML IVPB SCH ×4 (01:00→22:00)
[2018-09-03 08:23] LABS: BASO % 0.7 % (0.0-2.0); EOS # 0.1 K/uL (0.0-0.7); HEMOGLOBIN 10.6 g/dL (12.0-18.0); LYMPH % 42.3 % (20.0-40.0); MEAN CELL VOLUME 87.7 fL (80.0-94.0); MEAN CORPUSCULAR HEMOGLOBIN 28.4 pg (27.0-31.0); MEAN CORPUSCULAR HGB CONC 32.3 g/dL (33.0-37.0); MONO # 0.5 K/uL (0.0-0.8); MONO % 9.7 % (0.0-10.0); NEUT # 2.2 K/uL (1.8-7.0); NEUT % 45.3 % (50.0-75.0); NRBC % 0.1 % (0.0-2.0); RBC 3.73 Mil/uL (4.40-5.90); RED CELL DISTRIBUTION WIDTH 13.7 % (11.5-14.5); WHITE BLOOD COUNT 4.8 K/uL (4.8-10.8)
[2018-09-03 08:56] LABS: ALB/GLOB RATIO 1.1 (1.0-2.1); ALT/SGPT 45 U/L (21-72); AST/SGOT 48 U/L (17-59); BLOOD UREA NITROGEN 4 mg/dL (9-20); CALCIUM 8.7 mg/dl (8.6-10.4); GFR NON-AFRICAN AMERICAN > 60
[2018-09-03] MEDS: Dextrose 5%/0.45% NS 1,000 ML IV SCH ×3 (09:22→18:51)
[2018-09-03] MEDS: Enoxaparin 40 mg Syringe SC SCH (09:22)
[2018-09-03] MEDS: Lactobacillus Acidophilus 500 MU Cap PO SCH ×2 (09:22→18:49)
[2018-09-03] MEDS: Pantoprazole 40 mg EC Tab PO SCH (09:22)
--- NOTE | 2018-09-03 13:44 | CP.PCM.PN ---
"Subjective - Date & Time of Evaluation Date of Evaluation: 09/03/18 Time of Evaluation: 10:15 - Subjective Subjective: Patient seen and examined at bedside. No overnight events reported. Patient denies any fever, chills, SOB, chest pain, abdominal pain, n/v changes in bowel habits and diarrhea. Objective - Vital Signs/Intake and Output Vital Signs (last 24 hours): Temp Pulse Resp BP Pulse Ox 98.3 F 82 20 106/66 97 09/03/18 07:49 09/03/18 07:49 09/03/18 07:49 09/03/18 07:49 09/03/18 07:49 Intake and Output: 09/03/18 09/03/18 06:59 18:59 Intake Total 1300 Balance 1300 - Medications Medications: Current Medications Acetaminophen (Tylenol 325mg Tab) 650 mg PO Q6 PRN PRN Reason: Fever >100.4 F Last Admin: 08/30/18 20:08 Dose: 650 mg Enoxaparin Sodium (Lovenox) 40 mg SC DAILY [facility] Last Admin: 09/03/18 09:22 Dose: Not Given Folic Acid (Folic Acid) 1 mg PO DAILY [facility] Stop: 09/09/18 10:01 Last Admin: 09/03/18 09:22 Dose: 1 mg Meropenem 1 gm/ Sodium (Chloride) 100 mls @ 100 mls/hr IVPB Q8H [facility]; Protocol Last Admin: 09/03/18 09:00 Dose: 100 mls/hr Dextrose/Sodium Chloride (Dextrose 5%/0.45% Ns 1000 Ml) 1,000 mls @ 100 mls/hr IV .Q10H [facility] Last Admin: 09/03/18 09:22 Dose: Not Given Lactobacillus Acidophilus (Lactobacillus) 1 cap PO BID [facility] Last Admin: 09/03/18 09:22 Dose: 1 cap Pantoprazole Sodium (Protonix Ec Tab) 40 mg PO DAILY [facility] Last Admin: 09/03/18 09:22 Dose: 40 mg - Labs Labs: 09/03/18 08:08 09/03/18 08:08 PT 14.1 SECONDS (9.7-12.2) H 08/30/18 07:29 INR 1.3 08/30/18 07:29 APTT 34 SECONDS (21-34) 08/30/18 07:29 - Additional Findings Additional findings: - Constitutional Appears: Well, Non-toxic, No Acute Distress - Head Exam Head Exam: ATRAUMATIC, NORMAL INSPECTION, NORMOCEPHALIC - Eye Exam Eye Exam: EOMI. absent: Scleral icterus - Neck Exam Neck Exam: Normal Inspection. absent: Lymphadenopathy (No Anterior/Posterior Cervical, Supraclavicular, or Auricular. ), Tenderness, Thyromegaly - Respiratory Exam Respiratory Exam: Clear to Ausculation Bilateral - Cardiovascular Exam Cardiovascular Exam: RRR, +S1, +S2. absent: Murmur - GI/Abdominal Exam GI & Abdominal Exam: Soft, Non-Tender, Normal Bowel Sounds Additional comments: Negative Boykin's Sign. - Extremities Exam Extremities Exam: Normal Capillary Refill, Normal Inspection - Neurological Exam Neurological Exam: Alert, Awake, Oriented x3 - Psychiatric Exam Psychiatric exam: Normal Affect, Normal Mood - Skin Skin Exam: Dry, Intact, Normal Color, Warm Assessment and Plan - Assessment and Plan (Free Text) Assessment: 28 year old male with a PMHx significant for nephrolithiasis and prior episode of jaundice who presented to the E.D with fever and generalized malaise. Didier up was originally discharged from the ED. His cultures grew Salmonella and patient was called to return to the hospital for evaluation and treatment of typhoid fever/salmonella bacteremia Plan: Salmonella Bacteremia No Leukocytosis, Febrile Overnight. Blood Cultures (08/21/18) - POSITIVE for Salmonella Group A Blood Cultures (08/25/18) - NEGATIVE x 5 days Negative Studies: HIV, Hepatitis Infectious mono, Blood parasite Smear, Dengue Fever IgM Positive Studies: Dengue Fever IgG - 1.6 (Likely indicative of past infection . Chest abdomen/pelvis taken. Will f/u with read. Duplex lower extremity taken. Will f/u with read. Mgmt: Bactrim IV Q8H (Started on 08/24/18)-Discontinued Meropenem 1gram Q8H (Started on 08/29/18) Tylenol 650 PO Q6H PRN for pain (Use sparingly due to elevated liver enzymes) Typhoid Fever Febrile Overnight Stool Culture (08/25/18) - POSITIVE for Salmonella Stool Culture (08/28/18) - NEGATIVE Mgmt: Meropenem 1gram Q8H (Started on 08/29/18) Tylenol 650 PO Q6H PRN for pain (Use sparingly due to elevated liver enzymes) D5 in 1/2 NS @ 100mls/hr Consider repeating Dengue IgM and IgG next week to check for increase in Dengue Fever IgG. If increase is more than four fold (over 6.4). Patient may have new infection. Anemia Likely hemolytic Anemia 2/2 to infectious process Haptoglobin < 20 | Retic Count 1.7 (Retic Index 1.49) | DIC Panel :PT-141 :PTT:34 :d- DIMER :531 :Fibrinogen:533 Elevated LFT's (Resolved) GI Consult (Dr. Wells), Recs Appreciated. Likely 2/2 to Typhoid Hepatitis Hepatitis panel - NEGATIVE Proph Lovenox 40 Daily Lactobacillus 1cap PO BID Protonix 40mg PO Daily Dispo: Patient to be discharged TODAY (09/03/18) after his final dose of IV meropenem. He will go home with Bactrim DS BID x 14 days and Florastor 1 cap BID x 14 days. He is to follow up with Dr. Fredy Bartholomew in his office this Sunday. Patient also will need CT Abd/Pelvis in 4-6 weeks for reassessment of lymphadenopathy and splenomegaly. Patient discussed with Attending (Dr. Fredy Bartholomew) Bishop Winkler, PGY-2"
[2018-09-03 15:26] VITALS: BP 106/70; PULSE 88; TEMP 97.8; O2SAT 99
--- NOTE | 2018-09-03 18:56 | CP.PCM.PN ---
Subjective - Date & Time of Evaluation Date of Evaluation: 09/03/18 Time of Evaluation: 08:30 - Subjective Subjective: clinically same Objective - Vital Signs/Intake and Output Vital Signs (last 24 hours): Temp Pulse Resp BP Pulse Ox 97.8 F 88 20 106/70 99 09/03/18 15:00 09/03/18 15:00 09/03/18 15:00 09/03/18 15:00 09/03/18 15:00 Intake and Output: 09/03/18 09/03/18 06:59 18:59 Intake Total 1300 Balance 1300 - Medications Medications: Current Medications Acetaminophen (Tylenol 325mg Tab) 650 mg PO Q6 PRN PRN Reason: Fever >100.4 F Last Admin: 08/30/18 20:08 Dose: 650 mg Enoxaparin Sodium (Lovenox) 40 mg SC DAILY [facility] Last Admin: 09/03/18 09:22 Dose: Not Given Folic Acid (Folic Acid) 1 mg PO DAILY [facility] Stop: 09/09/18 10:01 Last Admin: 09/03/18 09:22 Dose: 1 mg Dextrose/Sodium Chloride (Dextrose 5%/0.45% Ns 1000 Ml) 1,000 mls @ 100 mls/hr IV .Q10H [facility] Last Admin: 09/03/18 18:51 Dose: 100 mls/hr Meropenem 1 gm/ Sodium (Chloride) 100 mls @ 100 mls/hr IVPB Q8H [facility]; Protocol Stop: 09/03/18 23:59 Last Admin: 09/03/18 15:34 Dose: 100 mls/hr Lactobacillus Acidophilus (Lactobacillus) 1 cap PO BID [facility] Last Admin: 09/03/18 18:49 Dose: 1 cap Pantoprazole Sodium (Protonix Ec Tab) 40 mg PO DAILY [facility] Last Admin: 09/03/18 09:22 Dose: 40 mg - Labs Labs: 09/03/18 08:08 09/03/18 08:08 PT 14.1 SECONDS (9.7-12.2) H 08/30/18 07:29 INR 1.3 08/30/18 07:29 APTT 34 SECONDS (21-34) 08/30/18 07:29 - Constitutional Appears: Well - Head Exam Head Exam: ATRAUMATIC, NORMAL INSPECTION, NORMOCEPHALIC - Eye Exam Eye Exam: EOMI, Normal appearance, PERRL Pupil Exam: NORMAL ACCOMODATION, PERRL - ENT Exam ENT Exam: Mucous Membranes Moist, Normal Exam - Neck Exam Neck Exam: Full ROM, Normal Inspection. absent: Lymphadenopathy - Respiratory Exam Respiratory Exam: Decreased Breath Sounds - Cardiovascular Exam Cardiovascular Exam: REGULAR RHYTHM, +S1, +S2 - GI/Abdominal Exam GI & Abdominal Exam: Soft, Diminished Bowel Sounds - Rectal Exam Rectal Exam: Deferred
== END 2018-09-03 23:11 | disposition home or self-care (01) | DRG 867 ==
LOC: C.ER 21:36 → C.9E 22:45 → C.5S 08-22 07:01
PROVIDERS: ADMIT Internal Medicine Nephrology; ATTEND Internal Medicine Nephrology
DX: A01.0 Typhoid fever (principal); A02.1 Salmonella sepsis; D58.9 Hereditary hemolytic anemia, unspecified; A90 Dengue fever [classical dengue]; R59.0 Localized enlarged lymph nodes; R16.2 Hepatomegaly with splenomegaly, not elsewhere classified; Z87.442 Personal history of urinary calculi

== ENCOUNTER 2018-10-05 08:38 | Outpatient (CLI) | payer BC | END 2018-10-05 08:39 | disposition home or self-care (01) | LOC: C.CTH 08:38 ==